=== PATIENT | male | born 1955 | race Caucasian/White ===

== ENCOUNTER → 2021-08-08 10:22 | Outpatient (BNVA) | payer MEDICARE, SELFPAY | PROVIDERS: PCP Physician Assistant; Visit Provider Urology | DX: N40.1 Benign prostatic hyperplasia with lower urinary tract symptoms (principal); N13.8 Other obstructive and reflux uropathy; R39.12 Poor urinary stream | CPT/HCPCS: 51798; 99202 ==

== ENCOUNTER 2021-09-11 15:08 | Outpatient (REF) | payer MEDICARE, SELFPAY ==
--- NOTE | ~2021-09-11 | US_ITS ---
EXAMINATION: US PELVIS LIMITED (BLADDER) CLINICAL INFORMATION: Poor urinary stream, BPH. COMPARISON: None TECHNIQUE: Real-time imaging of the bladder. FINDINGS: BLADDER: Well distended and normal. Bilateral ureteral jets are demonstrated. Prevoid bladder volume is 702 mL. Postvoid bladder volume is 303 mL. OTHER: Prostate dimensions are 3.7 x 2.8 x 4.7 cm (volume 25.4 mL). US/US bladder IMPRESSION: Findings are consistent with a significantly increased postvoid residual volume.
== END 2021-09-11 15:09 | disposition home or self-care (01) ==
LOC: HO.HMGCX 15:08
PROVIDERS: Visit Provider Urology
DX: R39.12 Poor urinary stream (principal); N40.0 Benign prostatic hyperplasia without lower urinary tract symptoms
CPT/HCPCS: 76857

== ENCOUNTER → 2021-10-10 14:04 | Outpatient (BNVA) | payer MEDICARE, SELFPAY | PROVIDERS: PCP Internal Medicine; Visit Provider Urology | DX: N40.0 Benign prostatic hyperplasia without lower urinary tract symptoms (principal); R53.83 Other fatigue; E29.1 Testicular hypofunction | CPT/HCPCS: 52000; 99212 ==

== ENCOUNTER 2021-12-29 08:00 | Outpatient (REF) | payer MEDICARE, SELFPAY ==
[2022-01-02 15:52] LABS: Testosterone, Free 43.3 pg/mL (35.0-155.0); Testosterone, Total 285 ng/dL (250-1100)
== END 2021-12-29 08:01 | disposition home or self-care (01) ==
LOC: HO.HMGCLDS 08:00
PROVIDERS: Visit Provider Urology
DX: R53.83 Other fatigue (principal); E29.1 Testicular hypofunction
CPT/HCPCS: 36415; 84402; 84403

== ENCOUNTER → 2022-01-13 14:21 | Outpatient (BNVA) | payer MEDICARE, SELFPAY | PROVIDERS: PCP Internal Medicine; Visit Provider Urology | DX: N40.0 Benign prostatic hyperplasia without lower urinary tract symptoms (principal); R68.82 Decreased libido | CPT/HCPCS: Q3014 ==

== ENCOUNTER 2022-04-01 08:36 | Outpatient (REF) | payer MEDICARE, SELFPAY ==
[2022-04-03 01:34] LABS: Follicle Stimulating Hormone 9.1 mIU/mL (1.6-8.0); Lutenizing Hormone 5.2 mIU/mL (1.6-15.2)
[2022-04-03 06:24] LABS: Sex Hormone Binding Globulin 26 nmol/L (22-77)
[2022-04-09 14:13] LABS: Testosterone, Total 309 ng/dL (250-1100)
== END 2022-04-01 08:37 | disposition home or self-care (01) ==
LOC: HO.HMGCLDS 08:36
PROVIDERS: PCP Internal Medicine; Visit Provider Urology
DX: R68.82 Decreased libido (principal)
CPT/HCPCS: 36415; 83001; 83002; 84270; 84402; 84403

== ENCOUNTER → 2022-04-15 13:22 | Outpatient (BNVA) | payer MEDICARE, SELFPAY | PROVIDERS: PCP Internal Medicine; Visit Provider Urology | DX: N40.1 Benign prostatic hyperplasia with lower urinary tract symptoms (principal); N13.8 Other obstructive and reflux uropathy; E29.1 Testicular hypofunction; N52.1 Erectile dysfunction due to diseases classified elsewhere; R97.20 Elevated prostate specific antigen [PSA]; E11.69 Type 2 diabetes mellitus with other specified complication; Z79.899 Other long term (current) drug therapy | CPT/HCPCS: Q3014 ==

== ENCOUNTER 2022-10-01 08:53 | Outpatient (REF) | payer MEDICARE, SELFPAY ==
[2022-10-03 02:24] LABS: Lutenizing Hormone 5.8 mIU/mL (1.6-15.2)
[2022-10-06 17:08] LABS: Testosterone, Total 266 ng/dL (250-1100)
== END 2022-10-01 08:54 | disposition home or self-care (01) ==
LOC: HO.HMGCLDS 08:53
PROVIDERS: PCP Internal Medicine; Visit Provider Urology
DX: E29.1 Testicular hypofunction (principal); E11.69 Type 2 diabetes mellitus with other specified complication; N52.1 Erectile dysfunction due to diseases classified elsewhere
CPT/HCPCS: 36415; 83002; 84402; 84403

== ENCOUNTER 2022-10-16 09:46 | Outpatient (AMB) | payer MEDICARE, SELFPAY ==
--- NOTE | 2022-10-16 09:48 | MHC.OFFVIS ---
Intake Intake Visit Reasons: 6M LH/Testo(pending) Intake Note: Patient is present for Follow Up Labs/pvr Urology Med: Tadalafil, Terazosin Antibiotic Allergy:None Blood Thinner: Aspirin [facility]: [facility] PVR 205ML Allergies No Known Allergies Allergy (Verified 10/16/22 09:57) Medication List - Last Reconciled 10/16/22 by Cosme Astorga MD aspirin (Adult Low Dose Aspirin) 81 mg PO DAILY rosuvastatin 40 mg PO tadalafil 5 mg PO DAILY 90 days terazosin 10 mg PO BEDTIME 90 days HPI HPI Comments History of Present Illness Details Leno is a very pleasant male. He is a patient of Dr. Duong. Seen for the following urologic conditions - lower urinary tract symptom - hypogonadism Persistently low total testosterone with adequate free testosterone Symptomatically stable Reviewed current lab work. Free testosterone good FSH elevated On rosuvastatin which has suppression activity on testosterone Recommend discussion with supervisor beater room regarding reduction of rosuvastatin Continue tadalafil daily which should increase testosterone Lower urinary tract symptoms Initial presentation with progressive weakness of stream, nocturia Current therapy terazosin Prior procedure 1999 for bladder neck Hypogonadism Labs 10/20 235, 12/20 285, T 04/23 310 F 46 FSH 9 LH 5.2, 10/21 T 266 F 62 LH 5.8 Low interest, normal erections On statins 40mg rosuvastatin PFSH Medical History BPH (benign prostatic hyperplasia) Enlarged prostate Hyperlipidemia Osteoarthritis of both hands Prostatism Surgical History History of carpal tunnel surgery Review of Systems Const Denies chills and Denies fever(s) Card Reports no additional complaints and Denies syncope Resp Denies cough GI Denies abdominal pain and Denies heartburn Reports as per HPI and Denies change in libido Neuro Denies syncope Psych Denies change in libido Endo Denies change in libido Physical Exam Const General: cooperative, healthy appearing, comfortable and no acute distress Orientation/consciousness: patient oriented x3 HEENT Face and sinus: Yes normal facial exam Mouth: moist mucous membranes Neck Neck: Yes normal visual inspection, Yes full ROM and Yes trachea midline Chest Chest palpation & inspection: normal inspection of the chest Resp Effort & Inspection: normal respiratory effort, able to speak in complete sentences and no respiratory distress GI Inspection: Yes normal to inspection Back/Spine/Pelvis Cervical Spine: normal cervical lordosis Thoracic/Lumbar Spine: thoracic and lumbar spine normal to inspection Skin General skin exam: no rashes or lesions noted Neuro General: patient oriented x3, gait normal, tone normal and moves all extremities Extrem General: Yes normal to inspection and Yes capillary refill normal Office Procedures Post Void Residual Post Residual Void Post Void Residual (PVR): [id number] Void Residual by ultrasound Assessment & Plan Assessment & Plan (1) Hypogonadism in male: Code(s): E29.1 - Testicular hypofunction (2) Libido, decreased: Code(s): R68.82 - Decreased libido Plan Six month follow-up lab work Orders: Orders AMB Post Void Residual by ultrasound 10/16/22 N40.0 - Benign prostatic hyperplasia without lower urinary tract symptoms Prostate Specific Antigen 6 Months E29.1 - Testicular hypofunction Testosterone, Free/Total 6 Months R68.82 - Decreased libido, E29.1 - Testicular hypofunction Follicle Stimulating Hormone 6 Months R68.82 - Decreased libido, E29.1 - Testicular hypofunction Lactate Dehydrogenase 6 Months C62.90 - Malignant neoplasm of unspecified testis, unspecified whether descended or undescended, E29.1 - Testicular hypofunction Medications: Refilled tadalafil 5 mg PO DAILY 90 tabs 1RF sexual activity 90 days N40.0 - Benign prostatic hyperplasia without lower urinary tract symptoms Patient Instructions: Imaging studies, laboratory and physical exam results were discussed and reviewed in detail. No major barriers to patient understanding were identified. An opportunity to ask questions regarding the treatment plan was provided. All questions were answered. The patient expressed understanding and agreement with the above treatment plan. The patient is aware they should contact our office by phone for worsening of their current condition or the appearance of new urologic symptoms. Compliance is encouraged with any medications and followup testing that is ordered. It is a privilege to participate in the urologic care of your patient. If you have any questions or concerns regarding treatment for the above conditions, or other urologic issues, please do not hesitate to contact me. The office telephone contact is [phone]. This note is constructed using voice recognition software. While every effort has been made to ensure accuracy outreach consultant errors may have been included. Yours sincerely, Dr Cosme Astorga MD, RAMÍREZ [facility] - Urology Providers of Expert, Compassionate Care for the Genitourinary System Coding Level of Care Code Est Pt Level 3 (74019) Diagnoses Hypogonadism in male E29.1 Libido, decreased R68.82 CPT Codes Post Residual Void - PVR CPT Code: 25309-Rcxm Void Residual by ultrasound ([id number])
== END 2022-10-16 11:17 | disposition home or self-care (01) ==
PROVIDERS: PCP Internal Medicine; Visit Provider Urology
DX: E29.1 Testicular hypofunction (principal); R68.82 Decreased libido
CPT/HCPCS: 99213

== ENCOUNTER → 2022-10-16 09:46 | Outpatient (BNVA) | payer MEDICARE, SELFPAY | PROVIDERS: Visit Provider Urology | DX: C62.90 Malignant neoplasm of unspecified testis, unspecified whether descended or undescended (principal); E29.1 Testicular hypofunction; N40.1 Benign prostatic hyperplasia with lower urinary tract symptoms; N13.8 Other obstructive and reflux uropathy; R68.82 Decreased libido | CPT/HCPCS: 51798; 99212 ==

== ENCOUNTER 2023-07-07 08:49 | Outpatient (REF) | payer MEDICARE, SELFPAY ==
[2023-07-07 11:07] LABS: Prostate Specific Antigen 0.58 ng/mL (<0.05-4.0)
[2023-07-07 11:24] LABS: Lactate Dehydrogenase 189 U/L (118-273)
[2023-07-08 11:04] LABS: Follicle Stimulating Hormone 8.2 mIU/mL (1.4-12.8)
[2023-07-16 20:25] LABS: Testosterone, Free 48.2 pg/mL (35.0-155.0); Testosterone, Total 268 ng/dL (250-1100)
== END 2023-07-07 08:50 | disposition home or self-care (01) ==
LOC: HO.HMGCLDS 08:49
PROVIDERS: PCP Internal Medicine; Visit Provider Urology
DX: Z12.5 Encounter for screening for malignant neoplasm of prostate (principal); E29.1 Testicular hypofunction; R68.82 Decreased libido; C62.90 Malignant neoplasm of unspecified testis, unspecified whether descended or undescended
CPT/HCPCS: 36415; 83001; 83615; 84153; 84402; 84403

== ENCOUNTER 2023-07-16 15:44 | Outpatient (AMB) | payer MEDICARE, SELFPAY ==
--- NOTE | 2023-07-16 15:54 | A.OFFVIS_ITS ---
Intake Visit Reasons: 6M Labs(set) Intake Note: Patient is present for Follow Up Labs PSA Urology Med: Tadalafil, Terazosin Antibiotic Allergy:None Blood Thinner: Aspirin [facility] Allergies No Known Allergies Allergy (Verified 10/16/22 09:57) HPI Comments Details: Leno is a very pleasant male. He is a patient of Dr. Duong. Seen for the following urologic conditions - lower urinary tract symptom - hypogonadism Persistently low total testosterone with adequate free testosterone Symptomatically stable Reviewed current lab work. Lab work borderline low Continue tadalafil daily which might increase testosterone Six-month follow-up lab work If low would start testosterone replacement Lower urinary tract symptoms Initial presentation with progressive weakness of stream, nocturia Current therapy terazosin Prior procedure 1999 for bladder neck Hypogonadism Labs 10/20 235, 12/20 285, T 04/23 310 F 46 FSH 9 LH 5.2, 10/21 T 266 F 62 LH 5.8, 07/22 T 268 FSH 8.2 LH 5.8 Low interest, normal erections On statins 40mg rosuvastatin [facility] Medical History BPH (benign prostatic hyperplasia) Enlarged prostate Hyperlipidemia Osteoarthritis of both hands Prostatism Surgical History History of carpal tunnel surgery Review of Systems Const Denies chills and Denies fever(s) Card Reports no additional complaints and Denies syncope Resp Denies cough GI Denies abdominal pain and Denies heartburn Reports as per HPI and Denies change in libido Neuro Denies syncope Psych Denies change in libido Endo Denies change in libido Physical Exam Const General: cooperative, healthy appearing, comfortable and no acute distress Orientation/consciousness: patient oriented x3 HEENT Face and sinus: Yes normal facial exam Mouth: moist mucous membranes Neck Neck: Yes normal visual inspection, Yes full ROM and Yes trachea midline Chest Chest palpation & inspection: normal inspection of the chest Resp Effort & Inspection: normal respiratory effort, able to speak in complete sentences and no respiratory distress GI Inspection: Yes normal to inspection Back/Spine/Pelvis Cervical Spine: normal cervical lordosis Thoracic/Lumbar Spine: thoracic and lumbar spine normal to inspection Skin General skin exam: no rashes or lesions noted Neuro General: patient oriented x3, gait normal, tone normal and moves all extremities Extrem General: Yes normal to inspection and Yes capillary refill normal Assessment & Plan Assessment & Plan (1) Hypogonadism in male: Code(s): E29.1 - Testicular hypofunction Category: Medical (2) BPH (benign prostatic hyperplasia): Code(s): N40.0 - Benign prostatic hyperplasia without lower urinary tract symptoms Category: Medical Plan Six-month follow-up labs Orders: Orders Testosterone, Free/Total 6 Months R68.82 - Decreased libido, E29.1 - Testicular hypofunction Patient Instructions: Imaging studies, laboratory and physical exam results were discussed and reviewed in detail. No major barriers to patient understanding were identified. An opportunity to ask questions regarding the treatment plan was provided. All questions were answered. The patient expressed understanding and agreement with the above treatment plan. The patient is aware they should contact our office by phone for worsening of their current condition or the appearance of new urologic symptoms. Compliance is encouraged with any medications and followup testing that is ordered. It is a privilege to participate in the urologic care of your patient. If you have any questions or concerns regarding treatment for the above conditions, or other urologic issues, please do not hesitate to contact me. The office telephone contact is [phone]. This note is constructed using voice recognition software. While every effort has been made to ensure accuracy radiology transcriptionist errors may have been included. Yours sincerely, Dr Cosme Astorga MD, RAMÍREZ [facility] - Urology Providers of Expert, Compassionate Care for the Genitourinary System Coding Level of Care Code Est Pt Level 3 (71334) Diagnoses Hypogonadism in male E29.1 BPH (benign prostatic hyperplasia) N40.0
== END 2023-07-16 16:12 | disposition home or self-care (01) ==
PROVIDERS: PCP Internal Medicine; Visit Provider Urology
DX: E29.1 Testicular hypofunction (principal); N40.0 Benign prostatic hyperplasia without lower urinary tract symptoms
CPT/HCPCS: 99213

== ENCOUNTER → 2023-07-16 15:44 | Outpatient (BNVA) | payer MEDICARE, SELFPAY | PROVIDERS: PCP Internal Medicine; Visit Provider Urology | DX: E29.1 Testicular hypofunction (principal); N40.0 Benign prostatic hyperplasia without lower urinary tract symptoms | CPT/HCPCS: 99212 ==

== ENCOUNTER 2023-12-10 09:52 | Outpatient (REF) | payer MEDICARE, SELFPAY ==
--- NOTE | ~2023-12-10 | XR_ITS ---
EXAMINATION: XR cervical spine 3V (accession [id number]) XR wrist LT min 3V (accession [id number]) XR hand LT min 3V (accession [id number]) XR wrist RT min 3V (accession [id number]) XR hand RT min 3V (accession [id number]) XR hip LT min 2V (accession [id number]) XR knee LT 3V (accession [id number]) XR hip RT min 2V (accession [id number]) XR knee RT 3V (accession [id number]) XR ankle LT 2V (accession [id number]) XR foot LT 2V (accession [id number]) XR ankle RT 2V (accession [id number]) XR foot RT 2V (accession [id number]) CLINICAL INFORMATION: Cervicalgia Personal history of other diseases of the musculoskeletal system Pain in unspecified hand Unilateral primary osteoarthritis, left hip Pain in unspecified joint Pain in right hip Unspecified osteoarthritis, unspecified site Pain in unspecified foot COMPARISON: None. TECHNIQUE: AP, lateral and odontoid views of cervical spine, 4 images. PA, lateral and oblique views left wrist, 3 images. PA, lateral and oblique views left hand, 3 images. PA, lateral and oblique views right wrist, 3 images. PA, lateral and oblique views right hand, 3 images. AP and frog-leg lateral views of the left hip, 2 images. AP, lateral and sunrise views of the left knee, 3 images. AP and frog-leg lateral views of the right hip, 2 images. AP, lateral and sunrise views of the right knee, 3 images. AP and oblique views of the left ankle, 2 images. AP, lateral and oblique views of the left foot, 3 images. AP and oblique views of the right ankle, 2 images. AP, lateral and oblique views of the right foot, 3 images. FINDINGS: Cervical spine: Vertebral body heights are normal without evidence of fracture. Alignment is anatomic. No spondylolisthesis. Multilevel degenerative disc disease from C4 to C7 with loss of intervertebral disc height and marginal osteophytes. Facet joints are normal. Alignment is maintained at the atlanto-axial articulation. The prevertebral soft tissues are normal. Visualized lung apices are clear. Left carotid bifurcation calcifications noted. Left wrist: Intact dorsal distal radial plate and screw fixation hardware without evidence of loosening or failure. No acute fracture. Chronic styloid process fracture seen. Carpal rows are in anatomic alignment. There is joint space narrowing at the radiocarpal joint. Moderate first carpometacarpal joint arthrosis with joint cyst measuring and osteophytosis. Mild first metacarpophalangeal joint arthrosis with marginal osteophytes. No focal soft tissue sign. Left hand: No acute fracture. Osseous structures of the hand are in anatomic alignment joint space is maintained. Second distal interphalangeal joint arthrosis with marginal osteophytes and a well-corticated osseous body. No osseous erosions. No focal soft tissue swelling. No radiopaque foreign body. Right wrist: No acute fracture. The carpal rows are appropriately aligned. Mild to moderate radiocarpal arthrosis with joint space narrowing and subchondral sclerosis. Otherwise, joint spaces are maintained. Alignment is anatomic. No erosions or soft tissue calcifications. Right hand: A 0.2 cm linear radiopaque density overlies the finger tip pad of the fifth digit and a punctate radiopaque density overlies the finger tip at the thumb. No acute fracture. Mild to moderate first digit metacarpophalangeal joint arthrosis with osteophytosis. Osseous structures remain in anatomic alignment with joint spaces maintained. No osseous erosion or soft tissue calcification. Left hip: No acute fracture. The left femoral head is well-seated within the acetabulum. Mild arthrosis with subchondral sclerosis and osteophytosis. The visualized pelvic viscera is intact. No pubic symphysis diastasis. The visualized sacroiliac joints are well-maintained without erosions or surrounding sclerosis. Mild arterial calcifications noted. Left knee: Mild medial compartment arthrosis with joint space narrowing and marginal osteophytes. Chondrocalcinosis overlies the lateral greater than medial compartments. Enthesopathic changes off the inferior patella. No evidence of acute fracture. Alignment is anatomic. No significant effusion or soft tissue swelling. No radiopaque foreign body. Right hip: No acute fracture. The femoral head is well-seated within the acetabulum. Mild arthrosis with joint space narrowing, subchondral sclerosis and osteophytosis. Visualized pelvic rim is intact. Right knee: Chondrocalcinosis overlies the lateral and medial compartment. No evidence of acute fracture. Alignment is anatomic. No significant effusion or soft tissue swelling. Mild arterial calcifications noted. Left ankle: Alignment is anatomic. Ankle mortise is symmetric. No evidence of acute fracture. No significant focal soft tissue swelling or joint effusion. Left foot: Mild to moderate first metatarsophalangeal joint arthrosis with marginal osteophytes and subchondral cysts. Alignment is anatomic. No evidence of acute fracture. No erosions. No significant focal soft tissue swelling. Right ankle: Alignment is anatomic. Ankle mortise is symmetric. No evidence of acute fracture. No significant focal soft tissue swelling or joint effusion. Right foot: Mild first metatarsophalangeal joint arthrosis with marginal osteophytes. Alignment is anatomic. No evidence of acute fracture. No erosions. No significant focal soft tissue swelling. No radiopaque foreign body. XR/XR hand LT min 3V IMPRESSION: 1. No acute fracture or malalignment of the cervical spine, left wrist, left hand, right wrist, right hand, left hip, left knee, right hip, right knee, left ankle, left foot, right knee or right foot. 2. Multilevel degenerative disc disease from C4 to C7. 3. Mild to moderate degenerative changes of the bilateral hands and wrists. 4. Mild degenerative changes of the bilateral hips and knees. 5. Chondrocalcinosis overlies the bilateral knees. Electronically signed by: Makayla Norton DO 12/23/2023 11:28 AM EDT
--- NOTE | ~2023-12-10 | XR_ITS ---
EXAMINATION: XR cervical spine 3V (accession [id number]) XR wrist LT min 3V (accession [id number]) XR hand LT min 3V (accession [id number]) XR wrist RT min 3V (accession [id number]) XR hand RT min 3V (accession [id number]) XR hip LT min 2V (accession [id number]) XR knee LT 3V (accession [id number]) XR hip RT min 2V (accession [id number]) XR knee RT 3V (accession [id number]) XR ankle LT 2V (accession [id number]) XR foot LT 2V (accession [id number]) XR ankle RT 2V (accession [id number]) XR foot RT 2V (accession [id number]) CLINICAL INFORMATION: Cervicalgia Personal history of other diseases of the musculoskeletal system Pain in unspecified hand Unilateral primary osteoarthritis, left hip Pain in unspecified joint Pain in right hip Unspecified osteoarthritis, unspecified site Pain in unspecified foot COMPARISON: None. TECHNIQUE: AP, lateral and odontoid views of cervical spine, 4 images. PA, lateral and oblique views left wrist, 3 images. PA, lateral and oblique views left hand, 3 images. PA, lateral and oblique views right wrist, 3 images. PA, lateral and oblique views right hand, 3 images. AP and frog-leg lateral views of the left hip, 2 images. AP, lateral and sunrise views of the left knee, 3 images. AP and frog-leg lateral views of the right hip, 2 images. AP, lateral and sunrise views of the right knee, 3 images. AP and oblique views of the left ankle, 2 images. AP, lateral and oblique views of the left foot, 3 images. AP and oblique views of the right ankle, 2 images. AP, lateral and oblique views of the right foot, 3 images. FINDINGS: Cervical spine: Vertebral body heights are normal without evidence of fracture. Alignment is anatomic. No spondylolisthesis. Multilevel degenerative disc disease from C4 to C7 with loss of intervertebral disc height and marginal osteophytes. Facet joints are normal. Alignment is maintained at the atlanto-axial articulation. The prevertebral soft tissues are normal. Visualized lung apices are clear. Left carotid bifurcation calcifications noted. Left wrist: Intact dorsal distal radial plate and screw fixation hardware without evidence of loosening or failure. No acute fracture. Chronic styloid process fracture seen. Carpal rows are in anatomic alignment. There is joint space narrowing at the radiocarpal joint. Moderate first carpometacarpal joint arthrosis with joint cyst measuring and osteophytosis. Mild first metacarpophalangeal joint arthrosis with marginal osteophytes. No focal soft tissue sign. Left hand: No acute fracture. Osseous structures of the hand are in anatomic alignment joint space is maintained. Second distal interphalangeal joint arthrosis with marginal osteophytes and a well-corticated osseous body. No osseous erosions. No focal soft tissue swelling. No radiopaque foreign body. Right wrist: No acute fracture. The carpal rows are appropriately aligned. Mild to moderate radiocarpal arthrosis with joint space narrowing and subchondral sclerosis. Otherwise, joint spaces are maintained. Alignment is anatomic. No erosions or soft tissue calcifications. Right hand: A 0.2 cm linear radiopaque density overlies the finger tip pad of the fifth digit and a punctate radiopaque density overlies the finger tip at the thumb. No acute fracture. Mild to moderate first digit metacarpophalangeal joint arthrosis with osteophytosis. Osseous structures remain in anatomic alignment with joint spaces maintained. No osseous erosion or soft tissue calcification. Left hip: No acute fracture. The left femoral head is well-seated within the acetabulum. Mild arthrosis with subchondral sclerosis and osteophytosis. The visualized pelvic viscera is intact. No pubic symphysis diastasis. The visualized sacroiliac joints are well-maintained without erosions or surrounding sclerosis. Mild arterial calcifications noted. Left knee: Mild medial compartment arthrosis with joint space narrowing and marginal osteophytes. Chondrocalcinosis overlies the lateral greater than medial compartments. Enthesopathic changes off the inferior patella. No evidence of acute fracture. Alignment is anatomic. No significant effusion or soft tissue swelling. No radiopaque foreign body. Right hip: No acute fracture. The femoral head is well-seated within the acetabulum. Mild arthrosis with joint space narrowing, subchondral sclerosis and osteophytosis. Visualized pelvic rim is intact. Right knee: Chondrocalcinosis overlies the lateral and medial compartment. No evidence of acute fracture. Alignment is anatomic. No significant effusion or soft tissue swelling. Mild arterial calcifications noted. Left ankle: Alignment is anatomic. Ankle mortise is symmetric. No evidence of acute fracture. No significant focal soft tissue swelling or joint effusion. Left foot: Mild to moderate first metatarsophalangeal joint arthrosis with marginal osteophytes and subchondral cysts. Alignment is anatomic. No evidence of acute fracture. No erosions. No significant focal soft tissue swelling. Right ankle: Alignment is anatomic. Ankle mortise is symmetric. No evidence of acute fracture. No significant focal soft tissue swelling or joint effusion. Right foot: Mild first metatarsophalangeal joint arthrosis with marginal osteophytes. Alignment is anatomic. No evidence of acute fracture. No erosions. No significant focal soft tissue swelling. No radiopaque foreign body. XR/XR hand RT min 3V IMPRESSION: 1. No acute fracture or malalignment of the cervical spine, left wrist, left hand, right wrist, right hand, left hip, left knee, right hip, right knee, left ankle, left foot, right knee or right foot. 2. Multilevel degenerative disc disease from C4 to C7. 3. Mild to moderate degenerative changes of the bilateral hands and wrists. 4. Mild degenerative changes of the bilateral hips and knees. 5. Chondrocalcinosis overlies the bilateral knees. Electronically signed by: Makayla Norton DO 12/23/2023 11:28 AM EDT
--- NOTE | ~2023-12-10 | XR_ITS ---
EXAMINATION: XR cervical spine 3V (accession [id number]) XR wrist LT min 3V (accession [id number]) XR hand LT min 3V (accession [id number]) XR wrist RT min 3V (accession [id number]) XR hand RT min 3V (accession [id number]) XR hip LT min 2V (accession [id number]) XR knee LT 3V (accession [id number]) XR hip RT min 2V (accession [id number]) XR knee RT 3V (accession [id number]) XR ankle LT 2V (accession [id number]) XR foot LT 2V (accession [id number]) XR ankle RT 2V (accession [id number]) XR foot RT 2V (accession [id number]) CLINICAL INFORMATION: Cervicalgia Personal history of other diseases of the musculoskeletal system Pain in unspecified hand Unilateral primary osteoarthritis, left hip Pain in unspecified joint Pain in right hip Unspecified osteoarthritis, unspecified site Pain in unspecified foot COMPARISON: None. TECHNIQUE: AP, lateral and odontoid views of cervical spine, 4 images. PA, lateral and oblique views left wrist, 3 images. PA, lateral and oblique views left hand, 3 images. PA, lateral and oblique views right wrist, 3 images. PA, lateral and oblique views right hand, 3 images. AP and frog-leg lateral views of the left hip, 2 images. AP, lateral and sunrise views of the left knee, 3 images. AP and frog-leg lateral views of the right hip, 2 images. AP, lateral and sunrise views of the right knee, 3 images. AP and oblique views of the left ankle, 2 images. AP, lateral and oblique views of the left foot, 3 images. AP and oblique views of the right ankle, 2 images. AP, lateral and oblique views of the right foot, 3 images. FINDINGS: Cervical spine: Vertebral body heights are normal without evidence of fracture. Alignment is anatomic. No spondylolisthesis. Multilevel degenerative disc disease from C4 to C7 with loss of intervertebral disc height and marginal osteophytes. Facet joints are normal. Alignment is maintained at the atlanto-axial articulation. The prevertebral soft tissues are normal. Visualized lung apices are clear. Left carotid bifurcation calcifications noted. Left wrist: Intact dorsal distal radial plate and screw fixation hardware without evidence of loosening or failure. No acute fracture. Chronic styloid process fracture seen. Carpal rows are in anatomic alignment. There is joint space narrowing at the radiocarpal joint. Moderate first carpometacarpal joint arthrosis with joint cyst measuring and osteophytosis. Mild first metacarpophalangeal joint arthrosis with marginal osteophytes. No focal soft tissue sign. Left hand: No acute fracture. Osseous structures of the hand are in anatomic alignment joint space is maintained. Second distal interphalangeal joint arthrosis with marginal osteophytes and a well-corticated osseous body. No osseous erosions. No focal soft tissue swelling. No radiopaque foreign body. Right wrist: No acute fracture. The carpal rows are appropriately aligned. Mild to moderate radiocarpal arthrosis with joint space narrowing and subchondral sclerosis. Otherwise, joint spaces are maintained. Alignment is anatomic. No erosions or soft tissue calcifications. Right hand: A 0.2 cm linear radiopaque density overlies the finger tip pad of the fifth digit and a punctate radiopaque density overlies the finger tip at the thumb. No acute fracture. Mild to moderate first digit metacarpophalangeal joint arthrosis with osteophytosis. Osseous structures remain in anatomic alignment with joint spaces maintained. No osseous erosion or soft tissue calcification. Left hip: No acute fracture. The left femoral head is well-seated within the acetabulum. Mild arthrosis with subchondral sclerosis and osteophytosis. The visualized pelvic viscera is intact. No pubic symphysis diastasis. The visualized sacroiliac joints are well-maintained without erosions or surrounding sclerosis. Mild arterial calcifications noted. Left knee: Mild medial compartment arthrosis with joint space narrowing and marginal osteophytes. Chondrocalcinosis overlies the lateral greater than medial compartments. Enthesopathic changes off the inferior patella. No evidence of acute fracture. Alignment is anatomic. No significant effusion or soft tissue swelling. No radiopaque foreign body. Right hip: No acute fracture. The femoral head is well-seated within the acetabulum. Mild arthrosis with joint space narrowing, subchondral sclerosis and osteophytosis. Visualized pelvic rim is intact. Right knee: Chondrocalcinosis overlies the lateral and medial compartment. No evidence of acute fracture. Alignment is anatomic. No significant effusion or soft tissue swelling. Mild arterial calcifications noted. Left ankle: Alignment is anatomic. Ankle mortise is symmetric. No evidence of acute fracture. No significant focal soft tissue swelling or joint effusion. Left foot: Mild to moderate first metatarsophalangeal joint arthrosis with marginal osteophytes and subchondral cysts. Alignment is anatomic. No evidence of acute fracture. No erosions. No significant focal soft tissue swelling. Right ankle: Alignment is anatomic. Ankle mortise is symmetric. No evidence of acute fracture. No significant focal soft tissue swelling or joint effusion. Right foot: Mild first metatarsophalangeal joint arthrosis with marginal osteophytes. Alignment is anatomic. No evidence of acute fracture. No erosions. No significant focal soft tissue swelling. No radiopaque foreign body. XR/XR ankle RT 2V IMPRESSION: 1. No acute fracture or malalignment of the cervical spine, left wrist, left hand, right wrist, right hand, left hip, left knee, right hip, right knee, left ankle, left foot, right knee or right foot. 2. Multilevel degenerative disc disease from C4 to C7. 3. Mild to moderate degenerative changes of the bilateral hands and wrists. 4. Mild degenerative changes of the bilateral hips and knees. 5. Chondrocalcinosis overlies the bilateral knees. Electronically signed by: Makayla Norton DO 12/23/2023 11:28 AM EDT
--- NOTE | ~2023-12-10 | XR_ITS ---
EXAMINATION: XR cervical spine 3V (accession [id number]) XR wrist LT min 3V (accession [id number]) XR hand LT min 3V (accession [id number]) XR wrist RT min 3V (accession [id number]) XR hand RT min 3V (accession [id number]) XR hip LT min 2V (accession [id number]) XR knee LT 3V (accession [id number]) XR hip RT min 2V (accession [id number]) XR knee RT 3V (accession [id number]) XR ankle LT 2V (accession [id number]) XR foot LT 2V (accession [id number]) XR ankle RT 2V (accession [id number]) XR foot RT 2V (accession [id number]) CLINICAL INFORMATION: Cervicalgia Personal history of other diseases of the musculoskeletal system Pain in unspecified hand Unilateral primary osteoarthritis, left hip Pain in unspecified joint Pain in right hip Unspecified osteoarthritis, unspecified site Pain in unspecified foot COMPARISON: None. TECHNIQUE: AP, lateral and odontoid views of cervical spine, 4 images. PA, lateral and oblique views left wrist, 3 images. PA, lateral and oblique views left hand, 3 images. PA, lateral and oblique views right wrist, 3 images. PA, lateral and oblique views right hand, 3 images. AP and frog-leg lateral views of the left hip, 2 images. AP, lateral and sunrise views of the left knee, 3 images. AP and frog-leg lateral views of the right hip, 2 images. AP, lateral and sunrise views of the right knee, 3 images. AP and oblique views of the left ankle, 2 images. AP, lateral and oblique views of the left foot, 3 images. AP and oblique views of the right ankle, 2 images. AP, lateral and oblique views of the right foot, 3 images. FINDINGS: Cervical spine: Vertebral body heights are normal without evidence of fracture. Alignment is anatomic. No spondylolisthesis. Multilevel degenerative disc disease from C4 to C7 with loss of intervertebral disc height and marginal osteophytes. Facet joints are normal. Alignment is maintained at the atlanto-axial articulation. The prevertebral soft tissues are normal. Visualized lung apices are clear. Left carotid bifurcation calcifications noted. Left wrist: Intact dorsal distal radial plate and screw fixation hardware without evidence of loosening or failure. No acute fracture. Chronic styloid process fracture seen. Carpal rows are in anatomic alignment. There is joint space narrowing at the radiocarpal joint. Moderate first carpometacarpal joint arthrosis with joint cyst measuring and osteophytosis. Mild first metacarpophalangeal joint arthrosis with marginal osteophytes. No focal soft tissue sign. Left hand: No acute fracture. Osseous structures of the hand are in anatomic alignment joint space is maintained. Second distal interphalangeal joint arthrosis with marginal osteophytes and a well-corticated osseous body. No osseous erosions. No focal soft tissue swelling. No radiopaque foreign body. Right wrist: No acute fracture. The carpal rows are appropriately aligned. Mild to moderate radiocarpal arthrosis with joint space narrowing and subchondral sclerosis. Otherwise, joint spaces are maintained. Alignment is anatomic. No erosions or soft tissue calcifications. Right hand: A 0.2 cm linear radiopaque density overlies the finger tip pad of the fifth digit and a punctate radiopaque density overlies the finger tip at the thumb. No acute fracture. Mild to moderate first digit metacarpophalangeal joint arthrosis with osteophytosis. Osseous structures remain in anatomic alignment with joint spaces maintained. No osseous erosion or soft tissue calcification. Left hip: No acute fracture. The left femoral head is well-seated within the acetabulum. Mild arthrosis with subchondral sclerosis and osteophytosis. The visualized pelvic viscera is intact. No pubic symphysis diastasis. The visualized sacroiliac joints are well-maintained without erosions or surrounding sclerosis. Mild arterial calcifications noted. Left knee: Mild medial compartment arthrosis with joint space narrowing and marginal osteophytes. Chondrocalcinosis overlies the lateral greater than medial compartments. Enthesopathic changes off the inferior patella. No evidence of acute fracture. Alignment is anatomic. No significant effusion or soft tissue swelling. No radiopaque foreign body. Right hip: No acute fracture. The femoral head is well-seated within the acetabulum. Mild arthrosis with joint space narrowing, subchondral sclerosis and osteophytosis. Visualized pelvic rim is intact. Right knee: Chondrocalcinosis overlies the lateral and medial compartment. No evidence of acute fracture. Alignment is anatomic. No significant effusion or soft tissue swelling. Mild arterial calcifications noted. Left ankle: Alignment is anatomic. Ankle mortise is symmetric. No evidence of acute fracture. No significant focal soft tissue swelling or joint effusion. Left foot: Mild to moderate first metatarsophalangeal joint arthrosis with marginal osteophytes and subchondral cysts. Alignment is anatomic. No evidence of acute fracture. No erosions. No significant focal soft tissue swelling. Right ankle: Alignment is anatomic. Ankle mortise is symmetric. No evidence of acute fracture. No significant focal soft tissue swelling or joint effusion. Right foot: Mild first metatarsophalangeal joint arthrosis with marginal osteophytes. Alignment is anatomic. No evidence of acute fracture. No erosions. No significant focal soft tissue swelling. No radiopaque foreign body. XR/XR foot RT 2V IMPRESSION: 1. No acute fracture or malalignment of the cervical spine, left wrist, left hand, right wrist, right hand, left hip, left knee, right hip, right knee, left ankle, left foot, right knee or right foot. 2. Multilevel degenerative disc disease from C4 to C7. 3. Mild to moderate degenerative changes of the bilateral hands and wrists. 4. Mild degenerative changes of the bilateral hips and knees. 5. Chondrocalcinosis overlies the bilateral knees. Electronically signed by: Makayla Norton DO 12/23/2023 11:28 AM EDT
--- NOTE | ~2023-12-10 | XR_ITS ---
EXAMINATION: XR cervical spine 3V (accession [id number]) XR wrist LT min 3V (accession [id number]) XR hand LT min 3V (accession [id number]) XR wrist RT min 3V (accession [id number]) XR hand RT min 3V (accession [id number]) XR hip LT min 2V (accession [id number]) XR knee LT 3V (accession [id number]) XR hip RT min 2V (accession [id number]) XR knee RT 3V (accession [id number]) XR ankle LT 2V (accession [id number]) XR foot LT 2V (accession [id number]) XR ankle RT 2V (accession [id number]) XR foot RT 2V (accession [id number]) CLINICAL INFORMATION: Cervicalgia Personal history of other diseases of the musculoskeletal system Pain in unspecified hand Unilateral primary osteoarthritis, left hip Pain in unspecified joint Pain in right hip Unspecified osteoarthritis, unspecified site Pain in unspecified foot COMPARISON: None. TECHNIQUE: AP, lateral and odontoid views of cervical spine, 4 images. PA, lateral and oblique views left wrist, 3 images. PA, lateral and oblique views left hand, 3 images. PA, lateral and oblique views right wrist, 3 images. PA, lateral and oblique views right hand, 3 images. AP and frog-leg lateral views of the left hip, 2 images. AP, lateral and sunrise views of the left knee, 3 images. AP and frog-leg lateral views of the right hip, 2 images. AP, lateral and sunrise views of the right knee, 3 images. AP and oblique views of the left ankle, 2 images. AP, lateral and oblique views of the left foot, 3 images. AP and oblique views of the right ankle, 2 images. AP, lateral and oblique views of the right foot, 3 images. FINDINGS: Cervical spine: Vertebral body heights are normal without evidence of fracture. Alignment is anatomic. No spondylolisthesis. Multilevel degenerative disc disease from C4 to C7 with loss of intervertebral disc height and marginal osteophytes. Facet joints are normal. Alignment is maintained at the atlanto-axial articulation. The prevertebral soft tissues are normal. Visualized lung apices are clear. Left carotid bifurcation calcifications noted. Left wrist: Intact dorsal distal radial plate and screw fixation hardware without evidence of loosening or failure. No acute fracture. Chronic styloid process fracture seen. Carpal rows are in anatomic alignment. There is joint space narrowing at the radiocarpal joint. Moderate first carpometacarpal joint arthrosis with joint cyst measuring and osteophytosis. Mild first metacarpophalangeal joint arthrosis with marginal osteophytes. No focal soft tissue sign. Left hand: No acute fracture. Osseous structures of the hand are in anatomic alignment joint space is maintained. Second distal interphalangeal joint arthrosis with marginal osteophytes and a well-corticated osseous body. No osseous erosions. No focal soft tissue swelling. No radiopaque foreign body. Right wrist: No acute fracture. The carpal rows are appropriately aligned. Mild to moderate radiocarpal arthrosis with joint space narrowing and subchondral sclerosis. Otherwise, joint spaces are maintained. Alignment is anatomic. No erosions or soft tissue calcifications. Right hand: A 0.2 cm linear radiopaque density overlies the finger tip pad of the fifth digit and a punctate radiopaque density overlies the finger tip at the thumb. No acute fracture. Mild to moderate first digit metacarpophalangeal joint arthrosis with osteophytosis. Osseous structures remain in anatomic alignment with joint spaces maintained. No osseous erosion or soft tissue calcification. Left hip: No acute fracture. The left femoral head is well-seated within the acetabulum. Mild arthrosis with subchondral sclerosis and osteophytosis. The visualized pelvic viscera is intact. No pubic symphysis diastasis. The visualized sacroiliac joints are well-maintained without erosions or surrounding sclerosis. Mild arterial calcifications noted. Left knee: Mild medial compartment arthrosis with joint space narrowing and marginal osteophytes. Chondrocalcinosis overlies the lateral greater than medial compartments. Enthesopathic changes off the inferior patella. No evidence of acute fracture. Alignment is anatomic. No significant effusion or soft tissue swelling. No radiopaque foreign body. Right hip: No acute fracture. The femoral head is well-seated within the acetabulum. Mild arthrosis with joint space narrowing, subchondral sclerosis and osteophytosis. Visualized pelvic rim is intact. Right knee: Chondrocalcinosis overlies the lateral and medial compartment. No evidence of acute fracture. Alignment is anatomic. No significant effusion or soft tissue swelling. Mild arterial calcifications noted. Left ankle: Alignment is anatomic. Ankle mortise is symmetric. No evidence of acute fracture. No significant focal soft tissue swelling or joint effusion. Left foot: Mild to moderate first metatarsophalangeal joint arthrosis with marginal osteophytes and subchondral cysts. Alignment is anatomic. No evidence of acute fracture. No erosions. No significant focal soft tissue swelling. Right ankle: Alignment is anatomic. Ankle mortise is symmetric. No evidence of acute fracture. No significant focal soft tissue swelling or joint effusion. Right foot: Mild first metatarsophalangeal joint arthrosis with marginal osteophytes. Alignment is anatomic. No evidence of acute fracture. No erosions. No significant focal soft tissue swelling. No radiopaque foreign body. XR/XR hip LT min 2V IMPRESSION: 1. No acute fracture or malalignment of the cervical spine, left wrist, left hand, right wrist, right hand, left hip, left knee, right hip, right knee, left ankle, left foot, right knee or right foot. 2. Multilevel degenerative disc disease from C4 to C7. 3. Mild to moderate degenerative changes of the bilateral hands and wrists. 4. Mild degenerative changes of the bilateral hips and knees. 5. Chondrocalcinosis overlies the bilateral knees. Electronically signed by: Makayla Norton DO 12/23/2023 11:28 AM EDT
--- NOTE | ~2023-12-10 | XR_ITS ---
EXAMINATION: XR cervical spine 3V (accession [id number]) XR wrist LT min 3V (accession [id number]) XR hand LT min 3V (accession [id number]) XR wrist RT min 3V (accession [id number]) XR hand RT min 3V (accession [id number]) XR hip LT min 2V (accession [id number]) XR knee LT 3V (accession [id number]) XR hip RT min 2V (accession [id number]) XR knee RT 3V (accession [id number]) XR ankle LT 2V (accession [id number]) XR foot LT 2V (accession [id number]) XR ankle RT 2V (accession [id number]) XR foot RT 2V (accession [id number]) CLINICAL INFORMATION: Cervicalgia Personal history of other diseases of the musculoskeletal system Pain in unspecified hand Unilateral primary osteoarthritis, left hip Pain in unspecified joint Pain in right hip Unspecified osteoarthritis, unspecified site Pain in unspecified foot COMPARISON: None. TECHNIQUE: AP, lateral and odontoid views of cervical spine, 4 images. PA, lateral and oblique views left wrist, 3 images. PA, lateral and oblique views left hand, 3 images. PA, lateral and oblique views right wrist, 3 images. PA, lateral and oblique views right hand, 3 images. AP and frog-leg lateral views of the left hip, 2 images. AP, lateral and sunrise views of the left knee, 3 images. AP and frog-leg lateral views of the right hip, 2 images. AP, lateral and sunrise views of the right knee, 3 images. AP and oblique views of the left ankle, 2 images. AP, lateral and oblique views of the left foot, 3 images. AP and oblique views of the right ankle, 2 images. AP, lateral and oblique views of the right foot, 3 images. FINDINGS: Cervical spine: Vertebral body heights are normal without evidence of fracture. Alignment is anatomic. No spondylolisthesis. Multilevel degenerative disc disease from C4 to C7 with loss of intervertebral disc height and marginal osteophytes. Facet joints are normal. Alignment is maintained at the atlanto-axial articulation. The prevertebral soft tissues are normal. Visualized lung apices are clear. Left carotid bifurcation calcifications noted. Left wrist: Intact dorsal distal radial plate and screw fixation hardware without evidence of loosening or failure. No acute fracture. Chronic styloid process fracture seen. Carpal rows are in anatomic alignment. There is joint space narrowing at the radiocarpal joint. Moderate first carpometacarpal joint arthrosis with joint cyst measuring and osteophytosis. Mild first metacarpophalangeal joint arthrosis with marginal osteophytes. No focal soft tissue sign. Left hand: No acute fracture. Osseous structures of the hand are in anatomic alignment joint space is maintained. Second distal interphalangeal joint arthrosis with marginal osteophytes and a well-corticated osseous body. No osseous erosions. No focal soft tissue swelling. No radiopaque foreign body. Right wrist: No acute fracture. The carpal rows are appropriately aligned. Mild to moderate radiocarpal arthrosis with joint space narrowing and subchondral sclerosis. Otherwise, joint spaces are maintained. Alignment is anatomic. No erosions or soft tissue calcifications. Right hand: A 0.2 cm linear radiopaque density overlies the finger tip pad of the fifth digit and a punctate radiopaque density overlies the finger tip at the thumb. No acute fracture. Mild to moderate first digit metacarpophalangeal joint arthrosis with osteophytosis. Osseous structures remain in anatomic alignment with joint spaces maintained. No osseous erosion or soft tissue calcification. Left hip: No acute fracture. The left femoral head is well-seated within the acetabulum. Mild arthrosis with subchondral sclerosis and osteophytosis. The visualized pelvic viscera is intact. No pubic symphysis diastasis. The visualized sacroiliac joints are well-maintained without erosions or surrounding sclerosis. Mild arterial calcifications noted. Left knee: Mild medial compartment arthrosis with joint space narrowing and marginal osteophytes. Chondrocalcinosis overlies the lateral greater than medial compartments. Enthesopathic changes off the inferior patella. No evidence of acute fracture. Alignment is anatomic. No significant effusion or soft tissue swelling. No radiopaque foreign body. Right hip: No acute fracture. The femoral head is well-seated within the acetabulum. Mild arthrosis with joint space narrowing, subchondral sclerosis and osteophytosis. Visualized pelvic rim is intact. Right knee: Chondrocalcinosis overlies the lateral and medial compartment. No evidence of acute fracture. Alignment is anatomic. No significant effusion or soft tissue swelling. Mild arterial calcifications noted. Left ankle: Alignment is anatomic. Ankle mortise is symmetric. No evidence of acute fracture. No significant focal soft tissue swelling or joint effusion. Left foot: Mild to moderate first metatarsophalangeal joint arthrosis with marginal osteophytes and subchondral cysts. Alignment is anatomic. No evidence of acute fracture. No erosions. No significant focal soft tissue swelling. Right ankle: Alignment is anatomic. Ankle mortise is symmetric. No evidence of acute fracture. No significant focal soft tissue swelling or joint effusion. Right foot: Mild first metatarsophalangeal joint arthrosis with marginal osteophytes. Alignment is anatomic. No evidence of acute fracture. No erosions. No significant focal soft tissue swelling. No radiopaque foreign body. XR/XR cervical spine 3V IMPRESSION: 1. No acute fracture or malalignment of the cervical spine, left wrist, left hand, right wrist, right hand, left hip, left knee, right hip, right knee, left ankle, left foot, right knee or right foot. 2. Multilevel degenerative disc disease from C4 to C7. 3. Mild to moderate degenerative changes of the bilateral hands and wrists. 4. Mild degenerative changes of the bilateral hips and knees. 5. Chondrocalcinosis overlies the bilateral knees. Electronically signed by: Makayla Norton DO 12/23/2023 11:28 AM EDT
--- NOTE | ~2023-12-10 | XR_ITS ---
EXAMINATION: XR cervical spine 3V (accession [id number]) XR wrist LT min 3V (accession [id number]) XR hand LT min 3V (accession [id number]) XR wrist RT min 3V (accession [id number]) XR hand RT min 3V (accession [id number]) XR hip LT min 2V (accession [id number]) XR knee LT 3V (accession [id number]) XR hip RT min 2V (accession [id number]) XR knee RT 3V (accession [id number]) XR ankle LT 2V (accession [id number]) XR foot LT 2V (accession [id number]) XR ankle RT 2V (accession [id number]) XR foot RT 2V (accession [id number]) CLINICAL INFORMATION: Cervicalgia Personal history of other diseases of the musculoskeletal system Pain in unspecified hand Unilateral primary osteoarthritis, left hip Pain in unspecified joint Pain in right hip Unspecified osteoarthritis, unspecified site Pain in unspecified foot COMPARISON: None. TECHNIQUE: AP, lateral and odontoid views of cervical spine, 4 images. PA, lateral and oblique views left wrist, 3 images. PA, lateral and oblique views left hand, 3 images. PA, lateral and oblique views right wrist, 3 images. PA, lateral and oblique views right hand, 3 images. AP and frog-leg lateral views of the left hip, 2 images. AP, lateral and sunrise views of the left knee, 3 images. AP and frog-leg lateral views of the right hip, 2 images. AP, lateral and sunrise views of the right knee, 3 images. AP and oblique views of the left ankle, 2 images. AP, lateral and oblique views of the left foot, 3 images. AP and oblique views of the right ankle, 2 images. AP, lateral and oblique views of the right foot, 3 images. FINDINGS: Cervical spine: Vertebral body heights are normal without evidence of fracture. Alignment is anatomic. No spondylolisthesis. Multilevel degenerative disc disease from C4 to C7 with loss of intervertebral disc height and marginal osteophytes. Facet joints are normal. Alignment is maintained at the atlanto-axial articulation. The prevertebral soft tissues are normal. Visualized lung apices are clear. Left carotid bifurcation calcifications noted. Left wrist: Intact dorsal distal radial plate and screw fixation hardware without evidence of loosening or failure. No acute fracture. Chronic styloid process fracture seen. Carpal rows are in anatomic alignment. There is joint space narrowing at the radiocarpal joint. Moderate first carpometacarpal joint arthrosis with joint cyst measuring and osteophytosis. Mild first metacarpophalangeal joint arthrosis with marginal osteophytes. No focal soft tissue sign. Left hand: No acute fracture. Osseous structures of the hand are in anatomic alignment joint space is maintained. Second distal interphalangeal joint arthrosis with marginal osteophytes and a well-corticated osseous body. No osseous erosions. No focal soft tissue swelling. No radiopaque foreign body. Right wrist: No acute fracture. The carpal rows are appropriately aligned. Mild to moderate radiocarpal arthrosis with joint space narrowing and subchondral sclerosis. Otherwise, joint spaces are maintained. Alignment is anatomic. No erosions or soft tissue calcifications. Right hand: A 0.2 cm linear radiopaque density overlies the finger tip pad of the fifth digit and a punctate radiopaque density overlies the finger tip at the thumb. No acute fracture. Mild to moderate first digit metacarpophalangeal joint arthrosis with osteophytosis. Osseous structures remain in anatomic alignment with joint spaces maintained. No osseous erosion or soft tissue calcification. Left hip: No acute fracture. The left femoral head is well-seated within the acetabulum. Mild arthrosis with subchondral sclerosis and osteophytosis. The visualized pelvic viscera is intact. No pubic symphysis diastasis. The visualized sacroiliac joints are well-maintained without erosions or surrounding sclerosis. Mild arterial calcifications noted. Left knee: Mild medial compartment arthrosis with joint space narrowing and marginal osteophytes. Chondrocalcinosis overlies the lateral greater than medial compartments. Enthesopathic changes off the inferior patella. No evidence of acute fracture. Alignment is anatomic. No significant effusion or soft tissue swelling. No radiopaque foreign body. Right hip: No acute fracture. The femoral head is well-seated within the acetabulum. Mild arthrosis with joint space narrowing, subchondral sclerosis and osteophytosis. Visualized pelvic rim is intact. Right knee: Chondrocalcinosis overlies the lateral and medial compartment. No evidence of acute fracture. Alignment is anatomic. No significant effusion or soft tissue swelling. Mild arterial calcifications noted. Left ankle: Alignment is anatomic. Ankle mortise is symmetric. No evidence of acute fracture. No significant focal soft tissue swelling or joint effusion. Left foot: Mild to moderate first metatarsophalangeal joint arthrosis with marginal osteophytes and subchondral cysts. Alignment is anatomic. No evidence of acute fracture. No erosions. No significant focal soft tissue swelling. Right ankle: Alignment is anatomic. Ankle mortise is symmetric. No evidence of acute fracture. No significant focal soft tissue swelling or joint effusion. Right foot: Mild first metatarsophalangeal joint arthrosis with marginal osteophytes. Alignment is anatomic. No evidence of acute fracture. No erosions. No significant focal soft tissue swelling. No radiopaque foreign body. XR/XR foot LT 2V IMPRESSION: 1. No acute fracture or malalignment of the cervical spine, left wrist, left hand, right wrist, right hand, left hip, left knee, right hip, right knee, left ankle, left foot, right knee or right foot. 2. Multilevel degenerative disc disease from C4 to C7. 3. Mild to moderate degenerative changes of the bilateral hands and wrists. 4. Mild degenerative changes of the bilateral hips and knees. 5. Chondrocalcinosis overlies the bilateral knees. Electronically signed by: Makayla Norton DO 12/23/2023 11:28 AM EDT
--- NOTE | ~2023-12-10 | XR_ITS ---
EXAMINATION: XR cervical spine 3V (accession [id number]) XR wrist LT min 3V (accession [id number]) XR hand LT min 3V (accession [id number]) XR wrist RT min 3V (accession [id number]) XR hand RT min 3V (accession [id number]) XR hip LT min 2V (accession [id number]) XR knee LT 3V (accession [id number]) XR hip RT min 2V (accession [id number]) XR knee RT 3V (accession [id number]) XR ankle LT 2V (accession [id number]) XR foot LT 2V (accession [id number]) XR ankle RT 2V (accession [id number]) XR foot RT 2V (accession [id number]) CLINICAL INFORMATION: Cervicalgia Personal history of other diseases of the musculoskeletal system Pain in unspecified hand Unilateral primary osteoarthritis, left hip Pain in unspecified joint Pain in right hip Unspecified osteoarthritis, unspecified site Pain in unspecified foot COMPARISON: None. TECHNIQUE: AP, lateral and odontoid views of cervical spine, 4 images. PA, lateral and oblique views left wrist, 3 images. PA, lateral and oblique views left hand, 3 images. PA, lateral and oblique views right wrist, 3 images. PA, lateral and oblique views right hand, 3 images. AP and frog-leg lateral views of the left hip, 2 images. AP, lateral and sunrise views of the left knee, 3 images. AP and frog-leg lateral views of the right hip, 2 images. AP, lateral and sunrise views of the right knee, 3 images. AP and oblique views of the left ankle, 2 images. AP, lateral and oblique views of the left foot, 3 images. AP and oblique views of the right ankle, 2 images. AP, lateral and oblique views of the right foot, 3 images. FINDINGS: Cervical spine: Vertebral body heights are normal without evidence of fracture. Alignment is anatomic. No spondylolisthesis. Multilevel degenerative disc disease from C4 to C7 with loss of intervertebral disc height and marginal osteophytes. Facet joints are normal. Alignment is maintained at the atlanto-axial articulation. The prevertebral soft tissues are normal. Visualized lung apices are clear. Left carotid bifurcation calcifications noted. Left wrist: Intact dorsal distal radial plate and screw fixation hardware without evidence of loosening or failure. No acute fracture. Chronic styloid process fracture seen. Carpal rows are in anatomic alignment. There is joint space narrowing at the radiocarpal joint. Moderate first carpometacarpal joint arthrosis with joint cyst measuring and osteophytosis. Mild first metacarpophalangeal joint arthrosis with marginal osteophytes. No focal soft tissue sign. Left hand: No acute fracture. Osseous structures of the hand are in anatomic alignment joint space is maintained. Second distal interphalangeal joint arthrosis with marginal osteophytes and a well-corticated osseous body. No osseous erosions. No focal soft tissue swelling. No radiopaque foreign body. Right wrist: No acute fracture. The carpal rows are appropriately aligned. Mild to moderate radiocarpal arthrosis with joint space narrowing and subchondral sclerosis. Otherwise, joint spaces are maintained. Alignment is anatomic. No erosions or soft tissue calcifications. Right hand: A 0.2 cm linear radiopaque density overlies the finger tip pad of the fifth digit and a punctate radiopaque density overlies the finger tip at the thumb. No acute fracture. Mild to moderate first digit metacarpophalangeal joint arthrosis with osteophytosis. Osseous structures remain in anatomic alignment with joint spaces maintained. No osseous erosion or soft tissue calcification. Left hip: No acute fracture. The left femoral head is well-seated within the acetabulum. Mild arthrosis with subchondral sclerosis and osteophytosis. The visualized pelvic viscera is intact. No pubic symphysis diastasis. The visualized sacroiliac joints are well-maintained without erosions or surrounding sclerosis. Mild arterial calcifications noted. Left knee: Mild medial compartment arthrosis with joint space narrowing and marginal osteophytes. Chondrocalcinosis overlies the lateral greater than medial compartments. Enthesopathic changes off the inferior patella. No evidence of acute fracture. Alignment is anatomic. No significant effusion or soft tissue swelling. No radiopaque foreign body. Right hip: No acute fracture. The femoral head is well-seated within the acetabulum. Mild arthrosis with joint space narrowing, subchondral sclerosis and osteophytosis. Visualized pelvic rim is intact. Right knee: Chondrocalcinosis overlies the lateral and medial compartment. No evidence of acute fracture. Alignment is anatomic. No significant effusion or soft tissue swelling. Mild arterial calcifications noted. Left ankle: Alignment is anatomic. Ankle mortise is symmetric. No evidence of acute fracture. No significant focal soft tissue swelling or joint effusion. Left foot: Mild to moderate first metatarsophalangeal joint arthrosis with marginal osteophytes and subchondral cysts. Alignment is anatomic. No evidence of acute fracture. No erosions. No significant focal soft tissue swelling. Right ankle: Alignment is anatomic. Ankle mortise is symmetric. No evidence of acute fracture. No significant focal soft tissue swelling or joint effusion. Right foot: Mild first metatarsophalangeal joint arthrosis with marginal osteophytes. Alignment is anatomic. No evidence of acute fracture. No erosions. No significant focal soft tissue swelling. No radiopaque foreign body. XR/XR wrist LT min 3V IMPRESSION: 1. No acute fracture or malalignment of the cervical spine, left wrist, left hand, right wrist, right hand, left hip, left knee, right hip, right knee, left ankle, left foot, right knee or right foot. 2. Multilevel degenerative disc disease from C4 to C7. 3. Mild to moderate degenerative changes of the bilateral hands and wrists. 4. Mild degenerative changes of the bilateral hips and knees. 5. Chondrocalcinosis overlies the bilateral knees. Electronically signed by: Makayla Norton DO 12/23/2023 11:28 AM EDT
--- NOTE | ~2023-12-10 | XR_ITS ---
EXAMINATION: XR cervical spine 3V (accession [id number]) XR wrist LT min 3V (accession [id number]) XR hand LT min 3V (accession [id number]) XR wrist RT min 3V (accession [id number]) XR hand RT min 3V (accession [id number]) XR hip LT min 2V (accession [id number]) XR knee LT 3V (accession [id number]) XR hip RT min 2V (accession [id number]) XR knee RT 3V (accession [id number]) XR ankle LT 2V (accession [id number]) XR foot LT 2V (accession [id number]) XR ankle RT 2V (accession [id number]) XR foot RT 2V (accession [id number]) CLINICAL INFORMATION: Cervicalgia Personal history of other diseases of the musculoskeletal system Pain in unspecified hand Unilateral primary osteoarthritis, left hip Pain in unspecified joint Pain in right hip Unspecified osteoarthritis, unspecified site Pain in unspecified foot COMPARISON: None. TECHNIQUE: AP, lateral and odontoid views of cervical spine, 4 images. PA, lateral and oblique views left wrist, 3 images. PA, lateral and oblique views left hand, 3 images. PA, lateral and oblique views right wrist, 3 images. PA, lateral and oblique views right hand, 3 images. AP and frog-leg lateral views of the left hip, 2 images. AP, lateral and sunrise views of the left knee, 3 images. AP and frog-leg lateral views of the right hip, 2 images. AP, lateral and sunrise views of the right knee, 3 images. AP and oblique views of the left ankle, 2 images. AP, lateral and oblique views of the left foot, 3 images. AP and oblique views of the right ankle, 2 images. AP, lateral and oblique views of the right foot, 3 images. FINDINGS: Cervical spine: Vertebral body heights are normal without evidence of fracture. Alignment is anatomic. No spondylolisthesis. Multilevel degenerative disc disease from C4 to C7 with loss of intervertebral disc height and marginal osteophytes. Facet joints are normal. Alignment is maintained at the atlanto-axial articulation. The prevertebral soft tissues are normal. Visualized lung apices are clear. Left carotid bifurcation calcifications noted. Left wrist: Intact dorsal distal radial plate and screw fixation hardware without evidence of loosening or failure. No acute fracture. Chronic styloid process fracture seen. Carpal rows are in anatomic alignment. There is joint space narrowing at the radiocarpal joint. Moderate first carpometacarpal joint arthrosis with joint cyst measuring and osteophytosis. Mild first metacarpophalangeal joint arthrosis with marginal osteophytes. No focal soft tissue sign. Left hand: No acute fracture. Osseous structures of the hand are in anatomic alignment joint space is maintained. Second distal interphalangeal joint arthrosis with marginal osteophytes and a well-corticated osseous body. No osseous erosions. No focal soft tissue swelling. No radiopaque foreign body. Right wrist: No acute fracture. The carpal rows are appropriately aligned. Mild to moderate radiocarpal arthrosis with joint space narrowing and subchondral sclerosis. Otherwise, joint spaces are maintained. Alignment is anatomic. No erosions or soft tissue calcifications. Right hand: A 0.2 cm linear radiopaque density overlies the finger tip pad of the fifth digit and a punctate radiopaque density overlies the finger tip at the thumb. No acute fracture. Mild to moderate first digit metacarpophalangeal joint arthrosis with osteophytosis. Osseous structures remain in anatomic alignment with joint spaces maintained. No osseous erosion or soft tissue calcification. Left hip: No acute fracture. The left femoral head is well-seated within the acetabulum. Mild arthrosis with subchondral sclerosis and osteophytosis. The visualized pelvic viscera is intact. No pubic symphysis diastasis. The visualized sacroiliac joints are well-maintained without erosions or surrounding sclerosis. Mild arterial calcifications noted. Left knee: Mild medial compartment arthrosis with joint space narrowing and marginal osteophytes. Chondrocalcinosis overlies the lateral greater than medial compartments. Enthesopathic changes off the inferior patella. No evidence of acute fracture. Alignment is anatomic. No significant effusion or soft tissue swelling. No radiopaque foreign body. Right hip: No acute fracture. The femoral head is well-seated within the acetabulum. Mild arthrosis with joint space narrowing, subchondral sclerosis and osteophytosis. Visualized pelvic rim is intact. Right knee: Chondrocalcinosis overlies the lateral and medial compartment. No evidence of acute fracture. Alignment is anatomic. No significant effusion or soft tissue swelling. Mild arterial calcifications noted. Left ankle: Alignment is anatomic. Ankle mortise is symmetric. No evidence of acute fracture. No significant focal soft tissue swelling or joint effusion. Left foot: Mild to moderate first metatarsophalangeal joint arthrosis with marginal osteophytes and subchondral cysts. Alignment is anatomic. No evidence of acute fracture. No erosions. No significant focal soft tissue swelling. Right ankle: Alignment is anatomic. Ankle mortise is symmetric. No evidence of acute fracture. No significant focal soft tissue swelling or joint effusion. Right foot: Mild first metatarsophalangeal joint arthrosis with marginal osteophytes. Alignment is anatomic. No evidence of acute fracture. No erosions. No significant focal soft tissue swelling. No radiopaque foreign body. XR/XR knee LT 3V IMPRESSION: 1. No acute fracture or malalignment of the cervical spine, left wrist, left hand, right wrist, right hand, left hip, left knee, right hip, right knee, left ankle, left foot, right knee or right foot. 2. Multilevel degenerative disc disease from C4 to C7. 3. Mild to moderate degenerative changes of the bilateral hands and wrists. 4. Mild degenerative changes of the bilateral hips and knees. 5. Chondrocalcinosis overlies the bilateral knees. Electronically signed by: Makayla Norton DO 12/23/2023 11:28 AM EDT
--- NOTE | ~2023-12-10 | XR_ITS ---
EXAMINATION: XR cervical spine 3V (accession [id number]) XR wrist LT min 3V (accession [id number]) XR hand LT min 3V (accession [id number]) XR wrist RT min 3V (accession [id number]) XR hand RT min 3V (accession [id number]) XR hip LT min 2V (accession [id number]) XR knee LT 3V (accession [id number]) XR hip RT min 2V (accession [id number]) XR knee RT 3V (accession [id number]) XR ankle LT 2V (accession [id number]) XR foot LT 2V (accession [id number]) XR ankle RT 2V (accession [id number]) XR foot RT 2V (accession [id number]) CLINICAL INFORMATION: Cervicalgia Personal history of other diseases of the musculoskeletal system Pain in unspecified hand Unilateral primary osteoarthritis, left hip Pain in unspecified joint Pain in right hip Unspecified osteoarthritis, unspecified site Pain in unspecified foot COMPARISON: None. TECHNIQUE: AP, lateral and odontoid views of cervical spine, 4 images. PA, lateral and oblique views left wrist, 3 images. PA, lateral and oblique views left hand, 3 images. PA, lateral and oblique views right wrist, 3 images. PA, lateral and oblique views right hand, 3 images. AP and frog-leg lateral views of the left hip, 2 images. AP, lateral and sunrise views of the left knee, 3 images. AP and frog-leg lateral views of the right hip, 2 images. AP, lateral and sunrise views of the right knee, 3 images. AP and oblique views of the left ankle, 2 images. AP, lateral and oblique views of the left foot, 3 images. AP and oblique views of the right ankle, 2 images. AP, lateral and oblique views of the right foot, 3 images. FINDINGS: Cervical spine: Vertebral body heights are normal without evidence of fracture. Alignment is anatomic. No spondylolisthesis. Multilevel degenerative disc disease from C4 to C7 with loss of intervertebral disc height and marginal osteophytes. Facet joints are normal. Alignment is maintained at the atlanto-axial articulation. The prevertebral soft tissues are normal. Visualized lung apices are clear. Left carotid bifurcation calcifications noted. Left wrist: Intact dorsal distal radial plate and screw fixation hardware without evidence of loosening or failure. No acute fracture. Chronic styloid process fracture seen. Carpal rows are in anatomic alignment. There is joint space narrowing at the radiocarpal joint. Moderate first carpometacarpal joint arthrosis with joint cyst measuring and osteophytosis. Mild first metacarpophalangeal joint arthrosis with marginal osteophytes. No focal soft tissue sign. Left hand: No acute fracture. Osseous structures of the hand are in anatomic alignment joint space is maintained. Second distal interphalangeal joint arthrosis with marginal osteophytes and a well-corticated osseous body. No osseous erosions. No focal soft tissue swelling. No radiopaque foreign body. Right wrist: No acute fracture. The carpal rows are appropriately aligned. Mild to moderate radiocarpal arthrosis with joint space narrowing and subchondral sclerosis. Otherwise, joint spaces are maintained. Alignment is anatomic. No erosions or soft tissue calcifications. Right hand: A 0.2 cm linear radiopaque density overlies the finger tip pad of the fifth digit and a punctate radiopaque density overlies the finger tip at the thumb. No acute fracture. Mild to moderate first digit metacarpophalangeal joint arthrosis with osteophytosis. Osseous structures remain in anatomic alignment with joint spaces maintained. No osseous erosion or soft tissue calcification. Left hip: No acute fracture. The left femoral head is well-seated within the acetabulum. Mild arthrosis with subchondral sclerosis and osteophytosis. The visualized pelvic viscera is intact. No pubic symphysis diastasis. The visualized sacroiliac joints are well-maintained without erosions or surrounding sclerosis. Mild arterial calcifications noted. Left knee: Mild medial compartment arthrosis with joint space narrowing and marginal osteophytes. Chondrocalcinosis overlies the lateral greater than medial compartments. Enthesopathic changes off the inferior patella. No evidence of acute fracture. Alignment is anatomic. No significant effusion or soft tissue swelling. No radiopaque foreign body. Right hip: No acute fracture. The femoral head is well-seated within the acetabulum. Mild arthrosis with joint space narrowing, subchondral sclerosis and osteophytosis. Visualized pelvic rim is intact. Right knee: Chondrocalcinosis overlies the lateral and medial compartment. No evidence of acute fracture. Alignment is anatomic. No significant effusion or soft tissue swelling. Mild arterial calcifications noted. Left ankle: Alignment is anatomic. Ankle mortise is symmetric. No evidence of acute fracture. No significant focal soft tissue swelling or joint effusion. Left foot: Mild to moderate first metatarsophalangeal joint arthrosis with marginal osteophytes and subchondral cysts. Alignment is anatomic. No evidence of acute fracture. No erosions. No significant focal soft tissue swelling. Right ankle: Alignment is anatomic. Ankle mortise is symmetric. No evidence of acute fracture. No significant focal soft tissue swelling or joint effusion. Right foot: Mild first metatarsophalangeal joint arthrosis with marginal osteophytes. Alignment is anatomic. No evidence of acute fracture. No erosions. No significant focal soft tissue swelling. No radiopaque foreign body. XR/XR knee RT 3V IMPRESSION: 1. No acute fracture or malalignment of the cervical spine, left wrist, left hand, right wrist, right hand, left hip, left knee, right hip, right knee, left ankle, left foot, right knee or right foot. 2. Multilevel degenerative disc disease from C4 to C7. 3. Mild to moderate degenerative changes of the bilateral hands and wrists. 4. Mild degenerative changes of the bilateral hips and knees. 5. Chondrocalcinosis overlies the bilateral knees. Electronically signed by: Makayla Norton DO 12/23/2023 11:28 AM EDT
--- NOTE | ~2023-12-10 | XR_ITS ---
EXAMINATION: XR cervical spine 3V (accession [id number]) XR wrist LT min 3V (accession [id number]) XR hand LT min 3V (accession [id number]) XR wrist RT min 3V (accession [id number]) XR hand RT min 3V (accession [id number]) XR hip LT min 2V (accession [id number]) XR knee LT 3V (accession [id number]) XR hip RT min 2V (accession [id number]) XR knee RT 3V (accession [id number]) XR ankle LT 2V (accession [id number]) XR foot LT 2V (accession [id number]) XR ankle RT 2V (accession [id number]) XR foot RT 2V (accession [id number]) CLINICAL INFORMATION: Cervicalgia Personal history of other diseases of the musculoskeletal system Pain in unspecified hand Unilateral primary osteoarthritis, left hip Pain in unspecified joint Pain in right hip Unspecified osteoarthritis, unspecified site Pain in unspecified foot COMPARISON: None. TECHNIQUE: AP, lateral and odontoid views of cervical spine, 4 images. PA, lateral and oblique views left wrist, 3 images. PA, lateral and oblique views left hand, 3 images. PA, lateral and oblique views right wrist, 3 images. PA, lateral and oblique views right hand, 3 images. AP and frog-leg lateral views of the left hip, 2 images. AP, lateral and sunrise views of the left knee, 3 images. AP and frog-leg lateral views of the right hip, 2 images. AP, lateral and sunrise views of the right knee, 3 images. AP and oblique views of the left ankle, 2 images. AP, lateral and oblique views of the left foot, 3 images. AP and oblique views of the right ankle, 2 images. AP, lateral and oblique views of the right foot, 3 images. FINDINGS: Cervical spine: Vertebral body heights are normal without evidence of fracture. Alignment is anatomic. No spondylolisthesis. Multilevel degenerative disc disease from C4 to C7 with loss of intervertebral disc height and marginal osteophytes. Facet joints are normal. Alignment is maintained at the atlanto-axial articulation. The prevertebral soft tissues are normal. Visualized lung apices are clear. Left carotid bifurcation calcifications noted. Left wrist: Intact dorsal distal radial plate and screw fixation hardware without evidence of loosening or failure. No acute fracture. Chronic styloid process fracture seen. Carpal rows are in anatomic alignment. There is joint space narrowing at the radiocarpal joint. Moderate first carpometacarpal joint arthrosis with joint cyst measuring and osteophytosis. Mild first metacarpophalangeal joint arthrosis with marginal osteophytes. No focal soft tissue sign. Left hand: No acute fracture. Osseous structures of the hand are in anatomic alignment joint space is maintained. Second distal interphalangeal joint arthrosis with marginal osteophytes and a well-corticated osseous body. No osseous erosions. No focal soft tissue swelling. No radiopaque foreign body. Right wrist: No acute fracture. The carpal rows are appropriately aligned. Mild to moderate radiocarpal arthrosis with joint space narrowing and subchondral sclerosis. Otherwise, joint spaces are maintained. Alignment is anatomic. No erosions or soft tissue calcifications. Right hand: A 0.2 cm linear radiopaque density overlies the finger tip pad of the fifth digit and a punctate radiopaque density overlies the finger tip at the thumb. No acute fracture. Mild to moderate first digit metacarpophalangeal joint arthrosis with osteophytosis. Osseous structures remain in anatomic alignment with joint spaces maintained. No osseous erosion or soft tissue calcification. Left hip: No acute fracture. The left femoral head is well-seated within the acetabulum. Mild arthrosis with subchondral sclerosis and osteophytosis. The visualized pelvic viscera is intact. No pubic symphysis diastasis. The visualized sacroiliac joints are well-maintained without erosions or surrounding sclerosis. Mild arterial calcifications noted. Left knee: Mild medial compartment arthrosis with joint space narrowing and marginal osteophytes. Chondrocalcinosis overlies the lateral greater than medial compartments. Enthesopathic changes off the inferior patella. No evidence of acute fracture. Alignment is anatomic. No significant effusion or soft tissue swelling. No radiopaque foreign body. Right hip: No acute fracture. The femoral head is well-seated within the acetabulum. Mild arthrosis with joint space narrowing, subchondral sclerosis and osteophytosis. Visualized pelvic rim is intact. Right knee: Chondrocalcinosis overlies the lateral and medial compartment. No evidence of acute fracture. Alignment is anatomic. No significant effusion or soft tissue swelling. Mild arterial calcifications noted. Left ankle: Alignment is anatomic. Ankle mortise is symmetric. No evidence of acute fracture. No significant focal soft tissue swelling or joint effusion. Left foot: Mild to moderate first metatarsophalangeal joint arthrosis with marginal osteophytes and subchondral cysts. Alignment is anatomic. No evidence of acute fracture. No erosions. No significant focal soft tissue swelling. Right ankle: Alignment is anatomic. Ankle mortise is symmetric. No evidence of acute fracture. No significant focal soft tissue swelling or joint effusion. Right foot: Mild first metatarsophalangeal joint arthrosis with marginal osteophytes. Alignment is anatomic. No evidence of acute fracture. No erosions. No significant focal soft tissue swelling. No radiopaque foreign body. XR/XR wrist RT min 3V IMPRESSION: 1. No acute fracture or malalignment of the cervical spine, left wrist, left hand, right wrist, right hand, left hip, left knee, right hip, right knee, left ankle, left foot, right knee or right foot. 2. Multilevel degenerative disc disease from C4 to C7. 3. Mild to moderate degenerative changes of the bilateral hands and wrists. 4. Mild degenerative changes of the bilateral hips and knees. 5. Chondrocalcinosis overlies the bilateral knees. Electronically signed by: Makayla Norton DO 12/23/2023 11:28 AM EDT
--- NOTE | ~2023-12-10 | XR_ITS ---
EXAMINATION: XR cervical spine 3V (accession [id number]) XR wrist LT min 3V (accession [id number]) XR hand LT min 3V (accession [id number]) XR wrist RT min 3V (accession [id number]) XR hand RT min 3V (accession [id number]) XR hip LT min 2V (accession [id number]) XR knee LT 3V (accession [id number]) XR hip RT min 2V (accession [id number]) XR knee RT 3V (accession [id number]) XR ankle LT 2V (accession [id number]) XR foot LT 2V (accession [id number]) XR ankle RT 2V (accession [id number]) XR foot RT 2V (accession [id number]) CLINICAL INFORMATION: Cervicalgia Personal history of other diseases of the musculoskeletal system Pain in unspecified hand Unilateral primary osteoarthritis, left hip Pain in unspecified joint Pain in right hip Unspecified osteoarthritis, unspecified site Pain in unspecified foot COMPARISON: None. TECHNIQUE: AP, lateral and odontoid views of cervical spine, 4 images. PA, lateral and oblique views left wrist, 3 images. PA, lateral and oblique views left hand, 3 images. PA, lateral and oblique views right wrist, 3 images. PA, lateral and oblique views right hand, 3 images. AP and frog-leg lateral views of the left hip, 2 images. AP, lateral and sunrise views of the left knee, 3 images. AP and frog-leg lateral views of the right hip, 2 images. AP, lateral and sunrise views of the right knee, 3 images. AP and oblique views of the left ankle, 2 images. AP, lateral and oblique views of the left foot, 3 images. AP and oblique views of the right ankle, 2 images. AP, lateral and oblique views of the right foot, 3 images. FINDINGS: Cervical spine: Vertebral body heights are normal without evidence of fracture. Alignment is anatomic. No spondylolisthesis. Multilevel degenerative disc disease from C4 to C7 with loss of intervertebral disc height and marginal osteophytes. Facet joints are normal. Alignment is maintained at the atlanto-axial articulation. The prevertebral soft tissues are normal. Visualized lung apices are clear. Left carotid bifurcation calcifications noted. Left wrist: Intact dorsal distal radial plate and screw fixation hardware without evidence of loosening or failure. No acute fracture. Chronic styloid process fracture seen. Carpal rows are in anatomic alignment. There is joint space narrowing at the radiocarpal joint. Moderate first carpometacarpal joint arthrosis with joint cyst measuring and osteophytosis. Mild first metacarpophalangeal joint arthrosis with marginal osteophytes. No focal soft tissue sign. Left hand: No acute fracture. Osseous structures of the hand are in anatomic alignment joint space is maintained. Second distal interphalangeal joint arthrosis with marginal osteophytes and a well-corticated osseous body. No osseous erosions. No focal soft tissue swelling. No radiopaque foreign body. Right wrist: No acute fracture. The carpal rows are appropriately aligned. Mild to moderate radiocarpal arthrosis with joint space narrowing and subchondral sclerosis. Otherwise, joint spaces are maintained. Alignment is anatomic. No erosions or soft tissue calcifications. Right hand: A 0.2 cm linear radiopaque density overlies the finger tip pad of the fifth digit and a punctate radiopaque density overlies the finger tip at the thumb. No acute fracture. Mild to moderate first digit metacarpophalangeal joint arthrosis with osteophytosis. Osseous structures remain in anatomic alignment with joint spaces maintained. No osseous erosion or soft tissue calcification. Left hip: No acute fracture. The left femoral head is well-seated within the acetabulum. Mild arthrosis with subchondral sclerosis and osteophytosis. The visualized pelvic viscera is intact. No pubic symphysis diastasis. The visualized sacroiliac joints are well-maintained without erosions or surrounding sclerosis. Mild arterial calcifications noted. Left knee: Mild medial compartment arthrosis with joint space narrowing and marginal osteophytes. Chondrocalcinosis overlies the lateral greater than medial compartments. Enthesopathic changes off the inferior patella. No evidence of acute fracture. Alignment is anatomic. No significant effusion or soft tissue swelling. No radiopaque foreign body. Right hip: No acute fracture. The femoral head is well-seated within the acetabulum. Mild arthrosis with joint space narrowing, subchondral sclerosis and osteophytosis. Visualized pelvic rim is intact. Right knee: Chondrocalcinosis overlies the lateral and medial compartment. No evidence of acute fracture. Alignment is anatomic. No significant effusion or soft tissue swelling. Mild arterial calcifications noted. Left ankle: Alignment is anatomic. Ankle mortise is symmetric. No evidence of acute fracture. No significant focal soft tissue swelling or joint effusion. Left foot: Mild to moderate first metatarsophalangeal joint arthrosis with marginal osteophytes and subchondral cysts. Alignment is anatomic. No evidence of acute fracture. No erosions. No significant focal soft tissue swelling. Right ankle: Alignment is anatomic. Ankle mortise is symmetric. No evidence of acute fracture. No significant focal soft tissue swelling or joint effusion. Right foot: Mild first metatarsophalangeal joint arthrosis with marginal osteophytes. Alignment is anatomic. No evidence of acute fracture. No erosions. No significant focal soft tissue swelling. No radiopaque foreign body. XR/XR hip RT min 2V IMPRESSION: 1. No acute fracture or malalignment of the cervical spine, left wrist, left hand, right wrist, right hand, left hip, left knee, right hip, right knee, left ankle, left foot, right knee or right foot. 2. Multilevel degenerative disc disease from C4 to C7. 3. Mild to moderate degenerative changes of the bilateral hands and wrists. 4. Mild degenerative changes of the bilateral hips and knees. 5. Chondrocalcinosis overlies the bilateral knees. Electronically signed by: Makayla Norton DO 12/23/2023 11:28 AM EDT
--- NOTE | ~2023-12-10 | XR_ITS ---
EXAMINATION: XR cervical spine 3V (accession [id number]) XR wrist LT min 3V (accession [id number]) XR hand LT min 3V (accession [id number]) XR wrist RT min 3V (accession [id number]) XR hand RT min 3V (accession [id number]) XR hip LT min 2V (accession [id number]) XR knee LT 3V (accession [id number]) XR hip RT min 2V (accession [id number]) XR knee RT 3V (accession [id number]) XR ankle LT 2V (accession [id number]) XR foot LT 2V (accession [id number]) XR ankle RT 2V (accession [id number]) XR foot RT 2V (accession [id number]) CLINICAL INFORMATION: Cervicalgia Personal history of other diseases of the musculoskeletal system Pain in unspecified hand Unilateral primary osteoarthritis, left hip Pain in unspecified joint Pain in right hip Unspecified osteoarthritis, unspecified site Pain in unspecified foot COMPARISON: None. TECHNIQUE: AP, lateral and odontoid views of cervical spine, 4 images. PA, lateral and oblique views left wrist, 3 images. PA, lateral and oblique views left hand, 3 images. PA, lateral and oblique views right wrist, 3 images. PA, lateral and oblique views right hand, 3 images. AP and frog-leg lateral views of the left hip, 2 images. AP, lateral and sunrise views of the left knee, 3 images. AP and frog-leg lateral views of the right hip, 2 images. AP, lateral and sunrise views of the right knee, 3 images. AP and oblique views of the left ankle, 2 images. AP, lateral and oblique views of the left foot, 3 images. AP and oblique views of the right ankle, 2 images. AP, lateral and oblique views of the right foot, 3 images. FINDINGS: Cervical spine: Vertebral body heights are normal without evidence of fracture. Alignment is anatomic. No spondylolisthesis. Multilevel degenerative disc disease from C4 to C7 with loss of intervertebral disc height and marginal osteophytes. Facet joints are normal. Alignment is maintained at the atlanto-axial articulation. The prevertebral soft tissues are normal. Visualized lung apices are clear. Left carotid bifurcation calcifications noted. Left wrist: Intact dorsal distal radial plate and screw fixation hardware without evidence of loosening or failure. No acute fracture. Chronic styloid process fracture seen. Carpal rows are in anatomic alignment. There is joint space narrowing at the radiocarpal joint. Moderate first carpometacarpal joint arthrosis with joint cyst measuring and osteophytosis. Mild first metacarpophalangeal joint arthrosis with marginal osteophytes. No focal soft tissue sign. Left hand: No acute fracture. Osseous structures of the hand are in anatomic alignment joint space is maintained. Second distal interphalangeal joint arthrosis with marginal osteophytes and a well-corticated osseous body. No osseous erosions. No focal soft tissue swelling. No radiopaque foreign body. Right wrist: No acute fracture. The carpal rows are appropriately aligned. Mild to moderate radiocarpal arthrosis with joint space narrowing and subchondral sclerosis. Otherwise, joint spaces are maintained. Alignment is anatomic. No erosions or soft tissue calcifications. Right hand: A 0.2 cm linear radiopaque density overlies the finger tip pad of the fifth digit and a punctate radiopaque density overlies the finger tip at the thumb. No acute fracture. Mild to moderate first digit metacarpophalangeal joint arthrosis with osteophytosis. Osseous structures remain in anatomic alignment with joint spaces maintained. No osseous erosion or soft tissue calcification. Left hip: No acute fracture. The left femoral head is well-seated within the acetabulum. Mild arthrosis with subchondral sclerosis and osteophytosis. The visualized pelvic viscera is intact. No pubic symphysis diastasis. The visualized sacroiliac joints are well-maintained without erosions or surrounding sclerosis. Mild arterial calcifications noted. Left knee: Mild medial compartment arthrosis with joint space narrowing and marginal osteophytes. Chondrocalcinosis overlies the lateral greater than medial compartments. Enthesopathic changes off the inferior patella. No evidence of acute fracture. Alignment is anatomic. No significant effusion or soft tissue swelling. No radiopaque foreign body. Right hip: No acute fracture. The femoral head is well-seated within the acetabulum. Mild arthrosis with joint space narrowing, subchondral sclerosis and osteophytosis. Visualized pelvic rim is intact. Right knee: Chondrocalcinosis overlies the lateral and medial compartment. No evidence of acute fracture. Alignment is anatomic. No significant effusion or soft tissue swelling. Mild arterial calcifications noted. Left ankle: Alignment is anatomic. Ankle mortise is symmetric. No evidence of acute fracture. No significant focal soft tissue swelling or joint effusion. Left foot: Mild to moderate first metatarsophalangeal joint arthrosis with marginal osteophytes and subchondral cysts. Alignment is anatomic. No evidence of acute fracture. No erosions. No significant focal soft tissue swelling. Right ankle: Alignment is anatomic. Ankle mortise is symmetric. No evidence of acute fracture. No significant focal soft tissue swelling or joint effusion. Right foot: Mild first metatarsophalangeal joint arthrosis with marginal osteophytes. Alignment is anatomic. No evidence of acute fracture. No erosions. No significant focal soft tissue swelling. No radiopaque foreign body. XR/XR ankle LT 2V IMPRESSION: 1. No acute fracture or malalignment of the cervical spine, left wrist, left hand, right wrist, right hand, left hip, left knee, right hip, right knee, left ankle, left foot, right knee or right foot. 2. Multilevel degenerative disc disease from C4 to C7. 3. Mild to moderate degenerative changes of the bilateral hands and wrists. 4. Mild degenerative changes of the bilateral hips and knees. 5. Chondrocalcinosis overlies the bilateral knees. Electronically signed by: Makayla Norton DO 12/23/2023 11:28 AM EDT
== END 2023-12-10 09:53 | disposition home or self-care (01) ==
LOC: HO.HOSX 09:52
PROVIDERS: PCP Internal Medicine; Visit Provider Physical Medicine & Rehabilitation
DX: M19.90 Unspecified osteoarthritis, unspecified site (principal); R76.8 Other specified abnormal immunological findings in serum; M54.2 Cervicalgia; M79.643 Pain in unspecified hand; M16.12 Unilateral primary osteoarthritis, left hip; M25.50 Pain in unspecified joint; M25.551 Pain in right hip; Z87.39 Personal history of other diseases of the musculoskeletal system and connective tissue
CPT/HCPCS: 72040; 73110; 73130; 73502; 73562; 73600; 73620; 99202

== ENCOUNTER 2023-12-10 09:52 | Outpatient (AMB) | payer MEDICARE, SELFPAY ==
--- NOTE | 2023-12-10 09:54 | A.OFFVIS_ITS ---
Intake Visit Reasons: [employer]ER-Neck pain extended down body/weakness Intake Note: Leno is a 68 year old male who presents today as a new patient referred by Cosme Astorga MD for unspecified osteoarthritis. Patient reports he has been having neck pain that radiates all over his body. Pt states he has bouts of muscle tightness and stiffness. Pt states this started about 1 month ago with no know injury. Pt denies any previous surgeries or injections in his back/neck. Pt states he believes this is more autoimmune. Allergies No Known Allergies Allergy (Verified 12/10/23 09:55) Medication List - Last Reconciled 12/10/23 by Shraddha Hernandez MD aspirin (Adult Low Dose Aspirin) 81 mg PO DAILY naproxen 500 mg PO BID [id number] 3.5-10,000-1 mg/mL-unit/mL-% otic (ears) rosuvastatin 40 mg PO tadalafil 5 mg PO DAILY 90 days terazosin 10 mg PO BEDTIME 90 days HPI Comments Details: He says he's had aches/pains diffusely. Morning stiffness. Pain on arms, difficulty raising. Muscle tensions both upper and lower body. When he gets up from bed, he feels legs are weak. Symptoms started gradually, on/off since June, and worse in the last month. He talks about wrist and hand swelling. He also had issues with ear infection. Had labs done at [facility] - positive TERI as of 11/09/23. ESR 17 in October. Lyme test negative. Taking Naproxen 500mg BID. Scheduled to see Rheumatology in January 2024; Dr. Abarca. In 2009, diagnosed PMR and thought to have RA, he was negative RF, treated with MTX and prednisone. In 2011, he had a wrist injury needing surgery, had to come off those medications, and never went back. He felt better despite without the medications/treatment for RA. Symptoms only started this year. Was seen by a Dr. Valencia 5 years ago, had xrays done, told to have osteoarthritis rather than RA. Torn RTC, right, treated nonsurgically, but improved with PT and ROM is full. Right hand swollen. Knee swells up from time to time. Neck stiffness. Denies low back pain. Bilateral hip pain but no groin pain. Left ankle swells from time to time. Numbness in both hands. He used to be active, gardening, but unable now. Family history - no rheumatologic or neuropathy PMHX - prediabetis, diet controlled; BPH PFSH Medical History BPH (benign prostatic hyperplasia) Enlarged prostate Hyperlipidemia Osteoarthritis of both hands Prostatism Surgical History History of carpal tunnel surgery Review of Systems Const All systems reviewed & are unremarkable except as noted in HPI and below Physical Exam Constitutional: Patient appears to be in no acute distress, well nourished and well developed. Patient was appropriately conversant and oriented. Good historian. MSK: Inspection reveals appropriate head and neck positioning. No pain with palpation over the neck musculature. Cervical ROM was full. Spurling's sign negative. Bilateral shoulder, elbow and wrist ROM WNL. No ligamentous laxity or crepitance. Right hand is swollen, sausage fingers. Limited lift builder whole strength. Ankles and knee nontender to touch. No swelling. Neurological: Neurologic examination of the upper and lower extremities was nonfocal with intact sensation, muscle stretch reflexes and without focal motor deficits . Brown?s negative bilaterally. Babinski was down going bilaterally. Clonus was negative. Gait is antalgic with poor balance. Results Reviewed Results Reviewed: I reviewed records from the following: Labs from [facility], positive TERI, normal CBC Notes from Urology Assessment & Plan Assessment & Plan (1) Arthritis: Code(s): M19.90 - Unspecified osteoarthritis, unspecified site Category: Medical (2) Positive TERI (antinuclear antibody): Code(s): R76.8 - Other specified abnormal immunological findings in serum Category: Medical (3) History of rheumatoid arthritis: Code(s): Z87.39 - Personal history of other diseases of the musculoskeletal system and connective tissue Category: Medical Plan Previously diagnosed rheumatoid arthritis in 2009, did well under methotrexate and prednisone. He has not been on medications since 2011. Last seen by wedding consultant at [facility] in 2020, told that he does not have rheumatoid arthritis but just osteoarthritis. He was active and doing well up until last spring. Complaining of morning stiffness and multiple joint pain and swelling. Wonder if he does have a rheumatologic or immunologic diagnosis. Most recent TERI positive. Patient already has appointment with Dr. Abarca in [place] in January but he prefers to stay in [place]. Referring him to our wedding consultant Dr. Mccabe. Communicated with Dr. Mccabe for recommendation of blood work to be done prior to that consult. We're doing x-rays for bilateral hands, bilateral wrists, bilateral knees, bilateral hips, bilateral ankles/feet, cervical spine. Sending for blood work ESR, CRP, CMP, CBC. Ordering EMG bilateral upper extremities. Telehealth appointment to discuss results. Await appointment with Rheumatology. Assessment and plan discussed with patient, and patient was agreeable. All questions were answered thoroughly. Shraddha Hernandez MD, RAMÍREZ Board Certified, [place] [employer] and Rehabilitation (ABPMR) Board Certified, [place] Board [employer] Electrodiagnostic [employer] (ABEM) Orders: Orders XR hand RT min 3V Today M19.90 - Unspecified osteoarthritis, unspecified site, M79.643 - Pain in unspecified hand, R76.8 - Other specified abnormal immunological findings in serum, Z87.39 - Personal history of other diseases of the musculoskeletal system and connective tissue XR knee RT 3V Today M19.90 - Unspecified osteoarthritis, unspecified site, R76.8 - Other specified abnormal immunological findings in serum, Z87.39 - Personal history of other diseases of the musculoskeletal system and connective tissue XR hip LT min 2V Today M16.12 - Unilateral primary osteoarthritis, left hip, M19.90 - Unspecified osteoarthritis, unspecified site, R76.8 - Other specified abnormal immunological findings in serum, Z87.39 - Personal history of other diseases of the musculoskeletal system and connective tissue XR ankle LT 2V Today M19.90 - Unspecified osteoarthritis, unspecified site, R76.8 - Other specified abnormal immunological findings in serum, Z87.39 - Personal history of other diseases of the musculoskeletal system and connective tissue XR foot LT 2V Today M19.90 - Unspecified osteoarthritis, unspecified site, R76.8 - Other specified abnormal immunological findings in serum, Z87.39 - Personal history of other diseases of the musculoskeletal system and connective tissue XR cervical spine 3V Today M19.90 - Unspecified osteoarthritis, unspecified site, M54.2 - Cervicalgia, R76.8 - Other specified abnormal immunological findings in serum, Z87.39 - Personal history of other diseases of the musculoskeletal system and connective tissue XR hand LT min 3V Today M19.90 - Unspecified osteoarthritis, unspecified site, M79.643 - Pain in unspecified hand, R76.8 - Other specified abnormal immunological findings in serum, Z87.39 - Personal history of other diseases of the musculoskeletal system and connective tissue XR hips TEMO min 3V Today M19.90 - Unspecified osteoarthritis, unspecified site, M25.559 - Pain in unspecified hip, R76.8 - Other specified abnormal immunological findings in serum, Z87.39 - Personal history of other diseases of the musculoskeletal system and connective tissue XR knee LT 3V Today M19.90 - Unspecified osteoarthritis, unspecified site, M25.50 - Pain in unspecified joint, R76.8 - Other specified abnormal immunological findings in serum, Z87.39 - Personal history of other diseases of the musculoskeletal system and connective tissue XR hip RT min 2V Today M19.90 - Unspecified osteoarthritis, unspecified site, M25.551 - Pain in right hip, R76.8 - Other specified abnormal immunological findings in serum, Z87.39 - Personal history of other diseases of the musculoskeletal system and connective tissue XR ankle RT 2V Today M19.90 - Unspecified osteoarthritis, unspecified site, R76.8 - Other specified abnormal immunological findings in serum, Z87.39 - Personal history of other diseases of the musculoskeletal system and connective tissue XR foot RT 2V Today M19.90 - Unspecified osteoarthritis, unspecified site, M79.673 - Pain in unspecified foot, R76.8 - Other specified abnormal immunological findings in serum, Z87.39 - Personal history of other diseases of the musculoskeletal system and connective tissue XR wrist LT min 3V Today M19.90 - Unspecified osteoarthritis, unspecified site, R76.8 - Other specified abnormal immunological findings in serum, Z87.39 - Personal history of other diseases of the musculoskeletal system and connective tissue XR wrist RT min 3V Today M19.90 - Unspecified osteoarthritis, unspecified site, R76.8 - Other specified abnormal immunological findings in serum, Z87.39 - Personal history of other diseases of the musculoskeletal system and connective tissue CRP High Sensitivity Today M19.90 - Unspecified osteoarthritis, unspecified site, R76.8 - Other specified abnormal immunological findings in serum, Z87.39 - Personal history of other diseases of the musculoskeletal system and connective tissue Erythrocyte Sedimentation Rate Today - Unspecified osteoarthritis, unspecified site, R76.8 - Other specified abnormal immunological findings in serum, Z87.39 - Personal history of other diseases of the musculoskeletal system and connective tissue Complete Blood Count Auto Diff Today - Unspecified osteoarthritis, unspecified site, R76.8 - Other specified abnormal immunological findings in serum, Z87.39 - Personal history of other diseases of the musculoskeletal system and connective tissue Comprehensive Met. Panel Today - Unspecified osteoarthritis, unspecified site, R76.8 - Other specified abnormal immunological findings in serum, Z87.39 - Personal history of other diseases of the musculoskeletal system and connective tissue NE electromyogram (EMG) Today M79.643 - Pain in unspecified hand NE nerve conduction velocity Today M79.643 - Pain in unspecified hand Referrals Pain Management Referral - Unspecified osteoarthritis, unspecified site, R76.8 - Other specified abnormal immunological findings in serum, Z87.39 - Personal history of other diseases of the musculoskeletal system and connective tissue Coding Level of Care Code New Pt Level 4 (29415) Diagnoses Arthritis Positive TERI (antinuclear antibody) R76.8 History of rheumatoid arthritis Z87.39
== END 2023-12-10 11:27 | disposition home or self-care (01) ==
PROVIDERS: PCP Internal Medicine; Visit Provider Physical Medicine & Rehabilitation
DX: M19.91 Primary osteoarthritis, unspecified site (principal); R76.8 Other specified abnormal immunological findings in serum; Z87.39 Personal history of other diseases of the musculoskeletal system and connective tissue
CPT/HCPCS: 99204

== ENCOUNTER 2023-12-10 11:37 | Outpatient (REF) | payer MEDICARE, SELFPAY ==
[2023-12-10 13:22] LABS: MANUAL DIFF FLAG NO
[2023-12-10 13:39] LABS: Basophils Absolute Auto 0.1 X10*3/uL (0.0-0.2); Basophils Percent Auto 0.8 % (0-2); Eosinophils Absolute Auto 0.1 X10*3/uL (0.0-0.4); Eosinophils Percent Auto 0.9 % (0-4); Hematocrit 39.2 % (42.0-52.0); Imm Gran Abs Auto 0.03 X10*3/uL (0.00-0.03); Imm Gran Pct Auto 0.3 % (0.0-0.4); Lymphocytes Absolute Auto 1.6 X10*3/uL (1.2-4.9); Lymphocytes Percent Auto 18.3 % (20-40); Mean Corpuscular HGB Conc 33.2 g/dl (31.0-36.0); Mean Corpuscular Hemoglobin 28.8 pg (27.0-33.0); Mean Corpuscular Volume 86.7 fL (80.0-98.0); Mean Platelet Volume 10.2 fL (9.4-12.4); Monocytes Absolute Auto 0.7 X10*3/uL (0.1-1.2); Monocytes Percent Auto 8.5 % (2-11); Neutrophils Absolute Auto 6.1 x10*3/uL (2.0-8.3); Neutrophils Percent Auto 71.2 % (45-73); Platelet Count 294 X10*3/uL (160-400); Red Blood Count 4.52 X10*6/uL (4.60-5.80); White Blood Count 8.6 X10*3/uL (4.8-10.8)
[2023-12-10 14:11] LABS: Alanine Aminotransferase 16 U/L (0-40); Albumin Level 3.9 g/dL (3.5-5.0); Alkaline Phosphatase 63 U/L (39-117); Anion Gap 11 (12-20); Aspartate Amino Transferase 17 U/L (5-37); Bilirubin Total 0.3 mg/dL (0.0-1.0); Blood Urea Nitrogen 12 mg/dL (9-16); Calcium 9.7 mg/dL (8.4-10.2); Carbon Dioxide 25 mmol/L (22-29); Chloride 106 mmol/L (96-108); Estimated Glomerular Filt Rate > 60; Glucose Random 117 mg/dL (60-115); Potassium 4.1 mmol/L (3.3-5.1); Sodium 138 mmol/L (135-145); Total Protein 7.1 g/dL (6.5-8.0)
[2023-12-10 14:16] LABS: Erythrocyte Sedimentation Rate 28 MM/HR (0-15)
[2023-12-13 07:34] LABS: CRP High Sensitivity >20.0 mg/L
== END 2023-12-10 11:38 | disposition home or self-care (01) ==
LOC: HO.10HDL 11:37
PROVIDERS: Visit Provider Physical Medicine & Rehabilitation
DX: R76.8 Other specified abnormal immunological findings in serum (principal); M19.90 Unspecified osteoarthritis, unspecified site; Z87.39 Personal history of other diseases of the musculoskeletal system and connective tissue
CPT/HCPCS: 36415; 80053; 85025; 85652; 86141

== ENCOUNTER 2023-12-17 16:03 | Outpatient (REF) | payer MEDICARE, SELFPAY | END 2023-12-17 16:04 | disposition home or self-care (01) | LOC: HO.HOSX 16:03 | PROVIDERS: Visit Provider Physical Medicine & Rehabilitation | DX: Z13.89 Encounter for screening for other disorder (principal) ==

== ENCOUNTER 2023-12-31 10:00 | Outpatient (AMB) | payer MEDICARE, SELFPAY ==
--- OUTSIDE RECORDS SUMMARY | 2023-12-31 10:01 | XMS_ITS | Continuity of Care Document ---
Author Organization [facility] Address [address] [place] [address]- Care Team Providers Care Marine Specialist Name Role Phone Berkley SMALL, Kacie Primary Care Physician Encounter [facility] [id number] Date(s): 05/02/21 - 06/01/21 [facility] [address], [place] [address] Attending Physician: Eugenia Kay Admitting Physician: Eugenia Kay Referring Physician: Admtr, Ar8 Allergies, Adverse Reactions, Alerts No Known Allergies
--- OUTSIDE RECORDS SUMMARY | 2023-12-31 10:01 | XMS_ITS | Continuity of Care Document ---
Author Organization [facility] Address [address] [place] [address]- Care Team Providers Care Sign Fabricator Name Role Phone Kacie Gooden MD Primary Care Physician Encounter [facility] Date(s): 06/09/21 - 07/09/21 [facility] [address] [place] [address]- Attending Physician: Eugenia Kay Admitting Physician: Eugenia Kay Referring Physician: Eugenia Kay Allergies, Adverse Reactions, Alerts No Known Allergies
--- OUTSIDE RECORDS SUMMARY | 2023-12-31 10:01 | XMS_ITS | Continuity of Care Document ---
Author Organization [facility] Address [address] [place] [address]- Care Team Providers Care Oral Therapist Name Role Phone Berkley SMALL, Kacie Primary Care Physician Encounter [facility] Date(s): 04/08/21 - 07/09/21 [facility] [address] [place] [address]- Attending Physician: Mark Freeman MD Admitting Physician: Mark Freeman MD Referring Physician: Kacie Gooden MD Allergies, Adverse Reactions, Alerts No Known Allergies
--- OUTSIDE RECORDS SUMMARY | 2023-12-31 10:01 | XMS_ITS | Continuity of Care Document ---
Author Organization [facility] Address [address] [place] [address]- Care Team Providers Care Continuing Education Director Name Role Phone Berkley SMALL, Kacie Primary Care Physician Encounter [facility] Date(s): 04/08/21 - 05/08/21 [facility] [address] [place] [address]- [place] Allergies, Adverse Reactions, Alerts No Known Allergies
--- OUTSIDE RECORDS SUMMARY | 2023-12-31 10:01 | XMS_ITS | Continuity of Care Document ---
Author Organization [facility] Address [address] [place] [address]- Care Team Providers Care Field Professional Name Role Phone Kacie Gooden MD Primary Care Physician Encounter 05/13/21 - 10/31/21 [facility] [address], [address] [place] [address]- Attending Physician: Agata SMALL, Oz Sanders Admitting Physician: Agata SMALL, Oz Sanders Referring Physician: Agata SMALL, Oz Sanders Allergies, Adverse Reactions, Alerts No Known Allergies Medications pravastatin 20 mg oral tablet 20 mg, 1, tablet, By Mouth, Daily, # 30 tablet, Refills 0, Maintenance, 05/02/21 13:21:00 EST, Partial fill upon patient request if the prescription is for a schedule II opioid drug. Start Date: 05/02/21 Status: Ordered tamsulosin 0.4 mg oral capsule 0.4 mg, 1, capsule, By Mouth, Daily, # 30 capsule, Refills 0, Maintenance, 05/02/21 13:21:00 EST, Partial fill upon patient request if the prescription is for a schedule II opioid drug. Start Date: 05/02/21 Status: Ordered Care Team Personnel Name: Kacie Gooden MD Address: [address] [place] [address]
--- OUTSIDE RECORDS SUMMARY | 2023-12-31 10:01 | XMS_ITS | Continuity of Care Document ---
Author Organization [facility] [place] Address [address] [place] [address]- Care Team Providers Care Granite Worker Name Role Phone Berkley SMALL, Kacie Primary Care Physician Encounter [facility] NBR [id number] Date(s): 05/15/21 - 06/14/21 [facility] [place] [address] [place] [address]- Allergies, Adverse Reactions, Alerts No Known Allergies
--- NOTE | 2023-12-31 10:02 | MHC.OFFVIS ---
Intake Visit Reasons: Tel- Neck pain extended down body/weakness Intake Note: This is a 68 year old male who presents for a telehealth visit for neck pain extendin down his body. He reports that his condition has severely worsened, he has increased pain and is now shuffling instead of walking. Allergies No Known Allergies Allergy (Verified 12/31/23 10:06) Medication List - Last Reconciled 12/31/23 by Angely Padilla RN aspirin (Adult Low Dose Aspirin) 81 mg PO DAILY naproxen 500 mg PO BID PRN [id number]-UT 3.5-10,000-1 mg/mL-unit/mL-% otic (ears) rosuvastatin 40 mg PO tadalafil 5 mg PO DAILY 90 days terazosin 10 mg PO BEDTIME 90 days HPI Comments Details: He says he's had aches/pains diffusely. Morning stiffness. Pain on arms, difficulty raising. Muscle tensions both upper and lower body. When he gets up from bed, he feels legs are weak. Symptoms started gradually, on/off since June, and worse in the last month. He talks about wrist and hand swelling. He also had issues with ear infection. Had labs done at [facility] - positive TERI as of 11/09/23. ESR 17 in October. Lyme test negative. Taking Naproxen 500mg BID. Scheduled to see Rheumatology in January 2024; Dr. Abarca. In 2009, diagnosed PMR and thought to have RA, he was negative RF, treated with MTX and prednisone. In 2011, he had a wrist injury needing surgery, had to come off those medications, and never went back. He felt better despite without the medications/treatment for RA. Symptoms only started this year. Was seen by a Dr. Valencia 5 years ago, had xrays done, told to have osteoarthritis rather than RA. Torn RTC, right, treated nonsurgically, but improved with PT and ROM is full. Right hand swollen. Knee swells up from time to time. Neck stiffness. Denies low back pain. Bilateral hip pain but no groin pain. Left ankle swells from time to time. Numbness in both hands. He used to be active, gardening, but unable now. Family history - no rheumatologic or neuropathy PMHX - prediabetis, diet controlled; BPH I was able to tiger text Dr. Mccabe that day to ask advise what work up to be done prior to consult with Rheumatology. Xrays/labs done. Telehealth follow up today to discuss results. No erosions seen on any xray. Right knee mentioned chondrocalcinosis. ESR and CRP slightly elevated. Patient and say that he's gotten worse since I saw him, more swollen on both knees and legs. Have been harder for him to get up from chair and functionality has declined. He is bloated and constipated. He has been monitoring blood sugars, could run 120 in the morning, which worries him. [facility] Medical History BPH (benign prostatic hyperplasia) Enlarged prostate Hyperlipidemia Osteoarthritis of both hands Prostatism Surgical History History of carpal tunnel surgery Assessment & Plan Assessment & Plan (1) Arthritis: Code(s): M19.90 - Unspecified osteoarthritis, unspecified site Category: Medical (2) Positive TERI (antinuclear antibody): Code(s): R76.8 - Other specified abnormal immunological findings in serum Category: Medical (3) History of rheumatoid arthritis: Code(s): Z87.39 - Personal history of other diseases of the musculoskeletal system and connective tissue Category: Medical Plan Previously diagnosed rheumatoid arthritis in 2009, did well under methotrexate and prednisone. He has not been on medications since 2011. Last seen by printing table worker at [place] in 2020, told that he does not have rheumatoid arthritis but just osteoarthritis. He was active and doing well up until last spring. Complaining of morning stiffness and multiple joint pain and swelling. Further swelling and functional decline since I last saw him. Positive TERI, elevated ESR and CRP. No erosions or joint damage from xrays. But symptoms have gotten worse. Will see if we can ask Rheumatology department to see him sooner. Currently appointment is 02/[address] Mccabe. Advised fluids and fiber for constipation. He is in process of looking for new PCP. Assessment and plan discussed with patient, and patient was agreeable. All questions were answered thoroughly. We were able to get him an earlier appointment with Dr. Mccabe for Wednesday 8:20am. Angely Padilla our software implementation project manager spoke to about appointment. Total of more 45 minutes spent today including chart review, results review, history taking, physical examination, discussion of assessment and plan, and coordination of care. Shraddha Hernandez MD, RAMÍREZ Board Certified, [place] [employer] and Rehabilitation (ABPMR) Board Certified, [place] Board [employer] Electrodiagnostic Medicine (ABEM) Coding Level of Care Code Est Pt Level 4 (52871) Diagnoses Arthritis M19.90 Positive TERI (antinuclear antibody) R76.8 History of rheumatoid arthritis Z87.39
--- OUTSIDE RECORDS SUMMARY | 2023-12-31 10:02 | XMS_ITS | Continuity of Care Document ---
Author Organization [facility] Address [address] [place] [address]- Care Team Providers Care Aircraft Lay Out Worker Name Role Phone Raymond Duong MD Primary Care Physician Encounter [facility] Date(s): 08/29/22 - 10/08/[address] [address]- Attending Physician: Raymond Duong MD Admitting Physician: Raymond Duong MD Referring Physician: Raymond Duong MD Allergies, Adverse Reactions, Alerts No Known [...] opioid drug. Start Date: 05/02/21 Status: Ordered Patient Care team information Care Team Personnel Name: Raymond Duong MD Position: Reference Physician Member Role: PCP Address: Address: [address] [place] [address] [employer], [place], [place] [address] Care Team Related Persons Name: CLAY RAGLAND Address: home [address] [place] [address]
== END 2023-12-31 10:22 | disposition home or self-care (01) ==
LOC: HO.HOS 10:00
PROVIDERS: PCP Internal Medicine; Visit Provider Physical Medicine & Rehabilitation
DX: M19.90 Unspecified osteoarthritis, unspecified site (principal); R76.8 Other specified abnormal immunological findings in serum; Z87.39 Personal history of other diseases of the musculoskeletal system and connective tissue
CPT/HCPCS: 99215

== ENCOUNTER → 2023-12-31 10:00 | Outpatient (BNVA) | payer MEDICARE, SELFPAY | PROVIDERS: PCP Internal Medicine; Visit Provider Physical Medicine & Rehabilitation | DX: M19.90 Unspecified osteoarthritis, unspecified site (principal); R76.8 Other specified abnormal immunological findings in serum; Z87.39 Personal history of other diseases of the musculoskeletal system and connective tissue | CPT/HCPCS: 99212 ==

== ENCOUNTER 2024-01-03 07:51 | Outpatient (AMB) | payer MEDICARE, SELFPAY ==
--- NOTE | 2024-01-03 07:53 | A.OFFVIS_ITS ---
Vital Signs 3 01/03/24 08:02 Height 5 ft 8 in Weight 175 lb 0.752 oz BMI 26.6 BP 130/60 Blood Pressure Location Lt brachial Position Sitting Pulse 94 Pulse Source Pulse Oximeter Pulse Oximetry (%) 98 Oxygen Delivery Method Room Air Intake Visit Reasons: osteoarthritis/+TERI/CM Intake Note: Patient presents for Osteoarthritis./+TERI. Allergies No Known Allergies Allergy (Verified 01/03/24 07:57) Medication List - Last Reconciled 01/03/24 by Moy Mccabe MD aspirin (Adult Low Dose Aspirin) 81 mg PO DAILY naproxen 500 mg PO BID PRN rosuvastatin 40 mg PO tadalafil 5 mg PO DAILY 90 days terazosin 10 mg PO BEDTIME 90 days HPI Comments Details: This is a 68-year-old male who presents for evaluation of multiple swollen joints. Patient states that back in 2010 he had abrupt onset multiple joint pain and swelling including his hands. He was evaluated by double bottom driver and started on prednisone followed by methotrexate with good control of his disease. About a year later he broke his left wrist, he held methotrexate perioperatively. After the surgery however his symptoms seemed to improve on their own and he discontinued his methotrexate. About 2 months ago he started having abrupt onset of similar symptoms of pain swelling and stiffness of his hands as well as his ankles feet and shoulders. Morning stiffness lasting hours. He was prescribed naproxen with little relief. He has lost 10 lb over the last month mostly due to reduced appetite. He denies any history of DVT/PE. Denies any skin rashes. [facility] Medical History Basal cell carcinoma, face Hyperlipidemia Prostatism Osteoarthritis of both hands BPH (benign prostatic hyperplasia) Enlarged prostate Surgical History H/O wrist surgery History of carpal tunnel surgery Family History Mother Heart disease Graves disease Father Brain cancer PMR (polymyalgia rheumatica) Social History Household Members: Spouse Housing: House Alcohol intake: former Patient Tobacco Use Status: Former Tobacco user Years Smoked: 10 Review of Systems Const Reports fatigue and Reports weight loss Musc Reports arthralgias, Reports joint swelling and Reports stiffness Endo Reports fatigue Physical Exam Vital Signs: Last Vital Signs Pulse 94 01/03/24 08:02 BP 130/60 01/03/24 08:02 Pulse Ox 98 01/03/24 08:02 Oxygen Delivery Method Room Air 01/03/24 08:02 BMI result Body Mass Index 26.6 Const General: cooperative, healthy appearing and comfortable Nutritional Appearance: overweight Orientation/consciousness: patient oriented x3 Limitations: no limitations HEENT Head: Yes normocephalic and Yes atraumatic Mouth: moist mucous membranes Resp Effort & Inspection: normal respiratory effort and able to speak in complete sentences Auscultation: clear to auscultation bilaterally Cardio Rate: regular rate and tachycardic Rhythm: regular rhythm Heart sounds: Murmur heart sound present systolic Skin General skin exam: no rashes or lesions noted Neuro General: patient oriented x3 Extrem Other: Patient essentially has diffuse synovitis. Significant swelling and tenderness of the dorsum of the right hand as well as his fingers and MCPs. Bilateral elbow pain with full extension Significantly and shoulder abduction bilaterally Bilateral knee pain with flexion-extension without significant swelling Bilateral ankles and feet swelling, bilateral pitting edema of the shins Normal nailfold capillaroscopy Assessment & Plan Assessment & Plan (1) History of rheumatoid arthritis: Code(s): Z87.39 - Personal history of other diseases of the musculoskeletal system and connective tissue Category: Medical Plan: This is a 68-year-old male presents for evaluation of abrupt onset of inflammatory arthritis. Almost RS3PE like involving the right hand. Similar symptoms started in 2010, at that time he was started on prednisone followed by methotrexate. Self-discontinued methotrexate after 1 year. Serology from 2018 with negative TERI/RF/CCP and Lyme screen. I will repeat labs, comprehensive serology. Start prednisone taper. Stop naproxen Follow-up in 4-6 weeks Plan I spent 46 minutes reviewing patient's chart, evaluating patient, ordering diagnostic workup, counseling patient and documenting in the chart Orders: Orders 2 Complete Blood Count Auto Diff Today M32.9 - Systemic lupus erythematosus, unspecified Comprehensive Met. Panel Today M32.9 - Systemic lupus erythematosus, unspecified Erythrocyte Sedimentation Rate Today M32.9 - Systemic lupus erythematosus, unspecified T Spot TB Today Z11.7 - Encounter for testing for latent tuberculosis infection Protein Electrophoresis, Serum Today M32.9 - Systemic lupus erythematosus, unspecified TERI Reflex Titer and Pattern Today M32.9 - Systemic lupus erythematosus, unspecified Complement C3 Today M32.9 - Systemic lupus erythematosus, unspecified Protein Creatinine Ratio, Ur Today M32.9 - Systemic lupus erythematosus, unspecified UA w Microscopic Today M32.9 - Systemic lupus erythematosus, unspecified Sjogren's Antibodies Today M32.9 - Systemic lupus erythematosus, unspecified Rheumatoid Factor Today M32.9 - Systemic lupus erythematosus, unspecified Cyclic Citrullinated Peptide Today M32.9 - Systemic lupus erythematosus, unspecified Scleroderma 12 Panel Today M34.9 - Systemic sclerosis, unspecified C Reactive Protein Today M32.9 - Systemic lupus erythematosus, unspecified Hepatitis A,B,C Profile Today Z11.59 - Encounter for screening for other viral diseases Immunofixation Pnl, Serum Today M32.9 - Systemic lupus erythematosus, unspecified Anti Extractable Nuclear Ag Today M32.9 - Systemic lupus erythematosus, unspecified Anti DNA DS Antibody Today M32.9 - Systemic lupus erythematosus, unspecified Complement C4 Today M32.9 - Systemic lupus erythematosus, unspecified DNA Double Stranded-Crithidia Today M32.9 - Systemic lupus erythematosus, unspecified Hemoglobin A1c Today E11.9 - Type 2 diabetes mellitus without complications Medications: New 2 prednisone Take 3 tabs daily for 1 week then 2 tabs daily for 1 week then remain on 1 tab daily 100 tabs 0RF Coding Level of Care Code New Pt Level 4 (04673) Diagnoses History of rheumatoid arthritis Z87.39
[2024-01-03 08:02] VITALS: BP 130/60; PULSE 94; O2SAT 98; BMI 26.6
== END 2024-01-03 08:38 | disposition home or self-care (01) ==
LOC: HO.RHE 07:52
PROVIDERS: PCP Internal Medicine; Visit Provider Student in an Organized Health Care Education/Training Program
DX: Z87.39 Personal history of other diseases of the musculoskeletal system and connective tissue (principal)
CPT/HCPCS: 99204

== ENCOUNTER 2024-01-03 07:51 | Outpatient (REF) | payer MEDICARE, SELFPAY ==
[2024-01-03 10:07] LABS: MANUAL DIFF FLAG NO
[2024-01-03 10:13] LABS: Basophils Absolute Auto 0.1 X10*3/uL (0.0-0.2); Basophils Percent Auto 0.8 % (0-2); Eosinophils Absolute Auto 0.1 X10*3/uL (0.0-0.4); Eosinophils Percent Auto 1.3 % (0-4); Hematocrit 38.7 % (42.0-52.0); Hemoglobin 12.9 g/dl (14.0-18.0); Imm Gran Abs Auto 0.04 X10*3/uL (0.00-0.03); Imm Gran Pct Auto 0.5 % (0.0-0.4); Lymphocytes Absolute Auto 1.4 X10*3/uL (1.2-4.9); Lymphocytes Percent Auto 16.5 % (20-40); Mean Corpuscular HGB Conc 33.3 g/dl (31.0-36.0); Mean Corpuscular Hemoglobin 28.4 pg (27.0-33.0); Mean Corpuscular Volume 85.1 fL (80.0-98.0); Mean Platelet Volume 10.2 fL (9.4-12.4); Monocytes Absolute Auto 0.6 X10*3/uL (0.1-1.2); Monocytes Percent Auto 6.8 % (2-11); Neutrophils Absolute Auto 6.4 x10*3/uL (2.0-8.3); Neutrophils Percent Auto 74.1 % (45-73); Platelet Count 312 X10*3/uL (160-400); Red Blood Count 4.55 X10*6/uL (4.60-5.80); Red Cell Distribution Width 12.8 % (11.0-16.0); White Blood Count 8.6 X10*3/uL (4.8-10.8)
[2024-01-03 10:52] LABS: Erythrocyte Sedimentation Rate 39 MM/HR (0-15)
[2024-01-03 11:23] LABS: Alanine Aminotransferase 16 U/L (0-40); Albumin Level 3.8 g/dL (3.5-5.0); Alkaline Phosphatase 69 U/L (39-117); Anion Gap 15 (12-20); Aspartate Amino Transferase 18 U/L (5-37); Bilirubin Total 0.4 mg/dL (0.0-1.0); Blood Urea Nitrogen 11 mg/dL (9-16); C Reactive Protein 6.89 mg/dL (< or = 0.50); Carbon Dioxide 23 mmol/L (22-29); Chloride 104 mmol/L (96-108); Estimated Glomerular Filt Rate > 60; Glucose Random 124 mg/dL (60-115); Potassium 3.8 mmol/L (3.3-5.1); Sodium 138 mmol/L (135-145); Total Protein 7.3 g/dL (6.5-8.0)
[2024-01-03 11:30] LABS: HBc Num1 0.19 S/CO (0.00-0.79); HBsAGNum1 0.51 S/CO (0.00-0.99); Hepatitis A Antibody IgM 0.15 Index (0-0.79); Hepatitis B Core Antibody Nonreactive (Nonreactive); Hepatitis B Surface Antigen Negative (Negative); ~HepC Num1 0.13 S/CO (0.00-0.79); ~Hepatitis A Antibody IgM Nonreactive (Nonreactive); ~Hepatitis B Surface Antibody NONREACTIVE (Nonreactive); ~Hepatitis C Antibody Nonreactive (Nonreactive)
[2024-01-03 12:04] LABS: Rheumatoid Factor < 13.0 IU/mL (<15.0)
[2024-01-03 12:06] LABS: Estimated Average Glucose 108 mg/dL; Hemoglobin A1C 119.2079 umol/L; Hemoglobin A1c % 5.4 % (<6.0); Total Hemoglobin (HGBA1C) 3408.2794 umol/L
[2024-01-03 14:15] LABS: Appearance Urine Clear; Color Urine Yellow; Glucose Urine UA Negative (Negative); Leukocyte Esterase Urine Negative (Negative); Nitrite Urine Negative (Negative); Urine Blood Negative (Negative); Urine Ketones Negative (Negative); Urine Protein Negative (Neg-Trace)
[2024-01-03 14:24] LABS: Bacteria Urine None Seen (None Seen); Hyaline Casts Urine 0-2 /LPF (0-2); RBC Urine 0-2 /HPF (0-2); Squamous Epithelial Cell Urine 0-2 /HPF (0-2); WBC Urine 0-5 /HPF (0-5)
[2024-01-03 15:11] LABS: Creatinine Urine 161.45 mg/dL; Protein/Creatinine Ratio, Ur 0.08 (<0.2); Total Protein Urine Random 13 mg/dL (<12)
[2024-01-04 16:09] LABS: Anti DNA DS Antibody <1 IU/mL; Antibody to SS-A Antigen <1.0 NEG AI (<1.0 NEG); Antibody to SS-B Antigen <1.0 NEG AI (<1.0 NEG); SM/Ribonucleoprotein Ab <1.0 NEG AI (<1.0 NEG); Smith Protein <1.0 NEG AI (<1.0 NEG)
[2024-01-04 16:28] LABS: Complement C3 159 mg/dL (82-185)
[2024-01-05 10:04] LABS: Prot Elec - Albumin 3.6 g/dL (3.8-4.8); Prot Elec - Alpha1 0.6 g/dL (0.2-0.3); Prot Elec - Alpha2 0.9 g/dL (0.5-0.9); Prot Elec - Beta 1 0.4 g/dL (0.4-0.6); Prot Elec - Beta 2 0.4 g/dL (0.2-0.5); Prot Elec - Gamma 1.1 g/dL (0.8-1.7)
[2024-01-05 22:29] LABS: IgA 172 mg/dL (70-320); IgG 1242 mg/dL (600-1540); IgM 109 mg/dL (50-300)
[2024-01-06 07:13] LABS: Cyclic Citrullinated Peptide <16 UNITS
[2024-01-06 13:53] LABS: TS Negative Control Passed; TS Panel A 0; TS Panel B 1; TS Positive Control Passed; TSpotTB Negative (Negative)
[2024-01-06 18:04] LABS: DNAds, Crithidia Antibody Negative (Negative)
[2024-01-07 09:33] LABS: Anti Nuclear Antibody Screen NEGATIVE (NEGATIVE)
[2024-01-09 15:18] LABS: Testosterone, Free 30.1 pg/mL (35.0-155.0); Testosterone, Total 161 ng/dL (250-1100)
[2024-01-11 16:09] LABS: Centromere Protein A Ab <11 SI (<11); Centromere Protein B Ab <11 SI (<11); Fibrillarin Ab <11 SI (<11); PM SCL 100 Ab <11 SI (<11); PM SCL 75 Ab <11 SI (<11); RNA Polymerase III RP11 Ab <11 SI (<11); RNA Polymerase III RP155 Ab <11 SI (<11); SCL-70 Extractable Nuclear Ab <11 SI (<11); Th-To Ab <11 SI (<11); U1 SNRNP RNP 70KD <11 SI (<11); U1 SNRNP RNP A <11 SI (<11); U1 SNRNP RNP C <11 SI (<11)
== END 2024-01-03 07:52 | disposition home or self-care (01) ==
LOC: HO.HMGCLDS 07:51
PROVIDERS: Urology; PCP Internal Medicine; Visit Provider Student in an Organized Health Care Education/Training Program
DX: M32.9 Systemic lupus erythematosus, unspecified (principal); Z11.7 Encounter for testing for latent tuberculosis infection; M34.9 Systemic sclerosis, unspecified; Z11.59 Encounter for screening for other viral diseases; E11.9 Type 2 diabetes mellitus without complications; R68.82 Decreased libido; E29.1 Testicular hypofunction; Z87.39 Personal history of other diseases of the musculoskeletal system and connective tissue
CPT/HCPCS: 36415; 80053; 81001; 82570; 82784; 83036; 84156; 84165; 84182; 84402; 84403; 85025; 85652; 86038; 86140; 86160; 86200; 86225; 86235; 86255; 86334; 86431; 86481; 86704; 86706; 86709; 86803; 87340; 99202

== ENCOUNTER 2024-01-18 14:45 | Outpatient (AMB) | payer MEDICARE, SELFPAY ==
--- NOTE | 2024-01-18 15:11 | A.OFFVIS_ITS ---
Intake Visit Reasons: 6M Testosterone(set) Intake Note: Patient is present for Testosterone results Urology Med: Terazosin, Tadalafil Antibiotic Allergy: None Blood Thinner: Aspirin LABS: 01/03/2024 -Total Testosterone: 161 - Free Testosterone: 30.1 - Hemoglobin A1C- 5.4 Assistant Sales Manager Required: No Accompanied by: Self / Same As Patient Allergies No Known Allergies Allergy (Verified 01/18/24 15:13) HPI Comments Details: Leno is a very pleasant male. He is a patient of Dr. Duong. Seen for the following urologic conditions - lower urinary tract symptom - hypogonadism Six-month follow-up Persistently low total testosterone with adequate free testosterone Symptomatically stable Reviewed current lab work. Lab work borderline low Continue tadalafil daily which might increase testosterone Lower urinary tract symptoms Initial presentation with progressive weakness of stream, nocturia Current therapy terazosin Prior procedure 1999 for bladder neck Hypogonadism Labs 10/20 235, 12/20 285, T 04/23 310 F 46 FSH 9 LH 5.2, 10/21 T 266 F 62 LH 5.8, 07/22 T 268 FSH 8.2 LH 5.8, 01/22 T 161 Low interest, normal erections On statins 40mg rosuvastatin PFSH Medical History Basal cell carcinoma, face Hyperlipidemia Prostatism Osteoarthritis of both hands BPH (benign prostatic hyperplasia) Enlarged prostate Surgical History H/O wrist surgery History of carpal tunnel surgery Family History Mother Heart disease Graves disease Father Brain cancer PMR (polymyalgia rheumatica) Social History Household Members: Spouse Housing: House Alcohol intake: former Patient Tobacco Use Status: Former Tobacco user Years Smoked: 10 Review of Systems Const Denies chills and Denies fever(s) Card Reports no additional complaints and Denies syncope Resp Denies cough GI Denies abdominal pain and Denies heartburn Reports as per HPI and Denies change in libido Neuro Denies syncope Psych Denies change in libido Endo Denies change in libido Physical Exam Const General: cooperative, healthy appearing, comfortable and no acute distress Orientation/consciousness: patient oriented x3 HEENT Face and sinus: Yes normal facial exam Mouth: moist mucous membranes Neck Neck: Yes normal visual inspection, Yes full ROM and Yes trachea midline Chest Chest palpation & inspection: normal inspection of the chest Resp Effort & Inspection: normal respiratory effort, able to speak in complete sentences and no respiratory distress GI Inspection: Yes normal to inspection Back/Spine/Pelvis Cervical Spine: normal cervical lordosis Thoracic/Lumbar Spine: thoracic and lumbar spine normal to inspection Skin General skin exam: no rashes or lesions noted Neuro General: patient oriented x3, gait normal, tone normal and moves all extremities Extrem General: Yes normal to inspection and Yes capillary refill normal Assessment & Plan Assessment & Plan (1) Enlarged prostate: Code(s): N40.0 - Benign prostatic hyperplasia without lower urinary tract symptoms Category: Medical (2) BPH (benign prostatic hyperplasia): Code(s): N40.0 - Benign prostatic hyperplasia without lower urinary tract symptoms Category: Medical (3) Hypogonadism in male: Code(s): E29.1 - Testicular hypofunction Category: Medical Plan Six-month follow-up Labs Orders: Orders Prostate Specific Antigen 6 Months E29.1 - Testicular hypofunction Testosterone, Total 6 Months E29.1 - Testicular hypofunction Patient Instructions: Imaging studies, laboratory and physical exam results were discussed and reviewed in detail. No major barriers to patient understanding were identified. An opportunity to ask questions regarding the treatment plan was provided. All questions were answered. The patient expressed understanding and agreement with the above treatment plan. The patient is aware they should contact our office by phone for worsening of their current condition or the appearance of new urologic symptoms. Compliance is encouraged with any medications and followup testing that is ordered. It is a privilege to participate in the urologic care of your patient. If you have any questions or concerns regarding treatment for the above conditions, or other urologic issues, please do not hesitate to contact me. The office telephone contact is [phone]. This note is constructed using voice recognition software. While every effort has been made to ensure accuracy director investment banking errors may have been included. Yours sincerely, Dr Cosme Astorga MD, [facility] - Urology Providers of Expert, Compassionate Care for the Genitourinary System Coding Level of Care Code Est Pt Level 3 (33435) Diagnoses Enlarged prostate N40.0 BPH (benign prostatic hyperplasia) N40.0 Hypogonadism in male E29.1
== END 2024-01-18 15:54 | disposition home or self-care (01) ==
PROVIDERS: PCP Internal Medicine; Visit Provider Urology
DX: N40.0 Benign prostatic hyperplasia without lower urinary tract symptoms (principal); E29.1 Testicular hypofunction
CPT/HCPCS: 99213

== ENCOUNTER → 2024-01-18 14:45 | Outpatient (BNVA) | payer MEDICARE, SELFPAY | PROVIDERS: PCP Internal Medicine; Visit Provider Urology | DX: N40.0 Benign prostatic hyperplasia without lower urinary tract symptoms (principal); E29.1 Testicular hypofunction | CPT/HCPCS: 99212 ==

== ENCOUNTER 2024-02-03 09:10 | Outpatient (AMB) | payer MEDICARE, SELFPAY ==
--- NOTE | 2024-02-03 09:12 | A.OFFVIS_ITS ---
Vital Signs 02/03/24 09:16 Height 5 ft 8 in Weight 179 lb 10.828 oz BMI 27.3 BP 115/62 Blood Pressure Location Lt brachial Position Sitting Respiration 18 Pulse 85 Pulse Source Pulse Oximeter Pulse Oximetry (%) 98 Oxygen Delivery Method Room Air Intake Visit Reasons: RA/CM Intake Note: Patient presents for RA. Allergies No Known Allergies Allergy (Verified 02/03/24 09:15) Medication List - Last Reconciled 02/03/24 by Moy Mccabe MD aspirin (Adult Low Dose Aspirin) 81 mg PO DAILY folic acid 1 mg PO DAILY methotrexate sodium Take 6 tabs once weekly for 2 weeks then remain on 8 tablets once weekly prednisone Take 3 tabs daily for 1 week then 2 tabs daily for 1 week then remain on 1 tab daily prednisone orally; Take 2 tabs daily for 2 weeks then remain on 1 tab daily rosuvastatin 40 mg PO tadalafil 5 mg PO DAILY 90 days terazosin 10 mg PO BEDTIME 90 days HPI Comments Details: Patient returns for follow-up after completion of his diagnostic workup. He has been taking the prednisone as prescribed. He feels about 70% improvement. He continues to have morning stiffness lasting a few hours. The majority of the pain and stiffness now is from his hips down. Initial history: This is a 68-year-old male who presents for evaluation of multiple swollen joints. Patient states that back in 2010 he had abrupt onset multiple joint pain and swelling including his hands. He was evaluated by rn post partum and started on prednisone followed by methotrexate with good control of his disease. About a year later he broke his left wrist, he held methotrexate perioperatively. After the surgery however his symptoms seemed to improve on their own and he discontinued his methotrexate. About 2 months ago he started having abrupt onset of similar symptoms of pain swelling and stiffness of his hands as well as his ankles feet and shoulders. Morning stiffness lasting hours. He was prescribed naproxen with little relief. He has lost 10 lb over the last month mostly due to reduced appetite. He denies any history of DVT/PE. Denies any skin rashes. [facility] Medical History (Updated 02/03/24 @ 09:45 by Moy Mccabe MD) History of rheumatoid arthritis Basal cell carcinoma, face Hyperlipidemia Prostatism Osteoarthritis of both hands BPH (benign prostatic hyperplasia) Enlarged prostate Surgical History H/O wrist surgery History of carpal tunnel surgery Family History Mother Heart disease Graves disease Father Brain cancer PMR (polymyalgia rheumatica) Social History Household Members: Spouse Housing: House Alcohol intake: former Patient Tobacco Use Status: Former Tobacco user Years Smoked: 10 Review of Systems Const Reports fatigue Musc Reports arthralgias, Reports joint swelling and Reports stiffness Endo Reports fatigue Physical Exam Vital Signs: Last Vital Signs Pulse 85 02/03/24 09:16 Resp 18 02/03/24 09:16 BP 115/62 02/03/24 09:16 Pulse Ox 98 02/03/24 09:16 Oxygen Delivery Method Room Air 02/03/24 09:16 BMI result Body Mass Index 27.3 Const General: cooperative, healthy appearing and comfortable Nutritional Appearance: overweight Orientation/consciousness: patient oriented x3 Limitations: no limitations HEENT Head: Yes normocephalic and Yes atraumatic Mouth: moist mucous membranes Resp Effort & Inspection: normal respiratory effort and able to speak in complete sentences Auscultation: clear to auscultation bilaterally Cardio Rate: regular rate Rhythm: regular rhythm Skin General skin exam: no rashes or lesions noted Neuro General: patient oriented x3 Extrem Other: Synovitis significantly improved compared to last visit No joints that are particularly swollen both hands and wrists Significantly limited left wrist flexion-extension. Has history of left wrist surgery Normal bilateral hand manager international strength No elbow pain with full flexion-extension Normal range of motion of shoulders Bilateral knee pain with full extension No knee swelling or warmth No hip pain bilaterally with manipulation No trochanteric bursa area tenderness No groin pain with bilateral foot inversion Trace pitting edema bilaterally No ankle swelling or tenderness bilaterally Assessment & Plan Assessment & Plan (1) Seronegative rheumatoid arthritis: Code(s): M06.00 - Rheumatoid arthritis without rheumatoid factor, unspecified site Category: Medical Plan: This is a 68-year-old male presents for evaluation of abrupt onset of infl ammatory arthritis. Almost RS3PE like involving the right hand. Similar symptoms started in 2010, at that time he was started on prednisone followed by methotrexate. Self-discontinued methotrexate after 1 year. Repeat labs showed significantly elevated inflammatory markers with negative serologies. He is currently on prednisone 10 mg daily with significant improvement I will treat patient as seronegative RA at this time. It seems like methotrexate was effective in the past. Discussed risks and benefits of methotrexate. Patient agreed to proceed. Advised patient to get flu vaccine GUERA, stay on prednisone 10 mg a day for 2 more weeks then lower prednisone to 5 mg a day Two weeks after flu vaccination start methotrexate 15 mg weekly for 2 weeks then 20 mg once weekly Start folic acid 1 mg a day Labs before next visit in 2 months (2) manager intermediate methotrexate user: Code(s): Z79.631 - long-term (current) use of antimetabolite agent Category: Medical Plan: Side effects of methotrexate were discussed with the patient in detail including oral ulcers, elevated LFTs, abdominal discomfort, and possible pancytopenias. Will monitor patient for side effects with frequent lab work. Advised patient to take folic acid daily to prevent complications of methotrexate. Plan I spent 26 minutes reviewing patient's chart, evaluating patient, ordering diagnostic workup, counseling patient and documenting in the chart Orders: Orders C Reactive Protein 2 Months M06.00 - Rheumatoid arthritis without rheumatoid factor, unspecified site, Z79.631 - manager intermediate (current) use of antimetabolite agent Erythrocyte Sedimentation Rate 2 Months M06.00 - Rheumatoid arthritis without rheumatoid factor, unspecified site, Z79.631 - manager intermediate (current) use of antimetabolite agent Complete Blood Count Auto Diff 2 Months M06.00 - Rheumatoid arthritis without rheumatoid factor, unspecified site, Z79.631 - manager intermediate (current) use of antimetabolite agent Comprehensive Met. Panel 2 Months M06.00 - Rheumatoid arthritis without rheumatoid factor, unspecified site, Z79.631 - long-term (current) use of antimetabolite agent Medications: New prednisone orally; Take 2 tabs daily for 2 weeks then remain on 1 tab daily 90 tabs 0RF methotrexate sodium Take 6 tabs once weekly for 2 weeks then remain on 8 tablets once weekly 64 tabs 0RF folic acid 1 mg PO DAILY 90 tabs 0RF Coding Level of Care Code Est Pt Level 4 (39774) Complex EM visit Add On G2211 Diagnoses Seronegative rheumatoid arthritis M06.00 manager intermediate methotrexate user Z79.631
[2024-02-03 09:16] VITALS: BP 115/62; PULSE 85; RESP 18; O2SAT 98; BMI 27.3
--- OUTSIDE RECORDS SUMMARY | 2024-02-09 00:49 | XMS_ITS ---
Author Organization [facility] Address [address] [place] [address] Care Team Providers Care Institutional Research Director Name Role Phone Aleks Torres [phone] ALLERGIES, ADVERSE REACTIONS, ALERTS None MEDICATIONS Medication Code Code System Start Date Stop Date Route Dosage Directions Fill Instructions ROSUVASTATIN CALCIUM 40 MG TAB RxNorm 02/20/20 1 TERAZOSIN 10 MG CAPSULE RxNorm 02/24/20 1 naproxen 441202 RxNorm oral neomycin-polymy luis-HC 434770 RxNorm otic (ear) 3 PROBLEMS Problem Name Code Code System Start Date End Date Stat us Other hyperlipidemia 899702134 [facility] Active Benign prostatic hyperplasia without lower urinary tract symptoms 622978854 [facility] Active Impacted cerumen, left ear 0642235655503910 [facility] 024 Active Other otitis externa, left ear 6156171949142760 [facility] 12/07/2023 Active ENCOUNTERS Encounter Diagnosis Code Code System Date Stat us Contact with and (suspected) exposure to COVID-19 149279832 [facility] 03/06/2023 Active Acute cough 34934149 [facility] 03/06/2023 Active Pneumonia, unspecified organism 493016800 [facility] 2023 Active IMMUNIZATIONS * None VITAL SIGNS Code Code System Vitals Name Date Value and Un its 8462-4 [facility] Blood Pressure-Diastolic 03/06/2023 80 mmHg 8480-6 [facility] Blood Pressure-Systolic 03/06/2023 1 29 mmHg 8867-4 [facility] Heart Rate 03/06/2023 90 /min 9279-1 [facility] Respiratory Rate 03/06/2023 16 /min 8310-5 [facility] Body Temperature 03/06/2023 98.4 F 00214-8 [facility] Oxygen Saturation 03/06/2023 97 % SOCIAL HISTORY * None PROCEDURES * None RESULTS Test Code Code System Description Result Value Date Ref erence Range [facility] RSV negative 03/06/2023 negative [facility] SARS-CoV-2 Not Detected 03/06/2023 Not De tected [facility] Flu A Not Detected 03/06/2023 Not Det ected [facility] Flu B Not Detected 03/06/2023 Not Det ected MEDICAL EQUIPMENT * Patient has no history of implantable devices ASSESSMENT Assessment Your testing has been negati ve here today.An x-ray has been performed.We will contact you with the results of the test.If there is any abnormality suggestive of pneumonia we will get you started on antibiotics.If the x-ray is negative I suspect you have a viral bronchitis. This will typically take 1 to 3 weeks to entirely resolve.Take the cough medication as prescribed. Use the albuterol inhaler as needed.If you develop a fever or worsening symptoms please be reevaluated immediately TREATMENT PLAN Type Description Date MEDICATION Take 03/06/2023 MEDICATION Take 03/06/2023 MEDICATION Take 03/06/2023 APPOINTMENT If not feeling chanell r in 3 day(s), please see your primary care physician. If you do not have a primary care physician, please return to this clinic. 03/06/2023 Labs Tests Test Name Code Code System Date Maye/Cepheid SARS-CoV-2 & Fl u A/B Multiplex Assay, Amplified Probe Molecular RT-PCR / NAAT 72791 CPT 03/06/2023 Zenaida 2 RSV Antigen ALLISON 24708 CPT 2023 GOALS * None HEALTH CONCERNS * No Health Concerns FUNCTIONAL AND COGNITIVE STATUS * None CONSULTATION NOTES * None DISCHARGE SUMMARY NOTES * None HISTORY AND PHYSICAL NOTES * None IMAGING NOTES * /[place] History: cough x6 days. neg flu/covid and rsv.ExaminationDescription: Chest xray, frontal and lateral viewsComparisons:None provided. FindingsThe cardiomediastinal silhouette is within normal limits.There are peribronchial markings in both lungs consistent with bronchial inflammation. Patchy infilt rates in the bilateral lung basesNo pleural effusions are seen.There is no pneumothorax present. Scoliosis. IMPRESSION:1. There are peribronchial markings in both lungs consistent with bronchial inflammation. 2. Patchy infiltrates in the bilateral lung bases LABORATORY REPORT NARRATIVE NOTES * None PATHOLOGY REPORT NARRATIVE NOTES * None PROGRESS NOTES * None
--- OUTSIDE RECORDS SUMMARY | 2024-02-09 00:49 | XMS_ITS ---
Author Organization [facility] Address [address] [place] [address] Care Team Providers Care C Engineer Name Role Phone Dior Parmar Unavailable [phone] ALLERGIES, ADVERSE REACTIONS, ALERTS None MEDICATIONS Medication Code Code System Start Date Stop Date Route Dosage Directions Fill Instructions ROSUVASTATIN CALCIUM 40 MG TAB RxNorm 02/20/20 1 TERAZOSIN 10 MG CAPSULE RxNorm 02/24/20 1 naproxen 872007 RxNorm oral neomycin-polymy luis-HC 112176 RxNorm otic (ear) 3 PROBLEMS Problem Name Code Code System Start Date End Date Stat us Other hyperlipidemia 291006582 [facility] Active Benign prostatic hyperplasia without lower urinary tract symptoms 568418578 [facility] Active Impacted cerumen, left ear 9465242656179719 [facility] 024 Active Other otitis externa, left ear 0973006792793024 [facility] 12/07/2023 Active ENCOUNTERS Encounter Diagnosis Code Code System Date Stat us Otalgia, left ear 1946758008945009 [facility] 12/01/2023 A ctive Impacted cerumen, left ear 1441953741174410 [facility] 12/01/2023 Active Other fatigue 97777451 [facility] 12/01/2023 Active Muscle weakness (generalized) 879503184 [facility] 024 Active Myalgia, other site 11769064 [facility] 12/01/2023 Activ e Otitis media, unspecified, left ear 5076900944449555 [facility] 12/01/2023 Active IMMUNIZATIONS * None VITAL SIGNS Code Code System Vitals Name Date Value and Un its 8462-4 [facility] Blood Pressure-Diastolic 12/01/2023 80 mmHg 8480-6 [facility] Blood Pressure-Systolic 12/01/2023 1 43 mmHg 8867-4 [facility] Heart Rate 12/01/2023 73 /min 9279-1 [facility] Respiratory Rate 12/01/2023 18 /min 8310-5 [facility] Body Temperature 12/01/2023 97.6 F 88691-7 [facility] Oxygen Saturation 12/01/2023 96 % SOCIAL HISTORY * None PROCEDURES Code Code System Procedure Date Status Notes 11769 Cpt4 Cerumen Removal 12/01/2023 completed Dior Parmar - 12/01/2023 Lavage/irrigation performed for cerumen removal of left ear. Cerumen is moist, yellow, cerumen completely removed, tympanic membrane visualized and intact after procedure, TM intact but erythematous and bulging. Patient tolerated procedure well. MEDICAL EQUIPMENT * Patient has no history of implantable devices ASSESSMENT * None TREATMENT PLAN Type Description Date MEDICATION Take 250 mg tablet 12/01/2023 ORDERS Your prior history o f rheumatoid arthritis does bring about concern for your rapid onset of new symptoms of joint and body pain, fatigue and weakness. Given that you are primary care provider has begun an evaluation and referred to to rheumatology there is nothing more to do at this time except be sure you are evaluated by a performance specialist soon. Since the appointment you currently have scheduled is not until January you may want to try to reach out to other rheumatology practices such as [facility] in [place] or a practice in the [facility] area. Your primary care certainly can help with a referral to another practice if one is able to give you an appointment sooner than January. 12/01/2023 APPOINTMENT If not feeling chanell r in 3 day(s), please see your primary care physician. If you do not have a primary care physician, please return to this clinic. 12/01/2023 Lab Tests None GOALS * None HEALTH CONCERNS * No Health Concerns FUNCTIONAL AND COGNITIVE STATUS * None CONSULTATION NOTES * None DISCHARGE SUMMARY NOTES * None HISTORY AND PHYSICAL NOTES * Reason for visit - Illness IMAGING NOTES * None LABORATORY REPORT NARRATIVE NOTES * None PATHOLOGY REPORT NARRATIVE NOTES * None PROGRESS NOTES * None
--- OUTSIDE RECORDS SUMMARY | 2024-02-09 00:49 | XMS_ITS ---
Author Organization [facility] Address [address] [place] [address] Care Team Providers Care Investigator Fraud Name Role Phone Sara Odonnell Unavailable ALLERGIES, ADVERSE REACTIONS, ALERTS None MEDICATIONS Medication Code Code System Start Date Stop Date Route Dosage Directions Fill Instructions ROSUVASTATIN CALCIUM 40 MG TAB RxNorm 02/20/20 1 TERAZOSIN 10 MG CAPSULE RxNorm 02/24/20 1 naproxen 103219 RxNorm oral neomycin-polymy luis-HC 479332 RxNorm otic (ear) 3 PROBLEMS Problem Name Code Code System Start Date End Date Stat us Other hyperlipidemia 995360809 [facility] Active Benign prostatic hyperplasia without lower urinary tract symptoms 690068070 [facility] Active Impacted cerumen, left ear 9820415875979497 [facility] 024 Active Other otitis externa, left ear 0885133557794062 [facility] 12/07/2023 Active ENCOUNTERS Encounter Diagnosis Code Code System Date Stat us Impacted cerumen, left ear 6465020679320802 [facility] 12/07/2023 Active Other otitis externa, left ear 8252247410412318 [facility] 12/07/2023 Active IMMUNIZATIONS * None VITAL SIGNS Code Code System Vitals Name Date Value and Un its 8462-4 [facility] Blood Pressure-Diastolic 12/07/2023 70 mmHg 8480-6 [facility] Blood Pressure-Systolic 12/07/2023 1 46 mmHg 8867-4 [facility] Heart Rate 12/07/2023 83 /min 9279-1 [facility] Respiratory Rate 12/07/2023 18 /min 8310-5 [facility] Body Temperature 12/07/2023 97.5 F 67347-4 [facility] Oxygen Saturation 12/07/2023 98 % SOCIAL HISTORY * None PROCEDURES Code Code System Procedure Date Status Notes 97730 Cpt4 Cerumen Removal 12/07/2023 completed Sara Odonnell - 12/07/2023 Risks and benefits of procedure and alternatives discussed, and patient verbalized understanding and consent. Lavage/irrigation performed for cerumen removal of left ear. cerumen completely removed, tympanic membrane visualized and intact after procedure, Patient tolerated procedure well. Patient left room ambulating without difficulty. left ear canal with slight residual exudate, TM seen and intact. Left ear canal erythematous especially inferior aspect no bleeding. Minimal inflammation. No tragus or pinna tenderness. No mastoid tenderness. MEDICAL EQUIPMENT * Patient has no history of implantable devices ASSESSMENT * None TREATMENT PLAN Type Description Date MEDICATION Take 3.5-95400-2 mg/mL-unit/mL-% drops, suspension 12/07/2023 APPOINTMENT If not feeling chanell r in 3 day(s), please see your primary care physician. If you do not have a primary care physician, please return to this clinic. 12/07/2023 Lab Tests None GOALS * None HEALTH CONCERNS * No Health Concerns FUNCTIONAL AND COGNITIVE STATUS * None CONSULTATION NOTES * None DISCHARGE SUMMARY NOTES * None HISTORY AND PHYSICAL NOTES * None IMAGING NOTES * None LABORATORY REPORT NARRATIVE NOTES * None PATHOLOGY REPORT NARRATIVE NOTES * None PROGRESS NOTES * None
== END 2024-02-03 09:41 | disposition home or self-care (01) ==
PROVIDERS: PCP Internal Medicine; Visit Provider Student in an Organized Health Care Education/Training Program
DX: M06.00 Rheumatoid arthritis without rheumatoid factor, unspecified site (principal); Z79.631 Long term (current) use of antimetabolite agent
CPT/HCPCS: 99214; G2211

== ENCOUNTER → 2024-02-03 09:10 | Outpatient (BNVA) | payer MEDICARE, SELFPAY | PROVIDERS: PCP Internal Medicine; Visit Provider Student in an Organized Health Care Education/Training Program | DX: M06.00 Rheumatoid arthritis without rheumatoid factor, unspecified site (principal); Z79.631 Long term (current) use of antimetabolite agent | CPT/HCPCS: 99212 ==

== ENCOUNTER 2024-04-05 08:15 | Outpatient (REF) | payer MEDICARE, SELFPAY ==
--- OUTSIDE RECORDS SUMMARY | 2024-04-05 08:18 | XMS_ITS | Encounter Summary ---
Author Organization [facility] Address [address] [place] [address] Care Team Providers Care Byproducts Operator Name Role Phone Brandon Gutierrez MD Primary Care Provider + [phone] Brandon Gutierrez MD Primary Care Provider + [phone] Brandon Gutierrez MD Unavailable [phone] Kacie Gooden MD Primary Care Provider Sheng Longoria MD Unavailable [phone] [facility], Pcp Primary Care Provider Unavailabl e [facility], Pcp Primary Care Provider Unavailabl e Encounter Details Date Type Department Care Team Description 09/10/2009 Tool Grinding Technician Report Medical Records [address] [place] [address] Chacho Steven MD Social History Tobacco Use Types Packs/Day Years Used Date Smoking Tobacco: Former Comments:quit 1990 Alcohol Use Standard Drinks/Week Comments Not Asked 0 (1 standard drink = 0.6 oz pur e alcohol) Alcohol Habits Answer Date Recorded How often do you have a drink containing alcohol ? Never 04/15/2020 How many drinks containing a lcohol do you have on a typical day when you are drinking? Not asked How often do you have six or more drinks on one occasion? Not asked Sex Assigned at Date Recorded Not on file Job Start Date Occupation Industry Not on file Not on file Not on file documented as of this encounter Plan of Treatment Not on file documented as of this encounter Visit Diagnoses Not on filedocumented in this encounter Care Teams Byproducts Operator Relationship Specialty Start Date End Date Brandon Gutierrez MD [address] [place] [address] [phone] PCP - General 09/15/99 01/11/20 Brandon Gutierrez MD [address] [place] [address] PCP - General 01/12/20 10/21/20 Kacie Gooden MD [address] [place] [address] PCP - General Internal Medicine 10/22/20 11/06/[address] [place] [address] PCP - General Internal Medicine 11/07/21 03/11/[address] [place] [address] PCP - General Internal Medicine 03/12/23 Brandon Gutierrez MD [address] [place] [address] 01/12/20 Sheng Woodward MD [address] [place] [address] [place] [address] Inspector Boiler Cardiovascular Disease 01/15/20 documented as of this encounter
--- OUTSIDE RECORDS SUMMARY | 2024-04-05 08:18 | XMS_ITS | Encounter Summary ---
Author Organization [facility] Address [address] [place] [address] Care Team Providers Care Bobbin Coil Winder Name Role Phone Brandon Gutierrez MD Primary Care Provider + [phone] Brandon Gutierrez MD Unavailable [phone] Kacie Gooden MD Primary Care Provider Sheng Longoria MD Unavailable [phone] [facility], Pcp Primary Care Provider Unavailabl e [facility], Pcp Primary Care Provider Unavailabl e Encounter Details Date Type Department Care Team Description 01/15/2020 Test Skein Winder Report Medical Records [address] [place] [address] Sheng Woodward MD [address] [place] [address] [place] [address] Social History Tobacco Use Types Packs/Day Years Used Date Smoking Tobacco: Former Smokeless Tobacco: Never Comments:quit 1990 Alcohol Use Standard Drinks/Week Comments [...] on filedocumented in this encounter Care Teams Bobbin Coil Winder Relationship Specialty Start Date End Date Brandon Gutierrez MD [address] [place] [address] PCP - General 01/12/20 10/21/20 Kacie oGoden MD [address] [place] [address] PCP - General Internal Medicine 10/22/20 11/06/21 [facility], [address] [place] [address] PCP - General Internal Medicine 11/07/21 03/11/[address] [place] [address] PCP - General Internal Medicine 03/12/23 Brandon Gutierrez MD [address] [place] [address] 01/12/20 Sheng Woodward MD [address] [place] [address] [place] [address] Crate Icer Cardiovascular Disease 01/15/20 documented as of this encounter
--- OUTSIDE RECORDS SUMMARY | 2024-04-05 08:18 | XMS_ITS | Encounter Summary ---
Author Organization [facility] Address [address] [place] [address] Care Team Providers Care Senior Sharepoint Architect Name Role Phone Brandon Gutierrez MD Unavailable [phone] Kacie Gooden MD Primary Care Provider Sheng Longoria MD Unavailable [phone] [facility], Pcp Primary Care Provider Unavailabl e [facility], Pcp Primary Care Provider Unavailabl e Encounter Details Date Type Department Care Team Description 05/02/2021 Shotgun Shell Loading Machine Operator Report Medical Records [address] [place] [address] Oz Parmar MD Social History Tobacco Use Types Packs/Day Years Used Date Smoking Tobacco: Former Cigarettes Q uit: 1990 Smokeless Tobacco: Never Comments:quit 1990 Alcohol Use Standard Drinks/Week Comments Yes 0 (1 standard drink = 0.6 oz pur e alcohol) rare Alcohol Habits Answer Date Recorded How often [...] on filedocumented in this encounter Care Teams Senior Sharepoint Architect Relationship Specialty Start Date End Date Kacie Gooden MD [address] [place] [address] PCP - General Internal Medicine 10/22/20 11/06/21 [facility], [address] [place] [address] PCP - General Internal Medicine 11/07/21 03/11/23 [facility], Pcp [address] [facility] [place] [address] PCP - General Internal Medicine 03/12/23 Brandon Gutierrez MD [address] [place] [address] 01/12/20 Sheng Woodward MD [address] [place] [address] [place] [address] Evaluation Specialist Cardiovascular Disease 01/15/20 documented as of this encounter
--- OUTSIDE RECORDS SUMMARY | 2024-04-05 08:18 | XMS_ITS | Encounter Summary ---
Author Organization [facility] Address [address] [place] [address] Care Team Providers Care Meat Team Lead Name Role Phone Brandon Guteirrez MD Primary Care Provider + [phone] Brandon Gutierrez MD Unavailable [phone] Kacie Gooden MD Primary Care Provider Sheng Longoria MD Unavailable [phone] [facility], Pcp Primary Care Provider Unavailabl e [facility], Pcp Primary Care Provider Unavailabl e Encounter Details Date Type Department Care Team Description 01/15/2020 Oim Consultant Report Medical Records [address] [place] [address] Sheng Woodward MD [address] [place] [address] [place] [address] Social History Tobacco Use Types Packs/Day Years [...] on filedocumented in this encounter Care Teams Meat Team Lead Relationship Specialty Start Date End Date Brandon Gutierrez MD [address] [place] [address] PCP - General 01/12/20 10/21/20 Kacie Gooden MD [address] [place] [address] PCP - General Internal Medicine 10/22/20 11/06/21 [facility], [address] [place] [address] PCP - General Internal Medicine 11/07/21 03/11/[address] [place] [address] PCP - General Internal Medicine 03/12/23 Brandon Gutierrez MD [address] [place] [address] 01/12/20 Sheng Woodward MD [address] [place] [address] [place] [address] Animal Shelter Worker Cardiovascular Disease 01/15/20 documented as of this encounter
--- OUTSIDE RECORDS SUMMARY | 2024-04-05 08:18 | XMS_ITS | Encounter Summary ---
Author Organization [facility] Address [address] [place] [address] Care Team Providers Care Carpenter And Joiner Name Role Phone Brandon Gutierrez MD Primary Care Provider + [phone] Brandon Gutierrez MD Primary Care Provider + [phone] Brandon Gutierrez MD Unavailable [phone] Kacie Gooden MD Primary Care Provider Sheng Longoria MD Unavailable [phone] [facility], Pcp Primary Care Provider Unavailabl e [facility], Pcp Primary Care Provider Unavailabl e Encounter Details Date Type Department Care Team Description 07/25/2009 Truck Operator Report Medical Records [address] [place] [address] Chacho Steven MD Social History Tobacco Use [...] on filedocumented in this encounter Care Teams Carpenter And Joiner Relationship Specialty Start Date End Date Brandon Gutierrez MD [address] [place] [address] [phone] PCP - General 09/15/99 01/11/20 Brandon Gutierrez MD [address] [place] [address] PCP - General 01/12/20 10/21/20 Kacie Gooden MD [address] [place] [address] PCP - General Internal Medicine 10/22/20 11/06/[address] [place] [address] PCP - General Internal Medicine 11/07/21 03/11/[address] [place] [address] PCP - General Internal Medicine 03/12/23 Brandon Gutierrez MD [address] [place] [address] 01/12/20 Sheng Woodward MD [address] [place] [address] [place] [address] Hydroelectric Machinery Mechanic Cardiovascular Disease 01/15/20 documented as of this encounter
--- OUTSIDE RECORDS SUMMARY | 2024-04-05 08:19 | XMS_ITS | Encounter Summary ---
Author Organization [facility] Address [address] [place] [address] Care Team Providers Care Manager Produce Name Role Phone Brandon Gutierrez MD Primary Care Provider + [phone] Brandon Gutierrez MD Unavailable [phone] Kacie Gooden MD Primary Care Provider Sheng Longoria MD Unavailable [phone] [facility], Pcp Primary Care Provider Unavailabl e [facility], Pcp Primary Care Provider Unavailabl e Reason for Visit * Reason Comments E-prescribe Rx Request Encounter Details Date Type Department Care Team Description 10/18/2020 Refill Adult Medicine [address] [address] Brandon Gutierrez MD [address] [place] [address] [phone] E-prescribe Rx Request Social History Tobacco Use Types Packs/Day Years [...] on file documented as of this encounter Miscellaneous Notes * Telephone Encounter - Roberta Mendez M.A. - 10/23/2020 9:48 AM EDT Lab Results Component Value Date NA 138 09/17/2020 K 4.7 09/17/2020 CO2 27 09/17/2020 CL 106 09/17/2020 BUN 11 09/17/2020 CREAT 0.73 09/17/2020 GLU 92 09/17/2020 CA 9.3 09/17/2020 GFR > 60 09/17/2020 Pending appt with Sasha BEY 11/25/20 * Telephone Encounter - Megan Nguyen - 10/22/2020 3:11 PM EDT Patient would like script to be: E-PRESCRIBED/FAXED TO PHARMACY ?? WHEN WAS THE PATIENT'S LAST APPOINTMENT IN ADULT MEDICINE? 03/28/20 ?? WHEN WAS THE LAST TIME THE PATIENT SAW THEIR PCP? N/a ?? Does patient have an upcoming appointment? Yes 11/25/20 ?? (THE MEDICATION REQUESTED IS ON THE MED LIST ABOVE) All of the medications requested were on the CURRENT MEDS list ?? Did you check the Pharmacy information above?: YES ?? Patient wants: 90 -day supply ?? Is this a mail order prescription request ? NO ?? If the refill is from a FAXED refill request what is the RX # listed on the fax? N/A ?? Patients current insurance carrier is: Payor: [place] FFS / Plan: [place] / Product Type: MEDICAID RISK ?? documented in this encounter Plan of Treatment Not on file documented as of this encounter Visit Diagnoses Diagnosis Benign localized prostatic hyperplasia with lower urinary tract symptoms (LUTS) Benign localized hyperplasia of prostate with urinary obstruction and other lower urinary tract symptoms (LUTS) documented in this encounter Care Teams Manager Produce Relationship Specialty Start Date End Date Brandon Gutierrez MD [address] [place] [address] PCP - General 01/12/20 10/21/20 Kacie Gooden MD [address] [place] [address] PCP - General Internal Medicine 10/22/20 11/06/[address] [place] [address] PCP - General Internal Medicine 11/07/21 03/11/[address] [place] [address] PCP - General Internal Medicine 03/12/23 Brandon Gutierrez MD [address] [place] [address] 01/12/20 Sheng Woodward MD [address] [place] [address] [place] [address] Heavy Equipment Operator Apprentice Cardiovascular Disease 01/15/20 documented as of this encounter
--- OUTSIDE RECORDS SUMMARY | 2024-04-05 08:19 | XMS_ITS | Encounter Summary ---
Author Organization [facility] Address [address] [place] [address] Care Team Providers Care Infectious Waste Technician Name Role Phone Brandon Gutierrez MD Primary Care Provider + [phone] Brandon Gutierrez MD Primary Care Provider + [phone] Brandon Gutierrez MD Unavailable [phone] Kacie Gooden MD Primary Care Provider Sheng Longoria MD Unavailable [phone] [facility], Pcp Primary Care Provider Unavailabl e [facility], Pcp Primary Care Provider Unavailabl e Encounter Details Date Type Department Care Team Description 07/21/2017 Orders Only Gastroenterology - [address] [phone] Brandon Gutierrez MD [address] [place] [address] [phone] Special screening for malignant neoplasms, colon Social History Tobacco Use Types Packs/Day Years [...] on file documented as of this encounter Procedures Procedure Name Priority Date/Time Associated Diagnosis Comments CHG BLOOD OCCULT FECAL HGB DETER IA QUAL FECES 1-3 Routine 07/21/2017 11:00 AM EDT Special screening for malignant neoplasms, colon documented in this encounter Results * BLOOD OCCULT QUAL FECAL HEMGLBN (07/21/2017 11:00 AM EDT) OCCULT BLOOD, STOOL neg INTERNAL CONTROL VALID yes Stool 07/21/2017 11:0 0 AM EDT Brandon Gutierrez MD LAB documented in this encounter Visit Diagnoses Diagnosis Special screening for malignant neoplasms, colon documented in this encounter Care Teams Infectious Waste Technician Relationship Specialty Start Date End Date Brandon Gutierrez MD [address] [place] [address] PCP - General 09/15/99 01/11/20 Brandon Gutierrez MD [address] [place] [address] PCP - General 01/12/20 10/21/20 Kacie Gooden MD [address] [place] [address] PCP - General Internal Medicine 10/22/20 11/06/[address] [place] [address] PCP - General Internal Medicine 11/07/21 03/11/[address] [place] [address] PCP - General Internal Medicine 03/12/23 Brandon Gutierrez MD [address] [place] [address] 01/12/20 Sheng Woodward MD [address] [place] [address] [place] [address] Scale Clerk Cardiovascular Disease 01/15/20 documented as of this encounter
--- OUTSIDE RECORDS SUMMARY | 2024-04-05 08:19 | XMS_ITS | Clinical Summary ---
Author Organization [facility] Address [address] [place] [address] Care Team Providers Care Stone Gluer Name Role Phone Brandon Gutierrez MD Unavailable [phone] Sheng Woodward MD Unavailable [phone] [facility], Pcp Primary Care Provider Unavailabl e Allergies No known active allergies Medications Medication Sig Dispensed Refills Start Date End Date Status Multiple Vitamins-Minerals (MULTIVITAMIN ADULT) Tab Take by mouth. 0 Active Ascorbic Acid (VITAMIN C) 500 MG Cap Take by mouth 2 Times Daily. 0 Active Cholecalciferol (VITAMIN D) 2000 units Cap Take by mouth 2 Times Daily. 0 Active B Complex Vitamins (B COMPLEX 100 IJ) Inject as directed. 0 Active Misc Natural Products (BETA-SITOSTEROL PLANT STEROLS) Cap Take by mouth. 0 Ac tive Resveratrol 100 MG Cap Take by mouth. 0 Active niacinamide 500 MG tablet Take 500 mg by mouth daily. 0 Active rosuvastatin (CRESTOR) 20 MG tablet Take 1 Tablet by mouth daily. 90 Tablet 1 05/22/2021 Active bisacodyl (Dulcolax) 5 MG EC tablet Take 4 tabs by mouth right before beginning bowel prep. Follow instructions given by office for timing. 4 Tablet 0 06/18/2021 Active polyethylene glycol (GoLYTELY,NuLYTELY ) 236 g suspension Take 4 L by mouth once for 1 dose. (May substitute any PEG) Mix prep according to directions. Drink one 8oz glass at your own pace until half the gallon is completed. Rest and then finish the second half, one 8oz glass at your own pace until gallon is complete. Follow directions given by office for timing. 4000 mL 0 06/18/2021 Active tamsulosin (FLOMAX) 0.4 MG 24 hr capsuleIndications :Benign localized prostatic hyperplasia with lower urinary tract symptoms (LUTS) TAKE 1 CAPSULE BY MOUTH DAILY. TAKE 30 MINS AFTER SAME MEAL EVERY DAY. 30 Capsule 0 10/07/2021 Active Active Problems Problem Noted Date PVC (premature ventricular contraction) 04/08/2021 Overview: Holter monitor revealing occasional PVCs and ventricular bigeminy and trigeminy with rare couplets and a few triplets. Seen with [facility] cardiology. PVC burden quite low. Reassurance provided. No further intervention warranted. 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 Primary osteoarthritis of both hands Prostatism 11/11/2011 Mixed hyperlipidemia 11/22/2007 Overview: Goal less than 70 per [facility] cardiology Immunizations Name Administration Dates Next Due COVID-19 (SmartyPants Vitamins) Pt Reported 02/20/2021, 021,05/30/2020 Influenza Vaccine-preservati ve Free-quadrivalent 4 Years 12/15/2019,05/10/2019 Influenza vaccine high dose age 65 and over 03/01 TD (STATE SUPPLIED FOR ADULTS AND CHILDREN) 09/30 Tdap 11/22/2007 Family History Medical History Relation Name Comments Lymphoma Brother Brain Cancer Father Cataract Father AAA Mother Cancer of the Breast Mother Autoimmune Other nephew Thyroid Disorder Sister 1 Hypercholesterolemia Son rosacea Son Blindness Negative Hx Glaucoma Negative Hx Macular Degeneration Negative Hx Strabismus Negative Hx Relation Name Status Comments Brother Alive cancer hodgkins disease cad stent valve Father brain cancer Mother Other nephew Alive Sister 1 Alive Sister 2 Alive Son Alive Social History Tobacco Use Types Packs/Day Years [...] file Not on file Not on file Last Filed Vital Signs Vital Sign Reading Time Taken Comments Blood Pressure 124/72 03/12/2021 2:39 PM EST Pulse 64 03/12/2021 2:39 PM EST Temperature 36 ??C (96.8 ??F) 03/12/2021 2:39 PM EST Respiratory Rate 14 03/12/2021 2:39 PM EST Oxygen Saturation 100% 03/28/2020 1:48 PM EST Inhaled Oxygen Concentration - - Weight 77.1 kg (170 lb) 03/12/2021 2:39 PM EST Height 173.4 cm (5' 8.25 ) 03/12/2021 2:39 PM ES T Body Mass Index 25.66 03/12/2021 2:39 PM EST Plan of Treatment Health Maintenance Due Date Last Done Comments SHINGLES VACCINE (1 of 2) 09/25/2005 COLON CANCER SCREEN WITH STO OL CARD 07/21/2018 07/21/2017, 04/27/2001 ABDOMINAL AORTIC ANEURYSM (A AA) SCREENING 09/25/2020 01/15/2000 PNEUMOCOCCAL VACCINE (1 - PCV) 09/25/2020 DEPRESSION SCREEN 03/12/2022 03/12/2021 (Completed) FALL RISK ASSESSMENT 03/12/2022 03/12/2021 Covid-19 Vaccine (4 - 2022-2 4 season) 2023 02/20/2021, 06/21/2020, 05/30/2020 INFLUENZA (#1) 2023 03/12/2021, 11/29, 05/10/2019 BMI CHECK/ADVISE 03/01/2024 03/12/2021, 01/2022 (Completed), 06/25/2018, Additional history exists DEPRESSION SCREENING/FOLLOWUP 03/01/2024 (Completed), 05/03/2020 CHOLESTEROL SCREENING 03/12/2026 03/12/2021 , 09/17/2020, 12/05/2019, Additional history exists DTAP/TDAP/TD (3 - Td or Tdap) 10/23/2029 10/24/2019, 11/22/2007 HEPATITIS C SCREENING Completed 03/12/2021 Care Teams Stone Gluer Relationship Specialty Start Date End Date [facility], Pcp [place] [address] PCP - General Internal Medicine 03/12/23 Brandon Gutierrez MD [address] [place] [address] 01/12/20 Sheng Woodward MD [address] [place] [address] [place] [address] Senior Examiner Cardiovascular Disease 01/15/20
--- OUTSIDE RECORDS SUMMARY | 2024-04-05 08:19 | XMS_ITS | Encounter Summary ---
Author Organization [facility] Address [address] [place] [address] Care Team Providers Care Thermo Processor Name Role Phone Brandon Gutierrez MD Primary Care Provider + [phone] Brandon Gutierrez MD Primary Care Provider + [phone] Brandon Gutierrez MD Unavailable [phone] Kacie Gooden MD Primary Care Provider Sheng Longoria MD Unavailable [phone] [facility], Pcp Primary Care Provider Unavailabl e [facility], Pcp Primary Care Provider Unavailabl e Encounter Details Date Type Department Care Team Description 12/26/2018 Hospital Medical Records [address] [place] [address] Kalpana Rowe MD [address] [place] [address] Social History Tobacco Use Types Packs/Day Years [...] on filedocumented in this encounter Care Teams Thermo Processor Relationship Specialty Start Date End Date Brandon Gutierrez MD [address] [place] [address] PCP - General 09/15/99 01/11/20 Brandon Gutierrez MD [address] [place] [address] PCP - General 01/12/20 10/21/20 Kacie Gooden MD [address] [place] [address] PCP - General Internal Medicine 10/22/20 11/06/21 [facility], [address] [place] [address] PCP - General Internal Medicine 11/07/21 03/11/[address] [place] [address] PCP - General Internal Medicine 03/12/23 Brandon Gutierrez MD [address] [place] [address] 01/12/20 Sheng Woodward MD [address] [place] [address] [place] [address] Sole Leveler Cardiovascular Disease 01/15/20 documented as of this encounter
--- OUTSIDE RECORDS SUMMARY | 2024-04-05 08:19 | XMS_ITS | Encounter Summary ---
Author Organization [facility] Address [address] [place] [address] Care Team Providers Care Hospital Educator Name Role Phone Brandon Gutierrez MD Primary Care Provider + [phone] Brandon Gutierrez MD Primary Care Provider + [phone] Brandon Gutierrez MD Unavailable [phone] Kacie Gooden MD Primary Care Provider Sheng Longoria MD Unavailable [phone] [facility], Pcp Primary Care Provider Unavailabl e [facility], Pcp Primary Care Provider Unavailabl e Encounter Details Date Type Department Care Team Description 06/21/2017 Pt. Non Urgent Medical Question Adult Medicine [address] [address] Brandon Gutierrez MD [address] [place] [address] Social History Tobacco Use Types Packs/Day Years [...] on file documented as of this encounter Progress Notes * Eliane ColbertPMaryanN. - 06/21/2017 10:06 AM EDTFrom: Leno Wilder To: Brandon Gutierrez MD Sent: 06/21/2017 9:43 AM EDT Subject: Lipoprotein Test Hi Dr, I read you note on the results of the Lipoprotein test. Looks like this is the measurement amount of APO 1 in my HDL Cholesterol. I was more interested in the amount Lp(a) because it is related to the LDL Cholesterol. Was that part of the test in this Lipoprotein Panel just still outstanding? This Lp(a) test is apparently a better indicator of risk of heart disease and stroke, which is prevalent in my family, My Dad and Brother both had strokes. I've cut a lot of Carbs our of my diet, which can have the affect of raising my LDL, which has made me look harder the amount of this particular Lipoprotein in my blood. I also know that this test may not be covered in my insurance. That's OK if so, I can get this test done in an independent lab if I choose. Thanks Much, Leno. documented in this encounter Plan of Treatment Not on file documented as of this encounter Visit Diagnoses Not on filedocumented in this encounter Care Teams Hospital Educator Relationship Specialty Start Date End Date Brandon Gutierrez MD [address] [place] [address] PCP - General 09/15/99 01/11/20 Brandon Gutierrez MD [address] [place] [address] PCP - General 01/12/20 10/21/20 Kacie Gooden MD [address] [place] [address] PCP - General Internal Medicine 10/22/20 11/06/[address] [place] [address] PCP - General Internal Medicine 11/07/21 03/11/[address] [place] [address] PCP - General Internal Medicine 03/12/23 Brandon Gutierrez MD [address] [place] [address] 01/12/20 Sheng Woodward MD [address] [place] [address] Dr Romero [address] [place] [address] Region Manager Cardiovascular Disease 01/15/20 documented as of this encounter
--- OUTSIDE RECORDS SUMMARY | 2024-04-05 08:19 | XMS_ITS | Encounter Summary ---
Author Organization [facility] Address [address] [place] [address] Care Team Providers Care Computer Customer Support Specialist Name Role Phone Brandon Gutierrez MD Unavailable [phone] Kacie Gooden MD Primary Care Provider Sheng Longoria MD Unavailable [phone] Community, Pcp Primary Care Provider Unavailabl e Community, Pcp Primary Care Provider Unavailabl e Reason for Visit * Reason Onset Date Comments Medication 06/18/2021 Encounter Details Date Type Department Care Team Description 06/18/2021 Refill Gastroenterology - [address] [place] [address] Noam Parker MD [address] [place] [address] [id number] Medication Social History Tobacco Use Types Packs/Day Years [...] on filedocumented in this encounter Care Teams Computer Customer Support Specialist Relationship Specialty Start Date End Date Kacie Gooden MD [address] [place] [address] PCP - General Internal Medicine 10/22/20 11/06/[address] [place] [address] PCP - General Internal Medicine 11/07/21 03/11/[address] [place] [address] PCP - General Internal Medicine 03/12/23 Brandon Gtuierrez MD [address] [place] [address] 01/12/20 Sheng Woodward MD [address] [place] [address] [place] [address] Equipment Or Machinery Cleaner Cardiovascular Disease 01/15/20 documented as of this encounter
[2024-04-05 09:51] LABS: MANUAL DIFF FLAG NO
[2024-04-05 09:57] LABS: Basophils Absolute Auto 0.1 X10*3/uL (0.0-0.2); Basophils Percent Auto 1.1 % (0-2); Eosinophils Absolute Auto 0.3 X10*3/uL (0.0-0.4); Eosinophils Percent Auto 3.4 % (0-4); Hematocrit 44.1 % (42.0-52.0); Hemoglobin 14.3 g/dl (14.0-18.0); Imm Gran Abs Auto 0.03 X10*3/uL (0.00-0.03); Imm Gran Pct Auto 0.3 % (0.0-0.4); Lymphocytes Absolute Auto 3.2 X10*3/uL (1.2-4.9); Lymphocytes Percent Auto 36.3 % (20-40); Mean Corpuscular HGB Conc 32.4 g/dl (31.0-36.0); Mean Corpuscular Hemoglobin 28.9 pg (27.0-33.0); Mean Corpuscular Volume 89.3 fL (80.0-98.0); Mean Platelet Volume 10.7 fL (9.4-12.4); Monocytes Absolute Auto 0.6 X10*3/uL (0.1-1.2); Monocytes Percent Auto 6.8 % (2-11); Neutrophils Absolute Auto 4.5 x10*3/uL (2.0-8.3); Neutrophils Percent Auto 52.1 % (45-73); Platelet Count 209 X10*3/uL (160-400); Red Blood Count 4.94 X10*6/uL (4.60-5.80); Red Cell Distribution Width 15.7 % (11.0-16.0); White Blood Count 8.7 X10*3/uL (4.8-10.8)
[2024-04-05 10:25] LABS: Alanine Aminotransferase 27 U/L (0-40); Albumin Level 3.9 g/dL (3.5-5.0); Alkaline Phosphatase 59 U/L (39-117); Anion Gap 10 (12-20); Aspartate Amino Transferase 19 U/L (5-37); Bilirubin Total 0.2 mg/dL (0.0-1.0); Blood Urea Nitrogen 14 mg/dL (9-16); C Reactive Protein 0.18 mg/dL (< or = 0.50); Calcium 8.7 mg/dL (8.4-10.2); Carbon Dioxide 25 mmol/L (22-29); Chloride 109 mmol/L (96-108); Estimated Glomerular Filt Rate > 60; Glucose Random 97 mg/dL (60-115); Potassium 4.1 mmol/L (3.3-5.1); Sodium 140 mmol/L (135-145); Total Protein 6.9 g/dL (6.5-8.0)
[2024-04-05 10:42] LABS: Erythrocyte Sedimentation Rate 4 MM/HR (0-15)
== END 2024-04-05 08:16 | disposition home or self-care (01) ==
LOC: HO.HMGCLDS 08:15
PROVIDERS: PCP Internal Medicine; Visit Provider Student in an Organized Health Care Education/Training Program
DX: M06.00 Rheumatoid arthritis without rheumatoid factor, unspecified site (principal); Z79.631 Long term (current) use of antimetabolite agent
CPT/HCPCS: 36415; 80053; 85025; 85652; 86140

== ENCOUNTER 2024-04-12 07:40 | Outpatient (AMB) | payer MEDICARE, SELFPAY ==
[2024-04-12 07:51] VITALS: BP 118/72; PULSE 69; O2SAT 98; BMI 28.3
--- NOTE | 2024-04-12 07:51 | MHC.OFFVIS ---
Vital Signs 04/12/24 07:51 Height 5 ft 8 in Weight 186 lb 2 oz BMI 28.3 BP 118/72 Pulse 69 Pulse Source Pulse Oximeter Pulse Oximetry (%) 98 Oxygen Delivery Method Room Air Intake Visit Reasons: RA/CM Intake Note: Patient presents for RA/CM Allergies No Known Allergies Allergy (Verified 04/12/24 07:57) HPI HPI RA/CM: Details: Hand swelling has improved. MS hours. Knee are swelling. Hard to go down stairs. Feels a tendon is poopped out of right arm. PFSH Medical History History of rheumatoid arthritis Basal cell carcinoma, face Hyperlipidemia Prostatism Osteoarthritis of both hands BPH (benign prostatic hyperplasia) Enlarged prostate Surgical History H/O wrist surgery History of carpal tunnel surgery Family History Mother Heart disease Graves disease Father Brain cancer PMR (polymyalgia rheumatica) Social History Household Members: Spouse Housing: House Alcohol intake: former Patient Tobacco Use Status: Former Tobacco user Years Smoked: 10 Review of Systems Const All systems reviewed & are unremarkable except as noted in HPI and below Physical Exam Vital Signs: Last Vital Signs Pulse 69 04/12/24 07:51 BP 118/72 04/12/24 07:51 Pulse Ox 98 04/12/24 07:51 Oxygen Delivery Method Room Air 04/12/24 07:51 BMI result Body Mass Index 28.3 Const Other: General: Comfortable CVS: RRR Respiratory: clear to auscultation bilaterally. 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 Right 4th PIP is swollen. Ulnar deviation of MCPs on the right hand. He has subluxation of left 5th MCP on an outstretched hand. Tender to palpate right axillary region without any mass noted. Pain in right shoulder with abduction. Range of motion of upper extremities and lower extremity is full. He has bilateral MTP synovitis present with tenderness on palpation. Assessment & Plan Assessment & Plan (1) Seronegative rheumatoid arthritis: Comment: Inflammatory arthritis is better managed on low-dose prednisone and since starting methotrexate in January. We discussed importance of treatment with DMARD therapy and its benefit in further reducing inflammation and preventing progression of disease. Patient is experiencing constipation on methotrexate. Recent labs reviewed with patient. Answered patient's questions to his satisfaction. Code(s): M06.00 - Rheumatoid arthritis without rheumatoid factor, unspecified site Category: Medical Plan: Continue methotrexate 20 mg once weekly split dose. He declined changing methotrexate PO to subcutaneous injection this visit Continue folic acid 1 mg daily He will decrease prednisone to 2.5 mg for 1 week then discontinue He will call office if joint symptoms worsened We discussed the importance of having a healthy diet. I recommended Mediterranean diet with it is evidence in reducing inflammation and benefit in autoimmune disease He will need labs for drug monitoring on high-risk medication methotrexate every 3 months. 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 We discussed conservative management. He has history of full right shoulder rotator cuff tendon tear that has previously been managed with physical therapy. 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
== END 2024-04-12 08:43 | disposition home or self-care (01) ==
PROVIDERS: PCP Internal Medicine; Visit Provider Internal Medicine Rheumatology
DX: M06.09 Rheumatoid arthritis without rheumatoid factor, multiple sites (principal); Z79.631 Long term (current) use of antimetabolite agent; M79.601 Pain in right arm
CPT/HCPCS: 99215; G2211

== ENCOUNTER → 2024-04-12 07:40 | Outpatient (BNVA) | payer MEDICARE, SELFPAY | PROVIDERS: PCP Internal Medicine; Visit Provider Internal Medicine Rheumatology | DX: M06.00 Rheumatoid arthritis without rheumatoid factor, unspecified site (principal); M79.601 Pain in right arm; Z79.631 Long term (current) use of antimetabolite agent | CPT/HCPCS: 99212 ==

== ENCOUNTER 2024-05-23 14:41 | Outpatient (AMB) | payer MEDICARE, SELFPAY ==
--- NOTE | 2024-05-23 14:46 | MHC.OFFVIS ---
Vital Signs 05/23/24 14:53 Height 5 ft 8 in Weight 185 lb 13.595 oz BMI 28.3 BP 150/82 H Blood Pressure Location Lt brachial Position Sitting Pulse 82 Pulse Source Pulse Oximeter Pulse Oximetry (%) 99 Oxygen Delivery Method Room Air Intake Visit Reasons: RA (scheduled per MD spring) Intake Note: Pt presents today for RA. pt also want to discuss prednisone. Legs and feet are swollen with body stiffness. Accompanied by: Spouse Allergies No Known Allergies Allergy (Verified 05/23/24 14:56) HPI HPI RA (scheduled per MD spring): Details: He tapered off of prednisone in April. He continues to have pain with morning stiffness lasting hours. He has a hard time getting up. He has not been as active as he used to be. He spends a lot of time sitting. No recent infections. [facility] Medical History History of rheumatoid arthritis Basal cell carcinoma, face Hyperlipidemia Prostatism Osteoarthritis of both hands BPH (benign prostatic hyperplasia) Enlarged prostate Surgical History H/O wrist surgery History of carpal tunnel surgery Family History Mother Heart disease Graves disease Father Brain cancer PMR (polymyalgia rheumatica) Social History Household Members: Spouse Housing: House Alcohol intake: former Patient Tobacco Use Status: Former Tobacco user Years Smoked: 10 Review of Systems Const All systems reviewed & are unremarkable except as noted in HPI and below Physical Exam Vital Signs: Last Vital Signs Pulse 82 05/23/24 14:53 BP 150/82 H 05/23/24 14:53 Pulse Ox 99 05/23/24 14:53 Oxygen Delivery Method Room Air 05/23/24 14:53 BMI result Body Mass Index 28.3 Const Other: General: Comfortable CVS: RRR Respiratory: clear to auscultation bilaterally. Good respiratory effort Skin: No lesions seen MSK: No tenderness of joints in his hands or wrists. Ulnar deviation of MCPs bilateral. He has right Z thumb. He has subluxation of left 5th MCP on an outstretched hand. Normal range of motion of upper extremity and lower extremity. Slight tenderness and synovitis of bilateral ankle. He has bilateral MTP synovitis present with tenderness on palpation. Assessment & Plan Assessment & Plan (1) Seronegative rheumatoid arthritis: Comment: Inflammatory arthritis is uncontrolled with monotherapy with methotrexate. We discussed add on DMARD therapy. Patient has had reluctance to be on DMARD therapy. We discussed the importance of long-term DMARD therapy, especially in the setting with patient having deforming rheumatoid arthritis. Discussed side effects, benefits and drug monitoring of hydroxychloroquine. Answered patient's questions to his satisfaction. He agreed to try a course of prednisone. Rheumatology history: Seronegative. Deforming. Onset 2010 he had abrupt onset inflammatory arthritis. He was started on prednisone and methotrexate. About a year later he broke his left wrist, he held methotrexate perioperatively. After the surgery however his symptoms seemed to improve on their own and he discontinued his methotrexate. RA relapsed 11/2023. Methotrexate 01/2024-. Code(s): M06.00 - Rheumatoid arthritis without rheumatoid factor, unspecified site Category: Medical Plan: Continue methotrexate 20 mg once weekly split dose. 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: Code(s): Z79.631 - intermediate (current) use of antimetabolite agent Category: Medical Plan: See above Orders: Orders Alanine Aminotransferase 1 Month Z79.60 - precision lens generator (current) use of unspecified immunomodulators and immunosuppressants Complete Blood Count Auto Diff 1 Month Z79.60 - intermediate (current) use of unspecified immunomodulators and immunosuppressants Creatinine 1 Month Z79.60 - intermediate (current) use of unspecified immunomodulators and immunosuppressants Aspartate Amino Transferase 1 Month Z79.60 - precision lens generator (current) use of unspecified immunomodulators and immunosuppressants Erythrocyte Sedimentation Rate 1 Month Z79.899 - Other vp director of creative strategy (current) drug therapy C Reactive Protein 1 Month Z79.899 - Other usp (current) drug therapy Medications: New prednisone Take 4 tablets daily for 7 days, 3 tablets daily for 7 days, 2 tablets daily for 7 days, 1 tablet daily for 7 days then stop. Take prednisone with food. 5 mg PO DIRECTED 70 tabs 0RF hydroxychloroquine 400 mg (2 x 200 mg) PO DAILY 60 tabs 2RF Coding Level of Care Code Est Pt Level 5 (24261) Complex EM visit Add On G2211 Diagnoses Seronegative rheumatoid arthritis M06.00 precision lens generator methotrexate user Z79.631 Time Spent (min) 46
[2024-05-23 14:53] VITALS: BP 150/82; PULSE 82; O2SAT 99; BMI 28.3
== END 2024-05-23 15:43 | disposition home or self-care (01) ==
LOC: HO.RHES 14:41
PROVIDERS: PCP Internal Medicine; Visit Provider Internal Medicine Rheumatology
DX: M06.09 Rheumatoid arthritis without rheumatoid factor, multiple sites (principal); Z79.631 Long term (current) use of antimetabolite agent
CPT/HCPCS: 99215; G2211

== ENCOUNTER → 2024-05-23 14:41 | Outpatient (BNVA) | payer MEDICARE, SELFPAY | PROVIDERS: PCP Internal Medicine; Visit Provider Internal Medicine Rheumatology | DX: M06.00 Rheumatoid arthritis without rheumatoid factor, unspecified site (principal); Z79.631 Long term (current) use of antimetabolite agent; Z79.60 Long term (current) use of unspecified immunomodulators and immunosuppressants; Z79.899 Other long term (current) drug therapy | CPT/HCPCS: 99212 ==

== ENCOUNTER 2024-07-17 11:19 | Outpatient (REF) | payer MEDICARE, SELFPAY ==
--- OUTSIDE RECORDS SUMMARY | 2024-07-17 12:02 | XMS_ITS | Encounter Summary ---
Author Organization [facility] Address [address] [place] [address] Care Team Providers Care Offset Lithographic Press Operator Name Role Phone Brandon Gutierrez MD Primary Care Provider + [phone] Brandon Gutierrez MD Primary Care Provider + [phone] Brandon Gutierrez MD Unavailable [phone] Kacie Gooden MD Primary Care Provider Sheng Longoria MD Unavailable [phone] Community, Pcp Primary Care Provider Unavailabl e Community, Pcp Primary Care Provider Unavailabl e Encounter Details Date Type Department Care Team Description 12/26/2018 Hospital Medical Records [address] [place] [address] Kalpana Rowe MD [address] [place] [address] Social History Tobacco Use Types Packs/Day Years [...] on filedocumented in this encounter Care Teams Offset Lithographic Press Operator Relationship Specialty Start Date End Date Brandon Gutierrez MD [address] [place] [address] PCP - General 09/15/99 01/11/20 Brandon Gutierrez MD [address] [place] [address] PCP - General 01/12/20 10/21/20 Kacie Gooden MD [address] [place] [address] PCP - General Internal Medicine 10/22/20 11/06/21 [facility], [address] [place] [address] PCP - General Internal Medicine 11/07/21 03/11/[address] [place] [address] PCP - General Internal Medicine 03/12/23 Brandon Gutierrez MD [address] [place] [address] 01/12/20 Sheng Woodward MD [address] [place] [address] [place] [address] Grout Machine Tender Cardiovascular Disease 01/15/20 documented as of this encounter
--- OUTSIDE RECORDS SUMMARY | 2024-07-17 12:02 | XMS_ITS | Clinical Summary ---
Author Organization [facility] Address [address] [place] [address] Care Team Providers Care Merchant Seaman Name Role Phone Brandon Gutierrez MD Unavailable [phone] Sheng Woodward MD Unavailable [phone] [facility], Pcp Primary Care Provider Unavailabl e Allergies [...] couplets and a few triplets. Seen with [facility] cardiology. PVC burden quite low. Reassurance provided. No further intervention warranted. 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 Primary osteoarthritis of both hands Prostatism 11/11/2011 Mixed hyperlipidemia 11/22/2007 Overview: Goal less than 70 per [facility] cardiology Immunizations Name Administration Dates Next Due COVID-19 ([employer]) Pt Reported 02/20/2021, 021,05/30/2020 Influenza Vaccine-preservati ve [...] 2022-2 4 season) 2023 02/20/2021, 06/21/2020, 05/30/2020 BMI CHECK/ADVISE 03/01/2024 03/12/2021, 01/2022 (Completed), 06/25/2018, Additional history exists DEPRESSION SCREENING/FOLLOWUP 03/01/2024 (Completed), 05/03/2020 INFLUENZA (Season Ended) 2024 022, 12/15/2019, 05/10/2019 CHOLESTEROL SCREENING 03/12/2026 03/12/2021 , 09/17/2020, 12/05/2019, Additional history exists DTAP/TDAP/TD (3 - Td or Tdap) 10/23/2029 10/24/2019, 11/22/2007 HEPATITIS C SCREENING Completed 03/12/2021 Care Teams Merchant Seaman Relationship Specialty Start Date End Date Community, Pcp Medical [address] [place] [address] PCP - General Internal Medicine 03/12/23 Brandon Gutierrez MD [address] [place] [address] 01/12/20 Sheng Woodward MD [address] [place] [address] [address] [place] [address] Retail Inventory Control Clerk Cardiovascular Disease 01/15/20
--- OUTSIDE RECORDS SUMMARY | 2024-07-17 12:02 | XMS_ITS | Encounter Summary ---
Author Organization [facility] Address [address] [place] [address] Care Team Providers Care Janitorial Cleaner Name Role Phone Brandon Gutierrez MD Unavailable [phone] Kacie Gooden MD Primary Care Provider Sheng Longoria MD Unavailable [phone] [facility], Pcp Primary Care Provider Unavailabl e [facility], Pcp Primary Care Provider Unavailabl e Encounter Details Date Type Department Care Team Description 05/02/2021 Heavy Equipment Service Manager Report Medical Records [address] [place] [address] Oz Parmar MD Social History Tobacco Use [...] on filedocumented in this encounter Care Teams Janitorial Cleaner Relationship Specialty Start Date End Date Kacie Gooden MD [address] [place] [address] PCP - General Internal Medicine 10/22/20 11/06/21 [facility], [address] [place] [address] PCP - General Internal Medicine 11/07/21 03/11/23 Community, Pcp [address] [facility] [place] [address] PCP - General Internal Medicine 03/12/23 Brandon Gutierrez MD [address] [place] [address] 01/12/20 Sheng Woodward MD [address] [place] [address] [place] [address] Packaging Manager Cardiovascular Disease 01/15/20 documented as of this encounter
--- OUTSIDE RECORDS SUMMARY | 2024-07-17 12:02 | XMS_ITS | Encounter Summary ---
Author Organization [facility] Address [address] [place] [address] Care Team Providers Care Dampproofer Name Role Phone Brandon Gutierrez MD Primary Care Provider + [phone] Brandon Gutierrez MD Unavailable [phone] Kacie Gooden MD Primary Care Provider Sheng Longoria MD Unavailable [phone] [facility], Pcp Primary Care Provider Unavailabl e [facility], Pcp Primary Care Provider Unavaillifepoint health e Encounter Details Date Type Department Care Team Description 05/02/2020 Pt. Non Urgent Medical Question Adult Medicine [address] [address] Brandon Gutierrez MD [address] [place] [address] Social History Tobacco Use Types Packs/Day Years [...] file Not on file Not on file COVID-19 Exposure Response Date Recorded In the last month, have you been in contact with someone who was confirmed or suspected to have Coronavirus / COVID-19? No / Unsure 04/15/2020 1:57 PM EST documented as of this encounter Miscellaneous Notes * Telephone Encounter - Cinda Poe M.A. - 05/02/2020 4:46 PM ESTFrom: Leno Wilder To: Brandon Gutierrez MD Sent: 05/02/2020 4:35 PM EST Subject: Prescription Hi Dr, I will add that if you can prescribe an ADD med, I'm fine with that as well. Thanks, Leno. documented in this encounter Plan of Treatment Not on file documented as of this encounter Visit Diagnoses Not on filedocumented in this encounter Care Teams Dampproofer Relationship Specialty Start Date End Date Brandon Gutierrez MD [address] [place] [address] PCP - General 01/12/20 10/21/20 Kacie Gooden MD [address] [place] [address] PCP - General Internal Medicine 10/22/20 11/06/[address] [place] [address] PCP - General Internal Medicine 11/07/21 03/11/[address] [place] [address] PCP - General Internal Medicine 03/12/23 Brandon Gutierrez MD [address] [place] [address] 01/12/20 Sheng Woodward MD [address] [place] [address] [place] [address] Supervisor Electrolytic Tinning Cardiovascular Disease 01/15/20 documented as of this encounter
--- OUTSIDE RECORDS SUMMARY | 2024-07-17 12:02 | XMS_ITS | Encounter Summary ---
Author Organization [facility] Address [address] [place] [address] Care Team Providers Care Rn Peritoneal Dialysis Name Role Phone Brandon Gutierrez MD Primary Care Provider + [phone] Brandon Gutierrez MD Primary Care Provider + [phone] Brandon Gutierrez MD Unavailable [phone] Kacie Gooden MD Primary Care Provider Sheng Longoria MD Unavailable [phone] Community, Pcp Primary Care Provider Unavailabl e [facility], Pcp Primary Care Provider Unavailabl e Encounter Details Date Type Department Care Team Description 11/18/2009 Inventory Control Planner Report Medical Records [address] [place] [address] Abstract, Provider Social History Tobacco Use Types Packs/Day Years [...] on filedocumented in this encounter Care Teams Rn Peritoneal Dialysis Relationship Specialty Start Date End Date Brandon Gutierrez MD [address] [place] [address] PCP - General 09/15/99 01/11/20 Brandon Gutierrez MD [address] [place] [address] PCP - General 01/12/20 10/21/20 Kacie Gooden MD [address] [place] [address] PCP - General Internal Medicine 10/22/20 11/06/[address] [place] [address] PCP - General Internal Medicine 11/07/21 03/11/[address] [place] [address] PCP - General Internal Medicine 03/12/23 Brandon Gutierrez MD [address] [place] [address] 01/12/20 Sheng Woodward MD [address] [place] [address] [place] [address] Roll Threader Operator Cardiovascular Disease 01/15/20 documented as of this encounter
--- OUTSIDE RECORDS SUMMARY | 2024-07-17 12:02 | XMS_ITS | Encounter Summary ---
Author Organization [facility] Address [address] [place] [address] Care Team Providers Care Skull Chopper Name Role Phone Brandon Gutierrez MD Primary Care Provider + [phone] Brandon Gutierrez MD Primary Care Provider + [phone] Brandon Gutierrez MD Unavailable [phone] Kacie Gooden MD Primary Care Provider Sheng Longoria MD Unavailable [phone] Community, Pcp Primary Care Provider Unavailabl e Community, Pcp Primary Care Provider Unavailabl e Encounter Details Date Type Department Care Team Description 11/07/2019 Telephone Gastroenterology - [address] [place] [address] Brandon Gutierrez MD [address] [place] [address] Social History Tobacco Use Types Packs/Day Years [...] encounter Miscellaneous Notes * Telephone Encounter - Diamond Zuleta - 11/07/2019 9:40 AM EDT All attempts to schedule a GI appointment for Screening Colonoscopy have been exhausted, thank you documented in this encounter Plan of Treatment Not on file documented as of this encounter Visit Diagnoses Not on filedocumented in this encounter Care Teams Skull Chopper Relationship Specialty Start Date End Date Brandon Gutierrez MD [address] [place] [address] PCP - General 09/15/99 01/11/20 Brandon Gutierrez MD [address] [place] [address] PCP - General 01/12/20 10/21/20 Kacie Gooden MD [address] [place] [address] PCP - General Internal Medicine 10/22/20 11/06/[address] [place] [address] PCP - General Internal Medicine 11/07/21 03/11/[address] [place] [address] PCP - General Internal Medicine 03/12/23 Brandon Gutierrez MD [address] [place] [address] 01/12/20 Sheng Woodward MD [address] [place] [address] [place] [address] Consumer Lender Cardiovascular Disease 01/15/20 documented as of this encounter
--- OUTSIDE RECORDS SUMMARY | 2024-07-17 12:02 | XMS_ITS | Encounter Summary ---
Author Organization [facility] Address [address] [place] [address] Care Team Providers Care Dermatology Nurse Practitioner Name Role Phone Brandon Gutierrez MD Primary Care Provider + [phone] Brandon Gutierrez MD Primary Care Provider + [phone] Brandon Gutierrez MD Unavailable [phone] Kacie Gooden MD Primary Care Provider Sheng Longoria MD Unavailable [phone] Community, Pcp Primary Care Provider Unavailabl e Community, Pcp Primary Care Provider Unavailabl e Encounter Details Date Type Department Care Team Description 01/05/2012 Telephone Urology [address] [place], [place] [phone] Cosme Astorga MD Social History Tobacco Use Types Packs/Day [...] on filedocumented in this encounter Care Teams Dermatology Nurse Practitioner Relationship Specialty Start Date End Date Brandon Gutierrez MD [address] [place], [place] [phone] PCP - General 09/15/99 01/11/20 Brandon Gutierrez MD [address] [place] [address] PCP - General 01/12/20 10/21/20 Kacie Gooden MD [address] [place] [address] PCP - General Internal Medicine 10/22/20 11/06/[address] [place] [address] PCP - General Internal Medicine 11/07/21 03/11/[address] [place] [address] PCP - General Internal Medicine 03/12/23 Brandon Gutierrez MD [address] [place] [address] 01/12/20 Sheng Woodward MD [address] [place] [address] [place] [address] Tuft Machine Operator Cardiovascular Disease 01/15/20 documented as of this encounter
--- OUTSIDE RECORDS SUMMARY | 2024-07-17 12:02 | XMS_ITS | Encounter Summary ---
Author Organization [facility] Address [address] [place] [address] Care Team Providers Care Utility Agent Name Role Phone Brandon Gutierrez MD Primary Care Provider + [phone] Brandon Gutierrez MD Primary Care Provider + [phone] Brandon Gutierrez MD Unavailable [phone] Kacie Gooden MD Primary Care Provider Sheng Longoria MD Unavailable [phone] [facility], Pcp Primary Care Provider Unavailabl e [facility], Pcp Primary Care Provider Unavailabl e Encounter Details Date Type Department Care Team Description 04/14/2010 Cyber Security Systems Engineer Report Medical Records [address] [place] [id number] Jasvir Curran MD Social History Tobacco Use Types Packs/Day [...] on filedocumented in this encounter Care Teams Utility Agent Relationship Specialty Start Date End Date Brandon Gutierrez MD [address] [place] [address] [phone] PCP - General 09/15/99 01/11/20 Brandon Gutierrez MD [address] [place] [address] PCP - General 01/12/20 10/21/20 Kacie Gooden MD [address] [place] [address] PCP - General Internal Medicine 10/22/20 11/06/[address] [place] [address] PCP - General Internal Medicine 11/07/21 03/11/[address] [place] [address] PCP - General Internal Medicine 03/12/23 Brandon Gutierrez MD [address] [place] [address] 01/12/20 Sheng Woodward MD [address] [place] [address] [place] [address] Ssas Developer Cardiovascular Disease 01/15/20 documented as of this encounter
--- OUTSIDE RECORDS SUMMARY | 2024-07-17 12:02 | XMS_ITS | Encounter Summary ---
Author Organization [facility] Address [address] [place] [address] Care Team Providers Care Store Promoter Name Role Phone Brandon Gutierrez MD Primary Care Provider + [phone] Brandon Gutierrez MD Unavailable [phone] Kacie Gooden MD Primary Care Provider Sheng Longoria MD Unavailable [phone] [facility], Pcp Primary Care Provider Unavailabl e [facility], Pcp Primary Care Provider Unavailabl e Reason for Visit * Reason Comments E-prescribe Rx Request Encounter Details Date Type Department Care Team Description 10/18/2020 Refill Adult Medicine [address] [address] Brandon Gutierrez MD [address] [place] [address] [phone] E-prescribe Rx Request Social History Tobacco Use [...] ?? Patients current insurance carrier is: Payor: [employer] FFS / Plan: [place] / Product Type: MEDICAID RISK ?? documented in this encounter Plan of Treatment Not on file documented as of this encounter Visit Diagnoses Diagnosis Benign localized prostatic hyperplasia with lower urinary tract symptoms (LUTS) Benign localized hyperplasia of prostate with urinary obstruction and other lower urinary tract symptoms (LUTS) documented in this encounter Care Teams Store Promoter Relationship Specialty Start Date End Date rBandon Gutierrez MD [address] [place] [address] PCP - General 01/12/20 10/21/20 Kacie Gooden MD [address] [place] [address] PCP - General Internal Medicine 10/22/20 11/06/[address] [place] [address] PCP - General Internal Medicine 11/07/21 03/11/[address] [place] [address] PCP - General Internal Medicine 03/12/23 Brandon Gutierrez MD [address] [place] [address] 01/12/20 Sheng Woodward MD [address] [place] [address] [place] [address] Nurse First Aid Cardiovascular Disease 01/15/20 documented as of this encounter
--- OUTSIDE RECORDS SUMMARY | 2024-07-17 12:02 | XMS_ITS | Encounter Summary ---
Author Organization [facility] Address [address] [place] [address] Care Team Providers Care Briquette Machine Operator Helper Name Role Phone Brandon Gutierrez MD Primary Care Provider + [phone] Brandon Gutierrez MD Primary Care Provider + [phone] Brandon Gutierrez MD Unavailable [phone] Kacie Gooden MD Primary Care Provider Sheng Longoria MD Unavailable [phone] [facility], Pcp Primary Care Provider Unavailabl e [facility], Pcp Primary Care Provider Unavailabl e Encounter Details Date Type Department Care Team Description 08/30/2007 Release of Information Medical Records [address] [place] [id number] Abstract, Provider Social History Tobacco Use Types [...] on file documented as of this encounter Nursing Notes * 08/30/2007 12:00 PM EDT >> ALEXANDER Mendoza Aug 30, 2007 1:50 PM [facility] documented in this encounter Plan of Treatment Not on file documented as of this encounter Visit Diagnoses Not on filedocumented in this encounter Care Teams Briquette Machine Operator Helper Relationship Specialty Start Date End Date Brandon Gutierrez MD [address] [place] [address] PCP - General 09/15/99 01/11/20 Brandon Gutierrez MD [address] [place] [address] PCP - General 01/12/20 10/21/20 Kacie Gooden MD [address] [place] [address] PCP - General Internal Medicine 10/22/20 11/06/21 [facility], [address] [place] [address] PCP - General Internal Medicine 11/07/21 03/11/23 [facility], [address] [place] [address] PCP - General Internal Medicine 03/12/23 Brandon Gutierrez MD [address] [place] [address] 01/12/20 Sheng Woodward MD [address] [place] [address] [place] [address] Pipe Cleaning Machine Operator Cardiovascular Disease 01/15/20 documented as of this encounter
--- OUTSIDE RECORDS SUMMARY | 2024-07-17 12:02 | XMS_ITS | Encounter Summary ---
Author Organization [facility] Address [address] [place] [address] Care Team Providers Care Environmental Services Aide Name Role Phone Brandon Gutierrez MD Primary Care Provider + [phone] Brandon Gutierrez MD Unavailable [phone] Kacie Gooden MD Primary Care Provider Sheng Longoria MD Unavailable [phone] [facility], Pcp Primary Care Provider Unavailabl e [facility], Pcp Primary Care Provider Unavailabl e Encounter Details Date Type Department Care Team Description 01/15/2020 Reconstructive Surgeon Report Medical Records [address] [place] [address] Sheng Woodward MD [address] [place] [address] Dr Romero [address] [place] [address] Social History Tobacco Use Types Packs/Day Years [...] on filedocumented in this encounter Care Teams Environmental Services Aide Relationship Specialty Start Date End Date Brandon Gutierrez MD [address] [place] [address] PCP - General 01/12/20 10/21/20 Kacie Gooden MD [address] [place] [address] PCP - General Internal Medicine 10/22/20 11/06/21 [facility], [address] [place] [address] PCP - General Internal Medicine 11/07/21 03/11/[address] [place] [address] PCP - General Internal Medicine 03/12/23 Brandon Gutierrez MD [address] [place] [address] 01/12/20 Sheng Woodward MD [address] [place] [address] [place] [address] Through Operator Cardiovascular Disease 01/15/20 documented as of this encounter
--- OUTSIDE RECORDS SUMMARY | 2024-07-17 12:02 | XMS_ITS | Encounter Summary ---
Author Organization [facility] Address [address] [place] [address] Care Team Providers Care Director Of Vocational Guidance Name Role Phone Brandon Gutierrez MD Unavailable [phone] Kacie Gooden MD Primary Care Provider Sheng Longoria MD Unavailable [phone] [facility], Pcp Primary Care Provider Unavailabl e [facility], Pcp Primary Care Provider Unavailabl e Reason for Visit * Reason Onset Date Comments Medication 06/18/2021 Encounter Details Date Type Department Care Team Description 06/18/2021 Refill Gastroenterology - [place] [address] [facility] [address] [place] [address] Noam Parker MD [address] [place] [address] [phone] Medication Social History Tobacco Use Types Packs/Day [...] on filedocumented in this encounter Care Teams Director Of Vocational Guidance Relationship Specialty Start Date End Date Kacie Gooden MD [address] [place] [address] PCP - General Internal Medicine 10/22/20 11/06/[address] [place] [address] PCP - General Internal Medicine 11/07/21 03/11/[address] [place] [address] PCP - General Internal Medicine 03/12/23 Brandon Gutierrez MD [address] [place] [address] 01/12/20 Sheng Woodward MD [address] [place] [address] [place] [address] Gis Database Administrator Cardiovascular Disease 01/15/20 documented as of this encounter
[2024-07-17 13:01] LABS: MANUAL DIFF FLAG NO
[2024-07-17 13:20] LABS: Basophils Absolute Auto 0.1 X10*3/uL (0.0-0.2); Basophils Percent Auto 1.4 % (0-2); Eosinophils Absolute Auto 0.2 X10*3/uL (0.0-0.4); Eosinophils Percent Auto 3.1 % (0-4); Hematocrit 43.5 % (42.0-52.0); Hemoglobin 14.4 g/dl (14.0-18.0); Imm Gran Abs Auto 0.01 X10*3/uL (0.00-0.03); Imm Gran Pct Auto 0.2 % (0.0-0.4); Lymphocytes Absolute Auto 2.1 X10*3/uL (1.2-4.9); Mean Corpuscular HGB Conc 33.1 g/dl (31.0-36.0); Mean Corpuscular Hemoglobin 30.2 pg (27.0-33.0); Mean Corpuscular Volume 91.2 fL (80.0-98.0); Mean Platelet Volume 11.1 fL (9.4-12.4); Monocytes Absolute Auto 0.5 X10*3/uL (0.1-1.2); Neutrophils Absolute Auto 3.1 x10*3/uL (2.0-8.3); Neutrophils Percent Auto 52.3 % (45-73); Platelet Count 210 X10*3/uL (160-400); Red Blood Count 4.77 X10*6/uL (4.60-5.80); Red Cell Distribution Width 13.7 % (11.0-16.0); White Blood Count 5.9 X10*3/uL (4.8-10.8)
[2024-07-17 13:30] LABS: Alanine Aminotransferase 29 U/L (0-40); Aspartate Amino Transferase 27 U/L (5-37); C Reactive Protein 0.14 mg/dL (< or = 0.50); Estimated Glomerular Filt Rate > 60
[2024-07-17 14:01] LABS: Erythrocyte Sedimentation Rate 5 MM/HR (0-15)
== END 2024-07-17 11:20 | disposition home or self-care (01) ==
LOC: HO.HMGCLDS 11:19
PROVIDERS: Internal Medicine Rheumatology; Visit Provider Urology
DX: Z79.899 Other long term (current) drug therapy (principal); Z79.60 Long term (current) use of unspecified immunomodulators and immunosuppressants
CPT/HCPCS: 36415; 82565; 84450; 84460; 85025; 85652; 86140

== ENCOUNTER 2024-08-23 14:14 | Outpatient (REF) | payer MEDICARE, SELFPAY ==
--- NOTE | ~2024-08-23 | XR_ITS ---
EXAMINATION: XR FOOT, LEFT CLINICAL INFORMATION: M79.672 - Pain in left foot COMPARISON: None available. TECHNIQUE: AP, lateral, and oblique views of the left foot. FINDINGS: There is hallux valgus deformity. There are minimal marginal osteophytes involving the first metatarsophalangeal joint. There is mild splaying between the second and third digits. XR/XR foot LT min 3V IMPRESSION: Hallux valgus deformity with early changes of osteoporosis. There is splaying between the second and third toes. This appearance has a weak association with Valadez's neuroma. If there are signs and symptoms of Valadez's neuroma, follow-up with MRI of the forefoot without and with IV contrast. Electronically signed by: Demetri Mendez MD 08/23/2024 04:07 PM EDT
== END 2024-08-23 14:15 | disposition home or self-care (01) ==
LOC: HO.HMGCX 14:14
PROVIDERS: PCP Internal Medicine; Visit Provider Internal Medicine Rheumatology
DX: M79.672 Pain in left foot (principal); M06.00 Rheumatoid arthritis without rheumatoid factor, unspecified site; Z79.631 Long term (current) use of antimetabolite agent; Z87.891 Personal history of nicotine dependence
CPT/HCPCS: 73630; 99212

== ENCOUNTER 2024-08-23 14:14 | Outpatient (AMB) | payer MEDICARE, SELFPAY ==
--- NOTE | 2024-08-23 14:17 | A.OFFVIS_ITS ---
Vital Signs 08/23/24 14:19 Height 5 ft 8 in Weight 186 lb BMI 28.3 BP 130/80 Blood Pressure Location Rt brachial Position Sitting Intake Visit Reasons: RA Intake Note: Pt presents today for RA follow up. Allergies No Known Allergies Allergy (Verified 08/23/24 14:19) HPI HPI RA: Details: Pain improved with prednisone course. He still has foot pain. He stubbed his toes in his left foot. He has bruising on his toe. Pain is in lateral feet. Pain has improved compared to yesterday. MS 5 minutes. Feels lethargic and low energy. He started doing exercise, which is encouraging.Able to do squats. Able to get up out of bed PFSH Medical History History of rheumatoid arthritis Basal cell carcinoma, face Hyperlipidemia Prostatism Osteoarthritis of both hands BPH (benign prostatic hyperplasia) Enlarged prostate Surgical History H/O wrist surgery History of carpal tunnel surgery Family History Mother Heart disease Graves disease Father Brain cancer PMR (polymyalgia rheumatica) Social History Household Members: Spouse Housing: House Alcohol intake: former Patient Tobacco Use Status: Former Tobacco user Years Smoked: 10 Physical Exam Vital Signs: Last Vital Signs BP 130/80 08/23/24 14:19 BMI result Body Mass Index 28.3 Const Other: General: Comfortable CVS: RRR Respiratory: clear to auscultation bilaterally. Good respiratory effort Skin: No lesions seen MSK: No tenderness of joints in his hands or wrists. Ulnar deviation of MCPs bilateral. He has right Z thumb. He has subluxation of left 5th MCP on an outstretched hand. Normal range of motion of upper extremity and lower ex tremity. No tenderness of ankles. Tender lateral left foot with dactylitis of 4th toe. He has bruising on the tip of his forth toe. Assessment & Plan Assessment & Plan (1) Seronegative rheumatoid arthritis: Comment: Inflammatory arthritis is better controlled with addition of hydroxychloroquine. He stopped his toe resulting in bruising and swelling. I have ordered an x-ray to rule out fracture. We discussed the importance of consistency with taking maintenance treatment for rheumatoid arthritis in preventing progression of disease, controlling current symptoms and allowing for a good quality of life. He recently started exercising. We discussed the risks and benefits of being on immunosuppressive therapy including the toxicities that are associated with treatment and cancer risk. At this time the risks are low compared to the benefits of being on immunosuppressive therapy hydroxychloroquine and methotrexate. Answered patient's questions to his satisfaction. He currently has fullness in his left ear. I recommend that he seek urgent care/PCP for evaluation to rule out infection. If he is prescribed and antibiotic, he will need to hold methotrexate. Rheumatology history: Seronegative. Deforming. Onset 2010 he had abrupt onset inflammatory arthritis. He was started on prednisone and methotrexate. About a year later he broke his left wrist, he held methotrexate perioperatively. After the surgery however his symptoms seemed to improve on their own and he discontinued his methotrexate. RA relapsed 11/2023. Methotrexate 01/2024-. HCQ 04/2024- Code(s): M06.00 - Rheumatoid arthritis without rheumatoid factor, unspecified site Category: Medical Plan: Continue methotrexate 20 mg once weekly split dose. Continue folic acid 1 mg daily Continue hydroxychloroquine 400 mg daily. 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: Code(s): Z79.631 - detention (current) use of antimetabolite agent Category: Medical Plan: See above Orders: Orders Alanine Aminotransferase 1 Month M06.00 - Rheumatoid arthritis without rheumatoid factor, unspecified site, Z79.60 - intermediate card tender (current) use of unspecified immunomodulators and immunosuppressants, Z79.631 - detention (current) use of antimetabolite agent Aspartate Amino Transferase 1 Month M06.00 - Rheumatoid arthritis without rheumatoid factor, unspecified site, Z79.60 - intermediate card tender (current) use of unspecified immunomodulators and immunosuppressants, Z79.631 - detention (current) use of antimetabolite agent Complete Blood Count Auto Diff 1 Month M06.00 - Rheumatoid arthritis without rheumatoid factor, unspecified site, Z79.60 - intermediate card tender (current) use of unspecified immunomodulators and immunosuppressants, Z79.631 - intermediate card tender (current) use of antimetabolite agent XR foot LT min 3V Today M79.672 - Pain in left foot Erythrocyte Sedimentation Rate 1 Month M06.00 - Rheumatoid arthritis without rheumatoid factor, unspecified site, Z79.631 - detention (current) use of antimetabolite agent C Reactive Protein 1 Month M06.00 - Rheumatoid arthritis without rheumatoid factor, unspecified site, Z79.631 - intermediate card tender (current) use of antimetabolite agent Creatinine 1 Month M06.00 - Rheumatoid arthritis without rheumatoid factor, unspecified site, Z79.60 - intermediate card tender (current) use of unspecified immunomodulators and immunosuppressants, Z79.631 - intermediate card tender (current) use of antimetabolite agent Medications: Changed From hydroxychloroquine 400 mg (2 x 200 mg) PO DAILY 60 tabs 2RF To hydroxychloroquine 400 mg (2 x 200 mg) PO DAILY 180 tabs 1RF 90 days Coding Level of Care Code Est Pt Level 4 (43298) Complex EM visit Add On G2211 Diagnoses Seronegative rheumatoid arthritis M06.00 detention methotrexate user Z79.631 Time Spent (min) 35
[2024-08-23 14:19] VITALS: BP 130/80; BMI 28.3
== END 2024-08-23 15:06 | disposition home or self-care (01) ==
LOC: HO.RHES 14:15
PROVIDERS: PCP Internal Medicine; Visit Provider Internal Medicine Rheumatology
DX: M06.00 Rheumatoid arthritis without rheumatoid factor, unspecified site (principal); Z79.631 Long term (current) use of antimetabolite agent
CPT/HCPCS: 99214; G2211

== ENCOUNTER → 2024-08-23 15:50 | Outpatient (BNV) | payer MEDICARE, SELFPAY | PROVIDERS: PCP Internal Medicine; Visit Provider Radiology Diagnostic Radiology | DX: M20.12 Hallux valgus (acquired), left foot (principal) | CPT/HCPCS: 73630 ==

== ENCOUNTER 2024-11-09 09:47 | Outpatient (REF) | payer MEDICARE, SELFPAY ==
--- OUTSIDE RECORDS SUMMARY | 2024-11-09 11:38 | XMS_ITS ---
Author Name [facility] Organization Unknown Care Team Organization Name Specialty Phone Email Start Date End Da te [facility] Aleks Styles Primary Care 01/06/2022
[2024-11-09 13:25] LABS: MANUAL DIFF FLAG NO
[2024-11-09 13:31] LABS: Hematocrit 44.5 % (42.0-52.0); Hemoglobin 14.7 g/dl (14.0-18.0); Imm Gran Abs Auto 0.01 X10*3/uL (0.00-0.03); Imm Gran Pct Auto 0.2 % (0.0-0.4); Lymphocytes Absolute Auto 1.8 X10*3/uL (1.2-4.9); Mean Corpuscular HGB Conc 33.0 g/dl (31.0-36.0); Mean Corpuscular Hemoglobin 29.8 pg (27.0-33.0); Mean Corpuscular Volume 90.3 fL (80.0-98.0); NRBC Abs Auto 0.000 X10*3/uL (0.0-0.012); NRBC Pct Auto 0.0 /100WBC (0.0-0.2); Platelet Count 192 X10*3/uL (160-400); Red Blood Count 4.93 X10*6/uL (4.60-5.80); White Blood Count 5.6 X10*3/uL (4.8-10.8)
[2024-11-09 14:10] LABS: Alanine Aminotransferase 46 U/L (0-40); Aspartate Amino Transferase 28 U/L (5-37); Estimated Glomerular Filt Rate > 60; Prostate Specific Antigen 0.67 ng/mL (<0.05-4.0)
== END 2024-11-09 09:48 | disposition home or self-care (01) ==
LOC: HO.HMGCLDS 09:47
PROVIDERS: Referring Provider Urology; Visit Provider Internal Medicine Rheumatology
DX: E29.1 Testicular hypofunction (principal); M06.00 Rheumatoid arthritis without rheumatoid factor, unspecified site; Z12.5 Encounter for screening for malignant neoplasm of prostate; Z79.60 Long term (current) use of unspecified immunomodulators and immunosuppressants; Z79.631 Long term (current) use of antimetabolite agent
CPT/HCPCS: 36415; 82565; 84153; 84403; 84450; 84460; 85025; 85652; 86140

== ENCOUNTER 2024-11-28 08:45 | Outpatient (AMB) | payer MEDICARE, SELFPAY ==
[2024-11-28 08:48] VITALS: BP 110/70; PULSE 72; O2SAT 97; BMI 27.9
--- NOTE | 2024-11-28 08:48 | MHC.OFFVIS ---
Vital Signs 11/28/24 08:48 Height 5 ft 8 in Weight 183 lb 3.266 oz BMI 27.9 BP 110/70 Blood Pressure Location Rt brachial Position Sitting Pulse 72 Pulse Source Pulse Oximeter Pulse Oximetry (%) 97 Oxygen Delivery Method Room Air Intake Visit Reasons: 3 Months Intake Note: Pt presents today for RA follow up. Accompanied by: Spouse Allergies No Known Allergies Allergy (Verified 11/28/24 08:51) HPI HPI 3 Months: Details: MS minutes. R foot pain occurs with ambulation. Muscle weakness. Has more energy. Doing more activities. No recent infections. PFSH Medical History History of rheumatoid arthritis Basal cell carcinoma, face Hyperlipidemia Prostatism Osteoarthritis of both hands BPH (benign prostatic hyperplasia) Enlarged prostate Surgical History H/O wrist surgery History of carpal tunnel surgery Family History Mother Heart disease Graves disease Father Brain cancer PMR (polymyalgia rheumatica) Social History Household Members: Spouse Housing: House Alcohol intake: former Patient Tobacco Use Status: Former Tobacco user Years Smoked: 10 Physical Exam Vital Signs: Last Vital Signs Pulse 72 11/28/24 08:48 BP 110/70 11/28/24 08:48 Pulse Ox 97 11/28/24 08:48 Oxygen Delivery Method Room Air 11/28/24 08:48 BMI result Body Mass Index 27.9 Const Other: General: Comfortable CVS: RRR Respiratory: clear to auscultation bilaterally. Good respiratory effort Skin: No lesions seen MSK: No tenderness of joints in his hands or wrists. Ulnar deviation of MCPs bilateral. He has right Z thumb. He has subluxation of left 5th MCP on an outstretched hand. Normal range of motion of upper extremity and lower extremity. No tenderness of ankles. Assessment & Plan Assessment & Plan (1) Seronegative rheumatoid arthritis: Comment: Inflammatory arthritis is controlled with hydroxychloroquine and methotrexate. He developed mild transaminitis on recent labs. He continues to have left lateral foot pain. Unremarkable exam. We discussed importance of having good foot support. He will work on strengthening his extremities. Rheumatology history: Seronegative. Deforming. Onset 2010 he had abrupt onset inflammatory arthritis. He was started on prednisone and methotrexate. About a year later he broke his left wrist, he held methotrexate perioperatively. After the surgery however his symptoms seemed to improve on their own and he discontinued his methotrexate. RA relapsed 11/2023. Methotrexate 01/2024-. HCQ 04/2024- Code(s): M06.00 - Rheumatoid arthritis without rheumatoid factor, unspecified site Category: Medical Plan: Continue methotrexate 20 mg once weekly split dose. Continue folic acid 1 mg daily Continue hydroxychloroquine 400 mg daily. Requesting recent eye exam for hydroxychloroquine surveillance. Labs for disease and drug monitoring on high-risk medication ordered to be done in 1 month-rechecking LFTs. 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
== END 2024-11-28 09:18 | disposition home or self-care (01) ==
LOC: HO.RHES 08:45
PROVIDERS: PCP Internal Medicine; Visit Provider Internal Medicine Rheumatology
DX: M06.00 Rheumatoid arthritis without rheumatoid factor, unspecified site (principal); Z79.631 Long term (current) use of antimetabolite agent
CPT/HCPCS: 99214; G2211

== ENCOUNTER → 2024-11-28 08:45 | Outpatient (BNVA) | payer MEDICARE, SELFPAY | PROVIDERS: PCP Internal Medicine; Visit Provider Internal Medicine Rheumatology | DX: N40.0 Benign prostatic hyperplasia without lower urinary tract symptoms (principal); E29.1 Testicular hypofunction; Z79.631 Long term (current) use of antimetabolite agent; M06.09 Rheumatoid arthritis without rheumatoid factor, multiple sites | CPT/HCPCS: 99211; 99212 ==

== ENCOUNTER 2024-11-28 14:36 | Outpatient (AMB) | payer MEDICARE, SELFPAY ==
--- NOTE | 2024-11-28 14:37 | A.OFFVIS_ITS ---
Intake Visit Reasons: follow up labs Intake Note: Patient is present for follow up Urology Med: Terazosin, Tadalafil Antibiotic Allergy: None Blood Thinner: Aspirin LABS: 11/09/2024 -Total Testosterone: 300 - PSA : 0.67 Market Superintendent Required: No Accompanied by: Self / Same As Patient Allergies No Known Allergies Allergy (Verified 11/28/24 14:39) HPI Comments Details: Leno is a very pleasant male. He is a patient of Dr. Duong. Seen for the following urologic conditions - lower urinary tract symptom - hypogonadism Telemedicine Evaluation 15 min Consultation [employer] Anu Video Six-month follow-up Persistently low total testosterone with adequate free testosterone Symptomatically stable Continue tadalafil daily which has helped stabilize testosterone Rosuvastatin well known testosterone suppressant as is methotrexate Trial enclomiphene for 6 months Lower urinary tract symptoms Initial presentation with progressive weakness of stream, nocturia Current therapy terazosin Prior procedure 1999 for bladder neck Hypogonadism Labs 10/20 235, 12/20 285, T 04/23 310 F 46 FSH 9 LH 5.2, 10/21 T 266 F 62 LH 5.8, 07/22 T 268 FSH 8.2 LH 5.8, 01/22 T 161, 11/23 300 Low interest, normal erections On statins 40mg rosuvastatin PFSH Medical History History of rheumatoid arthritis Basal cell carcinoma, face Hyperlipidemia Prostatism Osteoarthritis of both hands BPH (benign prostatic hyperplasia) Enlarged prostate Surgical History H/O wrist surgery History of carpal tunnel surgery Family History Mother Heart disease Graves disease Father Brain cancer PMR (polymyalgia rheumatica) Social History Household Members: Spouse Housing: House Alcohol intake: former Patient Tobacco Use Status: Former Tobacco user Years Smoked: 10 Review of Systems Const All systems reviewed & are unremarkable except as noted in HPI and below Reports no additional complaints Card Reports no additional complaints and Denies syncope Resp Reports no additional complaints GI Reports no additional complaints Reports as per HPI and Denies change in libido Musc Reports no additional complaints Neuro Denies syncope Psych Denies change in libido Endo Denies change in libido Physical Exam Telemedicine evaluation Appropriate responses Regular breathing rate and rhythm HEENT Head: Yes normal to inspection Ears: hearing grossly normal bilaterally Eyes General: appearance normal, both eyes and all related structures Neck Neck: Yes normal visual inspection Chest Chest palpation & inspection: normal inspection of the chest Resp Effort & Inspection: normal respiratory effort and able to speak in complete sentences Telehealth Telehealth Telehealth Platform: [employer] Location of provider rendering services: practice address Location of patient: address on file Patient Identification confirmed using: Name, : Yes Telehealth method: video Patient verbally consented to treatment: Yes Patient verbally consented to billing insurance company: Yes Patient informed of any privacy concerns related to visit: Yes Minutes spent on Phone/Video with Pt.: 15 Assessment & Plan Assessment & Plan (1) BPH (benign prostatic hyperplasia): Code(s): N40.0 - Benign prostatic hyperplasia without lower urinary tract symptoms Category: Medical (2) Hypogonadism in male: Code(s): E29.1 - Testicular hypofunction Category: Medical Plan trial enclomiphene Orders: Orders Testosterone, Free/Total 5 Months E29.1 - Testicular hypofunction Estrad Free (Tot Ultra + Free) 5 Months E29.1 - Testicular hypofunction Lutenizing Hormone 5 Months E29.1 - Testicular hypofunction Medications: New [enclomiphene] [facility] - Fax Patient Cell Number - [phone] 1 tab PO DAILY 90 tabs 1RF [facility] - Fax 90 days E29.1 - Testicular hypofunction Refilled terazosin 10 mg PO BEDTIME 90 caps 1RF 90 days E29.1 - Testicular hypofunction Patient Instructions: This note is constructed using voice recognition software. While every effort has been made to ensure accuracy bus and rail operator errors may have been included. Imaging studies, laboratory and physical exam results were discussed and reviewed in detail. No major barriers to patient understanding were identified. An opportunity to ask questions regarding the treatment plan was provided. All questions were answered. The patient expressed understanding and agreement with the above treatment plan. The patient is aware they should contact our office by phone for worsening of their current condition or the appearance of new urologic symptoms. Compliance is encouraged with any medications and followup testing that is ordered. It is a privilege to participate in the urologic care of your patient. If you have any questions or concerns regarding treatment for the above conditions, or other urologic issues, please do not hesitate to contact me. The office telephone contact is [phone]. Sincerely, Dr Cosme Astorga MD, [facility] - Urology Compassionate Specialist Care for the Genitourinary System Coding Level of Care Code Tele Est Pt Level 4 (69600) Complex EM visit Add On G2211 Diagnoses BPH (benign prostatic hyperplasia) N40.0 Hypogonadism in male E29.1
== END 2024-11-28 16:30 | disposition home or self-care (01) ==
LOC: HO.HUSH 14:36
PROVIDERS: PCP Internal Medicine; Visit Provider Urology
DX: N40.0 Benign prostatic hyperplasia without lower urinary tract symptoms (principal); E29.1 Testicular hypofunction
CPT/HCPCS: 99214; G2211

== ENCOUNTER 2024-12-12 08:16 | Outpatient (REF) | payer MEDICARE, SELFPAY ==
[2024-12-12 11:03] LABS: Alanine Aminotransferase 33 U/L (0-40); Aspartate Amino Transferase 25 U/L (5-37)
[2024-12-17 16:58] LABS: Testosterone, Free 59.4 pg/mL (35.0-155.0)
== END 2024-12-12 08:17 | disposition home or self-care (01) ==
LOC: HO.HMGCLDS 08:16
PROVIDERS: Absent Provider Internal Medicine Rheumatology; PCP Internal Medicine; Visit Provider Urology
DX: R68.82 Decreased libido (principal); Z79.60 Long term (current) use of unspecified immunomodulators and immunosuppressants
CPT/HCPCS: 36415; 83002; 84270; 84402; 84403; 84450; 84460